=== PATIENT | female | born 1945 | race Caucasian/White ===

== ENCOUNTER 2018-02-14 01:58 | Outpatient (CLI) | payer BC, SELFPAY ==
[2018-02-14 11:52] LABS: CREATININE 0.88 mg/dL (0.55-1.02); Cholesterol 183 mg/dL (50-200); HDL Cholesterol 40 mg/dL (40-60); LDL CHOLESTEROL 114 mg/dL (<100); Triglyceride 189 mg/dL (30-150)
[2018-02-14 12:50] LABS: Hemoglobin A1C 6.2 % (4.5-6.2)
== END 2018-02-14 02:18 ==
PROVIDERS: PCP Family Medicine; Visit Provider Family Medicine
DX: E11.9 Type 2 diabetes mellitus without complications (principal); I10 Essential (primary) hypertension; Z13.220 Encounter for screening for lipoid disorders
CPT/HCPCS: 36415; 80061; 83721; 82565; 83036

== ENCOUNTER 2018-03-18 15:05 | Emergency (ER) | payer BC, MEDICARE, SELFPAY ==
[2018-03-18 15:27] VITALS: BP 167/76; PULSE 80; RESP 18; TEMP 36.4; O2SAT 97
--- NOTE | 2018-03-18 15:36 | DI.RAD_ITS ---
SYMPTOM/DIAGNOSIS: TRAUMA, SWELLING PAIN LEFT ANKLE: There is a comminuted fracture of the distal fibula which is not significantly displaced or angulated. There is a small declivity centrally in the talar dome which could represent an acute or old osteochondral defect. A calcaneal spur is seen. No ankle mortise widening is visible. IMPRESSION: Nondisplaced comminuted fracture of the distal fibula. Question of an old or new osteochondral defect of the talar dome.
--- NOTE | 2018-03-18 16:23 | DI.VRAD_ITS ---
EXAM: XR Left Ankle Complete, 3 or more Views EXAM DATE/TIME: 03/18/2018 3:39 PM CLINICAL HISTORY: 73 years old, female; Pain; Ankle; Left; Patient HX: Slipped on ice; Additional info: L ankle swelling TECHNIQUE: XR Left ankle 3 or more views. COMPARISON: No relevant prior studies available. FINDINGS: Bones/joints: Nondisplaced fracture the distal fibula metaphysis. Minimal degenerative arthrosis of the ankle joint. Findings suspicious for a tiny osteochondral defect within the central aspect of the talus dome. Large superior calcaneal spur. Soft tissues: Swelling of the lateral ankle soft tissues. IMPRESSION: 1. Nondisplaced fracture the distal fibular metaphysis. 2. Findings suspicious for tiny osteochondral defect of the central portion of the talus dome. Dictated and Authenticated by: Vinod Jama MD. Ordering:KELLY Arshad MD
--- NOTE | 2018-03-18 16:35 | W.ED.GENAD ---
Discharge Plan Disposition Patient Disposition: HOME Discharge Details Chief Complaint: Orthopedic Primary Care Provider: Wesly Ren ED Provider: Jeancarlos Chaudhary Home Meds and New Rx's Prescriptions: No Action uktuinbh-uummbbinj-DQ 3.5-10,000-1 mg/mL-unit/mL-% drops,suspension 1 - 2 drp Otic BID PRN Qty: 10 RF: 1 pravastatin 40 mg tablet 40 mg PO HS Qty: 90 RF: 4 trazodone 100 mg tablet 100 mg PO DAILY Qty: 90 RF: 3 triamcinolone acetonide 0.1 % cream 1 applic Topical BID PRN (Reason: ankle rash) Qty: 15 RF: 2 doxycycline hyclate 100 mg capsule 100 mg PO BID Qty: 14 RF: 0 famotidine 20 MG tablet 20 mg PO BID Qty: 60 RF: 11 OneTouch Ultra Test 1 EACH strip 1 strip Miscellaneous BID Qty: 200 RF: 4 aspirin [Canones Aspirin] 81 MG tablet,delayed release (DR/EC) 81 mg PO DAILY Qty: 90 RF: 3 glipizide 5 mg tablet 2.5 - 5 mg PO BID Qty: 135 RF: 4 metformin 500 mg tablet 250 - 500 mg PO BID Qty: 135 RF: 3 ibuprofen 200 MG tablet 400 mg PO DAILY PRN PRNRF: 0 Discharge Data Discharge Date/Time-TO BE ENTERED AT DEPARTURE: 03/18/18 17:15 Medical Decision Making Patient presented the emergency department status post slip and fall on ice and left ankle injury. Patient states lateral ankle pain after fall and difficulty with weightbearing. X-ray imaging was ordered. Patient denied any need of pain medication pending results Review of radiological imaging shows a nondisplaced fracture of the distal fibula and radiologist is seeing findings suggestive of possible talar defect. Patient placed in a walking boot, instructed to be nonweightbearing, and to use a walker. Patient was given a walker due to patient's age and inability to fully utilize crutches and appropriate manner and I feel crutches may increase patient's chance of fall. Patient states that she did not want any medication for pain above [id number] Tylenol or Motrin. Patient placed up on fracture list for orthopedic follow-up and informed to call the office on Tuesday for arrangement of follow-up appointment HPI General Date/Time Provider Initiated Documentation: 03/18/18 15:36. Limitations to Documentation: no limitations. Information obtained by: patient and RN notes reviewed. History of Present Illness 73 year old F presents to the emergency department with the chief complaint of Right ankle injury, described as moderate, with intensity rated at 9. Quality is described as sharp, and is localized to the right and lower extremity. Patient started experiencing this hour(s) (3) and it has been constant. No relieving factors improve symptom(s), Movement worsens symptoms . Patient notes no other symptoms.. Patient did receive the following treatments prior to arrival, none Related Data Home Medications Medication Instructions Recorded Confirmed ibuprofen 400 mg PO DAILY PRN PRN 05/29/13 03/18/18 famotidine 20 mg PO BID #60 tab-cap 06/05/15 03/18/18 blood sugar diagnostic [Onetouch #200 strip 06/15/17 03/18/18 Ultra Test Strips] aspirin [Canones Aspirin] 81 mg PO DAILY #90 tab-cap 06/20/17 03/18/18 glipizide 5 mg tablet 2.5 - 5 mg PO BID #135 tab-cap 12/22/17 03/18/18 metformin 500 mg tablet 250 - 500 mg PO BID #135 tab-cap 12/22/17 03/18/18 doxycycline hyclate 100 mg capsule 100 mg PO BID #14 cap 02/17/18 02/17/18 otzbmjgp-detftogic-ethqwjgjb 3.5 1 - 2 drp OTIC BID PRN #10 ml 02/17/18 03/18/18 mg-10,000 unit/mL-1 % ear drops,susp pravastatin 40 mg tablet 40 mg PO HS #90 tab-cap 02/17/18 03/18/18 trazodone 100 mg tablet 100 mg PO DAILY #90 tab 02/17/18 03/18/18 triamcinolone acetonide 0.1 % 1 applic TOPICAL BID PRN #15 gm 02/17/18 03/18/18 topical cream Previous Rx's Medication Instructions Recorded blood sugar diagnostic [Onetouch #200 strip 06/15/17 Ultra Test Strips] aspirin [Canones Aspirin] 81 mg PO DAILY #90 tab-cap 06/20/17 glipizide 5 mg tablet 2.5 - 5 mg PO BID #135 tab-cap 1018 metformin 500 mg tablet 250 - 500 mg PO BID #135 tab-cap 12/22/17 doxycycline hyclate 100 mg capsule 100 mg PO BID #14 cap 02/17/18 pyrxdxkw-vopfnpnlg-zmdsvxdxq 3.5 1 - 2 drp OTIC BID PRN #10 ml 02/17/18 mg-10,000 unit/mL-1 % ear drops,susp pravastatin 40 mg tablet 40 mg PO HS #90 tab-cap 02/17/18 trazodone 100 mg tablet 100 mg PO DAILY #90 tab 02/17/18 triamcinolone acetonide 0.1 % 1 applic TOPICAL BID PRN #15 gm 02/17/18 topical cream Allergies Allergy/AdvReac Type Severity Reaction Status Date / Time Sulfa (Sulfonamide Allergy Mild swelling Unverified 03/18/18 15:30 Antibiotics) to bottom lip morphine AdvReac Severe GI UPSET Unverified 03/18/18 15:30 tetracycline AdvReac Unknown GI UPSET Unverified 03/18/18 15:30 General Stated Complaint: Orthopedic JESSICA: 4 Review of Systems Cardiovascular Denies syncope Musculoskeletal Reports as per HPI, Denies numbness and Denies tingling Integumentary/Breasts Denies rash, Denies sores and Denies wounds Neurologic Denies syncope, Denies numbness and Denies tingling PFSH Medical History Constipation DM (diabetes mellitus) GERD (gastroesophageal reflux disease) Surgical History Breast, Mastectomy Cholecystectomy (~04/2009) Colonoscopy - MAC (07/14/16) EGD - MAC breast reconstruction Family History Mother No problems noted. Father Diabetes Heart disease Sister No problems noted. Brother Diabetes Essential hypertension Heart disease Hypercholesteremia Skin cancer Maternal Grandfather Heart disease Paternal Grandfather No problems noted. Maternal Grandmother Uterine cancer Paternal Grandmother No problems noted. Daughter Medulloblastoma Hyperlipidemia Maternal Aunt Breast cancer Nephew ALS (amyotrophic lateral sclerosis) Social History current occupational status: retired pets and animals: Yes pets and animals: cat(s) frequency: 1-2 times per week duration: 15-30 minutes/day Smoking/Tobacco Use Status: Never alcohol intake: current alcohol intake frequency: holidays/special occasions only substance use type: does not use rea/religious: [employer] special rea needs: No Exam Const General: cooperative and no acute distress Orientation: alert, awake and oriented x3 HENMT Head: atraumatic Resp Effort & Inspection: normal respiratory effort and able to speak in complete sentences Cardio Rate: regular rate Rhythm: regular rhythm Extrem Right lower extremity: knee Details: normal to inspection; no tenderness, lower leg Details: no tenderness and ankle Details: tenderness Location: of the lateral malleolus, swelling Details: laterally and abnormal ROM Details: pain with active ROM and pain with passive ROM; achilles tendon exam normal Left lower extremity: normal to inspection Course Vital Signs Temperature 36.4 C L 03/18/18 15:27 Pulse 80 03/18/18 15:27 Respiratory Rate 18 03/18/18 15:27 Blood Pressure 167/76 H 03/18/18 15:27 Pulse Oximetry 97 03/18/18 15:27 Temperature 36.4 C L 03/18/18 15:27 Temperature Source Temporal Artery Scan 03/18/18 15:27 Pulse 80 03/18/18 15:27 Respiratory Rate 18 03/18/18 15:27 Respiratory Effort Non-Labored 03/18/18 15:29 Blood Pressure 167/76 H 03/18/18 15:27 Blood Pressure Position Sitting 03/18/18 15:27 Pulse Oximetry 97 03/18/18 15:27 Oxygen Delivery Method Room Air 03/18/18 15:27 Oxygen Flow Rate 0 03/18/18 15:27 Pain Level 9 03/18/18 15:35
--- NOTE | 2018-03-18 16:41 | ED.GENADUL_ITS ---
Discharge Plan Disposition Patient Disposition: HOME Discharge Details Chief Complaint: Orthopedic Primary Care Provider: Wesyl Ren ED Provider: Jeancarlos Chaudhary Home Meds and New Rx's Prescriptions: No Action bxvucrqa-vvlavonse-DV 3.5-10,000-1 mg/mL-unit/mL-% drops,suspension 1 - 2 drp Otic BID PRN Qty: 10 RF: 1 pravastatin 40 mg tablet 40 mg PO HS Qty: 90 RF: 4 trazodone 100 mg tablet 100 mg PO DAILY Qty: 90 RF: 3 triamcinolone acetonide 0.1 % cream 1 applic Topical BID PRN (Reason: ankle rash) Qty: 15 RF: 2 doxycycline hyclate 100 mg capsule 100 mg PO BID Qty: 14 RF: 0 famotidine 20 MG tablet 20 mg PO BID Qty: 60 RF: 11 OneTouch Ultra Test 1 EACH strip 1 strip Miscellaneous BID Qty: 200 RF: 4 aspirin [Blanchard Aspirin] 81 MG tablet,delayed release (DR/EC) 81 mg PO DAILY Qty: 90 RF: 3 glipizide 5 mg tablet 2.5 - 5 mg PO BID Qty: 135 RF: 4 metformin 500 mg tablet 250 - 500 mg PO BID Qty: 135 RF: 3 ibuprofen 200 MG tablet 400 mg PO DAILY PRN PRNRF: 0 Discharge Data Discharge Date/Time-TO BE ENTERED AT DEPARTURE: 03/18/18 17:15 Medical Decision Making Patient presented the emergency department status post slip and fall on ice and left ankle injury. Patient states lateral ankle pain after fall and difficulty with weightbearing. X-ray imaging was ordered. Patient denied any need of pain medication pending results Review of radiological imaging shows a nondisplaced fracture of the distal fibula and radiologist is seeing findings suggestive of possible talar defect. Patient placed in a walking boot, instructed to be nonweightbearing, and to use a walker. Patient was given a walker due to patient's age and inability to fully utilize crutches and appropriate manner and I feel crutches may increase patient's chance of fall. Patient states that she did not want any medication for pain above [id number] Tylenol or Motrin. Patient placed up on fracture list for orthopedic follow-up and informed to call the office on Tuesday for arrangement of follow-up appointment HPI General Date/Time Provider Initiated Documentation: 03/18/18 15:36 . Limitations to Documentation: no limitations . Information obtained by: patient and RN notes reviewed . History of Present Illness 73 year old F presents to the emergency department with the chief complaint of Right ankle injury, described as moderate, with intensity rated at 9. Quality is described as sharp, and is localized to the right and lower extremity. Patient started experiencing this hour(s) (3) and it has been constant. No relieving factors improve symptom(s), Movement worsens symptoms . Patient notes no other symptoms.. Patient did receive the following treatments prior to arrival, none Related Data Home Medications Medication Instructions Recorded Confirmed ibuprofen 400 mg PO DAILY PRN PRN 05/29/13 03/18/18 famotidine 20 mg PO BID #60 tab-cap 06/05/15 03/18/18 blood sugar diagnostic [Onetouch #200 strip 06/15/17 03/18/18 Ultra Test Strips] aspirin [Blanchard Aspirin] 81 mg PO DAILY #90 tab-cap 06/20/17 03/18/18 glipizide 5 mg tablet 2.5 - 5 mg PO BID #135 tab-cap 12/22/17 03/18/18 metformin 500 mg tablet 250 - 500 mg PO BID #135 tab-cap 12/22/17 03/18/18 doxycycline hyclate 100 mg capsule 100 mg PO BID #14 cap 02/17/18 02/17/18 pstulpfo-vfdzqnstn-bzkflbhzh 3.5 1 - 2 drp OTIC BID PRN #10 ml 02/17/18 03/18/18 mg-10,000 unit/mL-1 % ear drops,susp pravastatin 40 mg tablet 40 mg PO HS #90 tab-cap 02/17/18 03/18/18 trazodone 100 mg tablet 100 mg PO DAILY #90 tab 02/17/18 03/18/18 triamcinolone acetonide 0.1 % 1 applic TOPICAL BID PRN #15 gm 02/17/18 03/18/18 topical cream Previous Rx's Medication Instructions Recorded blood sugar diagnostic [Onetouch #200 strip 06/15/17 Ultra Test Strips] aspirin [Blanchard Aspirin] 81 mg PO DAILY #90 tab-cap 06/20/17 glipizide 5 mg tablet 2.5 - 5 mg PO BID #135 tab-cap 1018 metformin 500 mg tablet 250 - 500 mg PO BID #135 tab-cap 12/22/17 doxycycline hyclate 100 mg capsule 100 mg PO BID #14 cap 02/17/18 cltliryj-hpyjrkxcf-acmzgfwug 3.5 1 - 2 drp OTIC BID PRN #10 ml 02/17/18 mg-10,000 unit/mL-1 % ear drops,susp pravastatin 40 mg tablet 40 mg PO HS #90 tab-cap 02/17/18 trazodone 100 mg tablet 100 mg PO DAILY #90 tab 02/17/18 triamcinolone acetonide 0.1 % 1 applic TOPICAL BID PRN #15 gm 02/17/18 topical cream Allergies Allergy/AdvReac Type Severity Reaction Status Date / Time Sulfa (Sulfonamide Allergy Mild swelling Unverified 03/18/18 15:30 Antibiotics) to bottom lip morphine AdvReac Severe GI UPSET Unverified 03/18/18 15:30 tetracycline AdvReac Unknown GI UPSET Unverified 03/18/18 15:30 General Stated Complaint: Orthopedic JESSICA: 4 Review of Systems Cardiovascular Denies syncope Musculoskeletal Reports as per HPI, Denies numbness and Denies tingling Integumentary/Breasts Denies rash, Denies sores and Denies wounds Neurologic Denies syncope, Denies numbness and Denies tingling PFSH Medical History Constipation DM (diabetes mellitus) GERD (gastroesophageal reflux disease) Surgical History Breast, Mastectomy Cholecystectomy (~04/2009) Colonoscopy - MAC (07/14/16) EGD - MAC breast reconstruction Family History Mother No problems noted. Father Diabetes Heart disease Sister No problems noted. Brother Diabetes Essential hypertension Heart disease Hypercholesteremia Skin cancer Maternal Grandfather Heart disease Paternal Grandfather No problems noted. Maternal Grandmother Uterine cancer Paternal Grandmother No problems noted. Daughter Medulloblastoma Hyperlipidemia Maternal Aunt Breast cancer Nephew ALS (amyotrophic lateral sclerosis) Social History current occupational status: retired pets and animals: Yes pets and animals: cat(s) frequency: 1-2 times per week duration: 15-30 minutes/day Smoking/Tobacco Use Status: Never alcohol intake: current alcohol intake frequency: holidays/special occasions only substance use type: does not use era/church: [employer] special rea needs: No Exam Const General: cooperative and no acute distress Orientation: alert, awake and oriented x3 HENMT Head: atraumatic Resp Effort & Inspection: normal respiratory effort and able to speak in complete sentences Cardio Rate: regular rate Rhythm: regular rhythm Extrem Right lower extremity: knee Details: normal to inspection; no tenderness, lower leg Details: no tenderness and ankle Details: tenderness Location: of the lateral malleolus, swelling Details: laterally and abnormal ROM Details: pain with active ROM and pain with passive ROM; achilles tendon exam normal Left lower extremity: normal to inspection Course Vital Signs Temperature 36.4 C L 03/18/18 15:27 Pulse 80 03/18/18 15:27 Respiratory Rate 18 03/18/18 15:27 Blood Pressure 167/76 H 03/18/18 15:27 Pulse Oximetry 97 03/18/18 15:27 Temperature 36.4 C L 03/18/18 15:27 Temperature Source Temporal Artery Scan 03/18/18 15:27 Pulse 80 03/18/18 15:27 Respiratory Rate 18 03/18/18 15:27 Respiratory Effort Non-Labored 03/18/18 15:29 Blood Pressure 167/76 H 03/18/18 15:27 Blood Pressure Position Sitting 03/18/18 15:27 Pulse Oximetry 97 03/18/18 15:27 Oxygen Delivery Method Room Air 03/18/18 15:27 Oxygen Flow Rate 0 03/18/18 15:27 Pain Level 9 03/18/18 15:35
--- NOTE | 2018-03-18 17:27 | PDOC.ERCMPRO ---
- If Service Date Differs Date of service: 03/18/18 Time of Service: 17:27 Care Management Progress Note Patient seen in ED for need of walker. Cindy was at the ED for a fracture to her left fibula. CM provided patient with a FWW from [employer]. All necessary paperwork signed by patient and forwarded to GRAYL.
--- NOTE | 2018-03-18 18:08 | NUR.NOTE ---
sent home with a walker.Nursing Note:
== END 2018-03-18 17:15 | disposition home or self-care (01) ==
PROVIDERS: Emergency Provider Nurse Practitioner Family; PCP Family Medicine
DX: S82.65XA Nondisplaced fracture of lateral malleolus of left fibula, initial encounter for closed fracture (principal); W00.0XXA Fall on same level due to ice and snow, initial encounter; E11.9 Type 2 diabetes mellitus without complications; Z79.84 Long term (current) use of oral hypoglycemic drugs
CPT/HCPCS: 29505; 99284; 73610

== ENCOUNTER 2018-04-26 10:33 | Outpatient (CLI) | payer OTHER, SELFPAY ==
--- NOTE | 2018-04-26 10:31 | DI.RAD_ITS ---
SYMPTOM/DIAGNOSIS: INJURY, PAIN LEFT ANKLE: Comparison is made with 03/18/18. There has been no change in the previously noted distal fibular fracture which shows some interval healing when compared with the previous exam. No new abnormalities are seen.
== END 2018-04-26 10:53 ==
PROVIDERS: PCP Family Medicine; Visit Provider Physician Assistant Surgical
DX: S82.65XD Nondisplaced fracture of lateral malleolus of left fibula, subsequent encounter for closed fracture with routine healing (principal); M25.572 Pain in left ankle and joints of left foot
CPT/HCPCS: 73600

== ENCOUNTER 2018-11-03 00:39 | Outpatient (CLI) | payer OTHER, SELFPAY ==
--- NOTE | 2018-11-03 13:56 | MERGE_ITS ---
*[facility]* *[facility]* [address] [place] [address] Date of study: 11/03/2018 Transthoracic Echocardiography M-mode, complete 2D, complete spectral Doppler, and color Doppler *STUDY CONCLUSIONS* Summary: 1. Left ventricle: The cavity size was normal. Wall thickness was normal. Systolic function was mildly reduced. The estimated ejection fraction was 45-50%. Diffuse hypokinesis. 2. Right ventricle: The cavity size was normal. Systolic function was normal. 3. Mitral valve: There was moderate regurgitation. 4. Inferior vena cava: The vessel was normal in size. The respirophasic diameter changes were in the normal range (greater than or equal to 50%), consistent with normal central venous pressure. *PATIENT PRESENTATION* Height: 167.6cm (66in ) S/D Pressure: 124 / 75 Weight: 88.9kg (195.6lb ) BSA: 2.06m^2 Test start time: 02:00 PM. Test stop time: 02:45 PM. 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 Pertinent images and digital data are archived for permanent storage and are available for subsequent review. Comparison was made to the study of 01/29/2017. Study status: Routine. Transthoracic echocardiography. M-mode, complete 2D, complete spectral Doppler, and color Doppler. A Transthoracic Echocardiogram was performed. Scanning was performed from the parasternal, apical, subcostal, and suprasternal notch acoustic windows. Images were obtained using an [employer] 2000 cardiac ultrasound machine. Image quality was adequate. Study completion: The patient tolerated the procedure well. There were no complications. History: PMH: Non Rheumatic Mitral Regurgitation. *CARDIAC ANATOMY* Left ventricle: The cavity size was normal. Wall thickness was normal. Systolic function was mildly reduced. The estimated ejection fraction was 45-50%. Diffuse hypokinesis. Findings consistent with diastolic dysfunction. There was no evidence of elevated ventricular filling pressure by Doppler parameters. Aortic valve: Trileaflet; normal thickness leaflets. Mobility was not restricted. Doppler: Transvalvular velocity was within the normal range. There was no stenosis. There was no significant regurgitation. VTI ratio of LVOT to aortic valve: 0.78. Valve area (VTI): 2.8cm^2. Indexed valve area (VTI): 1.3cm^2/m^2. Peak velocity ratio of LVOT to aortic valve: 0.75. Valve area (Vmax): 2.7cm^2. Indexed valve area (Vmax): 1.3cm^2/m^2. Mean velocity ratio of LVOT to aortic valve: 0.65. Valve area (Vmean): 2.3cm^2. Indexed valve area (Vmean): 1.1cm^2/m^2. Mean gradient (S): 4.9mm Hg. Peak gradient (S): 8.2mm Hg. Aorta: Aortic root: The aortic root was normal in size. Ascending aorta: The ascending aorta was normal in size. Mitral valve: Structurally normal valve. Mobility was not restricted. Doppler: Transvalvular velocity was within the normal range. There was no evidence for stenosis. There was moderate regurgitation. Valve area by pressure half-time: 3.6cm^2. Indexed valve area by pressure half-time: 1.8cm^2/m^2. Left atrium: The atrium was normal in size. Right ventricle: The cavity size was normal. Systolic function was normal. Pulmonic valve: Poorly visualized. Doppler: Transvalvular velocity was within the normal range. There was no evidence for stenosis. There was no significant regurgitation. Tricuspid valve: Structurally normal valve. Doppler: Transvalvular velocity was within the normal range. There was no evidence for stenosis. There was trivial regurgitation. Pulmonary artery: Poorly visualized. Systolic pressure could not be accurately estimated. Right atrium: The atrium was normal in size. Pericardium: There was no pericardial effusion. Systemic veins: Inferior vena cava: The vessel was normal in size. The respirophasic diameter changes were in the normal range (greater than or equal to 50%), consistent with normal central venous pressure. Measurements Left ventricle Value 02/07/2017 Reference LV ID, ED, PLAX 5.1 cm 4.9 3.5 - 6.0 LV ID, ES, PLAX 3.9 cm 3.4 2.1 - 4.0 LV PW thickness, ED, PLAX 1.0 cm 1.0 LV end-diastolic volume, 95 ml 80 1-p A2C LV ejection fraction, 1-p 49 % 52 A2C LV end-diastolic volume, 102 ml 91 1-p A4C LV ejection fraction, 1-p 49 % 58 A4C LV e', lateral 0.069 m/sec LV E/e', lateral 10 LV e', medial 0.059 m/sec LV E/e', medial 11 LV e', average 0.064 m/sec LV E/e', average 10 Ventricular septum Value 02/07/2017 Reference IVS thickness, ED, PLAX 1.0 cm 1.1 LVOT Value 02/07/2017 Reference LVOT ID, A-P 2.1 cm 2.0 LVOT area 3.6 cm^2 3.1 LVOT peak velocity, S 1.08 m/sec 1.06 LVOT mean velocity, S 0.7 m/sec LVOT VTI, S 24.8 cm 26.3 LVOT peak gradient, S 4.6 mm Hg LVOT mean gradient, S 2.3 mm Hg 3.2 Stroke volume (SV), LVOT 89 ml DP Stroke index (SV/bsa), 43 ml/m^2 LVOT DP Aortic valve Value 02/07/2017 Reference Aortic valve peak 1.4 m/sec 1.6 velocity, S Aortic valve mean 1.1 m/sec 0 velocity, S Aortic valve VTI, S 32.0 cm Aortic mean gradient, S 4.9 mm Hg 5.7 Aortic peak gradient, S 8.2 mm Hg 10.2 VTI ratio, LVOT/AV 0.78 0.69 Aortic valve area, VTI 2.8 cm^2 2.1 Velocity ratio, peak, 0.75 0.66 LVOT/AV Aortic valve area, peak 2.7 cm^2 2 velocity Velocity ratio, mean, 0.65 LVOT/AV Aortic valve area, mean 2.3 cm^2 velocity Aortic valve area/bsa, 1.1 cm^2/m^2 mean velocity Aorta Value 02/07/2017 Reference Aortic root ID, ED 3.0 cm 3.3 Ascending aorta ID, A-P, S 3.4 cm 3.7 Left atrium Value 02/07/2017 Reference LA ID, A-P, ES 3.9 cm LA ID/bsa, A-P 1.9 cm/m^2 <=2.2 LA volume, ES, 2-p 47 ml LA volume/bsa, ES, 2-p 23 ml/m^2 LA/aortic root ratio 1.32 1.16 Mitral valve Value 02/07/2017 Reference Mitral E-wave peak 0.67 m/sec 0.66 velocity Mitral A-wave peak 1.14 m/sec 1.16 velocity Mitral deceleration time 209 ms 284 150 - 230 Mitral pressure half-time 61 ms 82 Mitral E/A ratio, peak 0.59 0.57 Mitral valve area, PHT, DP 3.6 cm^2 2.7 Tricuspid valve Value 02/07/2017 Reference Tricuspid regurg peak 2.6 m/sec 2.7 velocity Tricuspid peak RV-RA 26.9 mm Hg 30 gradient Right atrium Value 02/07/2017 Reference RA area, ES, A4C 15 cm^2 16.5 8.3 - 19.5 Legend: (L) and (H) carolyn values outside specified reference range. I have personally reviewed the images and have reviewed and edited the reported findings. Electronically signed by Dwayne Foreman 11/04/2018 09:38
== END 2018-11-03 00:59 ==
PROVIDERS: PCP Family Medicine; Visit Provider Nurse Practitioner Primary Care
DX: I34.0 Nonrheumatic mitral (valve) insufficiency (principal); I50.1 Left ventricular failure, unspecified
CPT/HCPCS: 93306

== ENCOUNTER 2019-04-14 02:27 | Outpatient (CLI) | payer OTHER, SELFPAY ==
[2019-04-14 11:22] LABS: Hemoglobin A1C 6.7 % (3.8-5.6)
[2019-04-14 11:39] LABS: Anion Gap 8.3 mmol/L (3-11); BUN 13 mg/dL (7-18); CO2 32.7 mmol/L (21.0-32.0); CREATININE 0.98 mg/dL (0.55-1.02); Calcium 8.7 mg/dL (8.5-10.1); Chloride 97 mmol/L (98-107); Estimated GFR 55.48 (mL/min/1.73m2); Glucose 143 mg/dL (74-106); Potassium 3.2 mmol/L (3.5-5.1); Sodium 138 mmol/L (136-145)
== END 2019-04-14 02:47 ==
PROVIDERS: Internal Medicine Cardiovascular Disease; PCP Family Medicine; Visit Provider Family Medicine
DX: I10 Essential (primary) hypertension (principal); R73.9 Hyperglycemia, unspecified; Z79.899 Other long term (current) drug therapy
CPT/HCPCS: 36415; 80048; 83036

== ENCOUNTER 2019-10-16 02:12 | Outpatient (CLI) | payer OTHER, SELFPAY ==
[2019-10-16 09:06] LABS: Hemoglobin A1C 6.3 % (3.8-5.6)
[2019-10-16 10:05] LABS: Calculated LDL 89 mg/dL (<100); Cholesterol 158 mg/dL (<200); HDL Cholesterol 49 mg/dL (40-60); Potassium 3.7 mmol/L (3.5-5.1); Triglyceride 100 mg/dL (<150)
== END 2019-10-16 02:32 ==
PROVIDERS: PCP Family Medicine; Visit Provider Family Medicine
DX: R73.9 Hyperglycemia, unspecified (principal); E78.5 Hyperlipidemia, unspecified; I10 Essential (primary) hypertension
CPT/HCPCS: 36415; 80061; 83036; 84132

== ENCOUNTER 2020-01-08 12:52 | Outpatient (REF) | payer OTHER, SELFPAY | END 2020-01-08 13:12 | LOC: LBN 12:52 | PROVIDERS: PCP Family Medicine; Visit Provider Nurse Practitioner Family | DX: R10.2 Pelvic and perineal pain (principal); R82.998 Other abnormal findings in urine | CPT/HCPCS: 87086 ==

== ENCOUNTER 2020-11-10 02:52 | Outpatient (CLI) | payer OTHER, SELFPAY ==
[2020-11-10 10:47] LABS: Hemoglobin A1C 6.5 % (<5.7)
[2020-11-10 11:27] LABS: Anion Gap 9.3 mmol/L (3-11); BUN 30 mg/dL (7-18); CO2 29.7 mmol/L (21.0-32.0); CREATININE 1.1 mg/dL (0.55-1.02); Calcium 8.6 mg/dL (8.5-10.1); Chloride 104 mmol/L (98-107); Estimated GFR 48.42 (mL/min/1.73m2); Glucose 168 mg/dL (74-106); Magnesium 1.9 mg/dL (1.8-2.4); Potassium 3.2 mmol/L (3.5-5.1); Sodium 143 mmol/L (136-145); Vitamin B12 395 pg/mL (193-986)
== END 2020-11-10 02:53 | disposition home or self-care (01) ==
LOC: LBO 02:53
PROVIDERS: PCP Family Medicine; Visit Provider Family Medicine
DX: D64.9 Anemia, unspecified (principal); E11.9 Type 2 diabetes mellitus without complications; E83.42 Hypomagnesemia; E87.1 Hypo-osmolality and hyponatremia
CPT/HCPCS: 36415; 80048; 82607; 83036; 83735

== ENCOUNTER 2020-11-20 03:36 | Outpatient (CLI) | payer OTHER, SELFPAY ==
[2020-11-20 08:29] LABS: HCT 34.7 % (36.0-46.0); HGB 11.7 g/dL (11.2-15.7); MCHC 33.7 % (32.0-36.0); MCV 85.9 fL (80-95); MPV 9.8 fL (8.0-11.0); Platelet Count 213 10^3/uL (130-400); RBC 4.04 10^6/uL (3.93-5.22); RDW 12.8 % (11.7-14.6); RDW-SD 40.2 fL; WBC 6.15 10^3/uL (4.4-10.8)
== END 2020-11-20 03:37 | disposition home or self-care (01) ==
LOC: LBO 03:36
PROVIDERS: PCP Family Medicine; Visit Provider Family Medicine
DX: I10 Essential (primary) hypertension (principal); R53.83 Other fatigue
CPT/HCPCS: 36415; 85027; 84132

== ENCOUNTER 2020-12-09 02:20 | Outpatient (CLI) | payer OTHER, SELFPAY ==
[2020-12-09 17:34] LABS: Potassium 3.6 mmol/L (3.5-5.1)
== END 2020-12-09 02:21 | disposition home or self-care (01) ==
LOC: LBO 02:20
PROVIDERS: PCP Family Medicine; Visit Provider Family Medicine
DX: I10 Essential (primary) hypertension (principal)
CPT/HCPCS: 36415; 84132

== ENCOUNTER 2021-04-06 17:19 | Emergency (ER) | payer BC, SELFPAY ==
--- NOTE | 2021-04-06 17:15 | DI.CT_ITS ---
Exam(s) CT BRAIN NECK CTA EXAM: CT BRAIN NECK CTA CLINICAL HISTORY: syncope,dizzy, eval for stroke/cerebellum. TECHNIQUE: Imaging Protocol: Axial CT angiography was performed with multi-slice acquisition and mu lti-planar and/or 3D reconstructions. CONTRAST MATERIAL: Intravenous: Omnipaque 350 Contrast volume:85cc COMPARISON: No exams were available for comparison FINDINGS: CTA Neck W: Aortic arch anatomy: The aortic arch anatomy is conventional. Anterior circulation: No significant stenosis at the origin the great vessel off the aortic arch. Both common carotid miguel rosalva ascend with normal luminal diameters. There is no significant atherosclerotic stenosis at the c arotid bifurcation and proximal ICAs and both ICAs are patent in the neck and skull base-carotid kishan ls. Posterior circulation: Both vertebral arteries are patent without significant stenosis at their origins off the subclavian a rteries and both are patent in the foramen transversarium. The left vertebral artery is dominant. T here is no vertebral artery dissection. Both vertebral arteries contribute to the formation of the b asilar artery at the skull base. CTA Brain W: Anterior circulation: Both internal carotid arteries are patent within the cavernous sinuses and supraclinoid aspects. Bot h A1 segments are patent as are the anterior cerebral arteries. No aneurysm at the level of the ante rior communicating artery. Posterior circulation: Basilar artery is patent. Distally superior cerebellar arteries are patent. Posterior cerebral miguel rosalva patent. No significant stenosis. No aneurysm seen at the level of the basilar tip. CT BRAIN: There is no evidence of intracranial hemorrhage, mass effect, or shift of midline structures. There are no extra-axial fluid collections. Ventricles are not enlarged or shifted. There are no ring enh ancing lesions in the brain and no abnormal meningeal enhancement. IMPRESSION: 1. No significant atherosclerotic narrowing of the carotid arteries in the neck. Both vertebral miguel rosalva are also patent 2. No significant stenosis nor aneurysm in the intracranial arteries. 3. No acute intracranial findings. RADIATION DOSE DELIVERED: 2,009.57mGy.cm Total DLP DATA REPOSITORY: All CT scans at this facility are submitted to the National Radiology Data Registry (NRDR) Dose Index Registry (DIR) with the [employer] (ACR). RADIATION OPTIMIZATION: All CT scans at this facility use at least one of these dose optimization te chniques: automated exposure control; mA and/or kV adjustment per patient size (includes targeted exa ms where dose is matched to clinical indication); or iterative reconstruction.
--- NOTE | 2021-04-06 17:15 | RT.EKG_ITS ---
APPROVED REPORT Exam: Resting ECG Reason for Exam: syncope Patient Location: E HR:97 bpm ECG Measurements Heart Rate 97 AXIS MI [id number] P [id number] QRSd 138 QRS -68 QT 477 T 113 QTc 607 Conclusion Physician: sinus w/ rbbb, unchanged from prior ekg
[2021-04-06 17:28] VITALS: BP 133/63; PULSE 67; RESP 17; TEMP 36.6; O2SAT 98
--- NOTE | 2021-04-06 17:28 | W.ED.GENAD ---
Discharge Plan Disposition Patient Disposition: HOME Condition: Good Discharge Details Clinical Impression: Peripheral vertigo, Acute hypokalemia Primary Care Provider: Wesly Ren ED Provider: Newton Tucker Home Meds and New Rx's Prescriptions: New meclizine 25 mg tablet 25 mg PO TID Qty: 20 RF: 0 Continued (DME) blood sugar diagnostic Strip 1 strip Miscellaneous BID Qty: 200 RF: 4 chlorthalidone 25 mg tablet 25 mg PO DAILY Qty: 90 RF: 3 (DME) FreeStyle Hamida 14 Day Henderson Misc See Rx Instructions .ROUTE .MEDSUPPLY Qty: 1 RF: 0 hyoscyamine sulfate 0.125 mg tablet 0.125 mg PO BID-QID PRNRF: 0 mometasone 0.1 % cream 1 applic topical DAILY RF: 0 psyllium husk [Metamucil] 0.4 gram capsule 0.4 g PO DAILY RF: 0 (DME) FreeStyle Hamida 14 Day Sensor Kit See Rx Instructions .ROUTE .MEDSUPPLY Qty: 2 RF: 11 glipizide 5 mg tablet 2.5 - 5 mg PO BID Qty: 135 RF: 4 metformin 500 mg tablet 250 - 500 mg PO BID Qty: 135 RF: 3 trazodone 100 mg tablet 100 mg PO DAILY Qty: 90 RF: 3 triamcinolone acetonide 0.1 % cream 1 applic Topical BID PRN (Reason: ankle rash) Qty: 15 RF: 2 (DME) FreeStyle Precision Vlad Strips Strip See Rx Instructions .ROUTE .MEDSUPPLY Qty: 200 RF: 3 Shingrix (PF) 50 mcg/0.5 mL suspension for reconstitution 0.5 ml IM ONCE Qty: 1 RF: 1 pravastatin 40 mg tablet 40 mg PO HS Qty: 90 RF: 4 famotidine 20 mg tablet 20 mg PO BID PRNQty: 60 RF: 11 (DME) blood-glucose meter [Contour Next Glucose Meter] Kit See Rx Instructions .ROUTE .MEDSUPPLY Qty: 1 RF: 0 (DME) Contour Next Test Strips Strip See Rx Instructions .ROUTE .MEDSUPPLY Qty: 200 RF: 3 (DME) lancets [CareTouch Safety Lancets] 28 gauge misc See Rx Instructions .ROUTE .MEDSUPPLY Qty: 200 RF: 3 potassium chloride 10 mEq tablet extended release 20 meq PO DAILY Qty: 180 RF: 3 escitalopram oxalate 20 mg tablet 20 mg PO DAILY Qty: 90 RF: 3 ibuprofen 200 MG tablet 400 mg PO DAILY PRN PRNRF: 0 Discharge Instructions Instructions: Hypokalemia (ED), Benign Paroxysmal Positional Vertigo (ED) Additional Instructions: At this time your CAT scan is normal, and your labs are reassuring. Your potassium was slightly low but we have replaced this year. I feel that your symptoms are likely secondary to peripheral vertigo mild dehydration. Please drink plenty of fluids and stay well-hydrated. We have sent you a prescription for meclizine. This is been sent to your pharmacy on file. Please take this as directed to help with your dizziness. If you notice any worsening of your symptoms, or any new symptoms such as vomiting, diarrhea, fever, chills, shortness of breath, chest pain, numbness, weakness, or fainting , please return immediately to the emergency department for reevaluation. Please follow up with your primary care provider as soon as possible for reassessment and reevaluation. As always, it was a pleasure participating in your medical care today. Referrals: Wesly Ren MD [Primary Care Provider] - Medical Decision Making 76-year-old female with a past medical history of previous severe swimmer's ear, previous neoplasm of the breast in 1992, diabetes mellitus, who presents today for lightheadedness, nausea, vomiting, and syncope. Earlier today at 3 PM patient states she began to get very lightheaded, she is nauseous and had a few episodes of vomiting. In about an hour or so prior to arrival the patient did have an episode of syncope where she passed out but it does not sound like she hit her head per EMS or family report. Patient does admit to notable dizziness, she states that the room is spinning. She denies any tinnitus. She denies any history of this in the past. She denies any headache. She denies any chest pain or shortness of breath. She denies any hematemesis. Right now she states that she feels uneasy and weak. No other complaints at this time. No other modifying factors. Physical exam demonstrates mild dizziness subjectively with positive right-sided unidirectional fatigable nystagmus. She is slightly unsteady but is able to ambulate without a wide-based gait. Neurologic exam is notably reassuring otherwise. Head impulse test is notably worsening for symptoms to the right, only slightly to the left. Suspect peripheral vertigo. However because of patient's age and risk factors we will get a CT scan of the head, rehydrate give meclizine monitor closely and reassess. Differential is much lower for cerebellar stroke or metabolic abnormality. 7:46 PM Laboratory work-up is returned relatively unremarkable. No significant electrolyte abnormalities, renal function stable. However BUN is high at 24, creatinine 1.2 suggesting mild prerenal dehydration. Potassium low at 3.0, we will replace this with 10 of IV potassium and 40 of oral potassium. Patient is feeling much better. We did get her up, and ambulate her around the room and she states she feels much steadier than she did before. CT scan shows no evidence of acute process or other abnormality. We will get a repeat troponin, but at this time the patient signs and symptoms are notably consistent with peripheral vertigo. We will continue to monitor and expect for discharge if repeat troponin and EKG are stable. 9:34 PM Repeat EKG and delta troponin are both normal. CT scan is negative for acute process. Patient has been rehydrated, and her potassium has been supplemented. She is feeling much better. Repeat exam demonstrates no evidence of ataxia. She is steady. No unsteadiness or neurologic deficit. Symptoms at this time are clinically consistent with peripheral vertigo compounded by dehydration and low potassium. No evidence at this time clinically of concerning neurologic abnormality, cardiac abnormality or other pathology requiring inpatient admission further evaluation. At this time patient is clinically stable for discharge. Discussed red flags which to return. Discussed the case with the patient's . I have extensively reviewed the treatment plan and discharge instructions with the patient. I have addressed all patient concerns at this time. The patient was made aware of what symptoms to monitor for that would warrant a return to the emergency department. Discussed the plan with the patient, they demonstrate verbal understanding and agreement with our assessment and plan at this time. The documentation in this chart was dictated using [employer] dictation software. Please excuse any dictation errors. FINDINGS: ANTERIOR CIRCULATION: Right internal carotid artery: Intracranial segment is patent with no significant stenosis or occlusion. No aneurysm. Right middle cerebral artery: No occlusion or significant stenosis. No aneurysm. Right anterior cerebral artery: No occlusion or significant stenosis. No aneurysm. Left internal carotid artery: Intracranial segment is patent with no significant stenosis. No aneurysm. Left middle cerebral artery: No occlusion or significant stenosis. No aneurysm. Left anterior cerebral artery: No occlusion or significant stenosis. No aneurysm. POSTERIOR CIRCULATION: Right vertebral artery: No occlusion or significant stenosis. No aneurysm. Left vertebral artery: No occlusion or significant stenosis. No aneurysm. Basilar artery: No occlusion or significant stenosis. No aneurysm. Right posterior cerebral artery: No occlusion or significant stenosis. No aneurysm. Left posterior cerebral artery: No occlusion or significant stenosis. No aneurysm. HEAD: Brain: Unremarkable. No acute intracranial hemorrhage. No significant white matter disease. No edema. Cerebral ventricles: Normal. No ventriculomegaly. Bones/joints: Unremarkable. No acute fracture. Paranasal sinuses: Visualized sinuses are normal. No fluid levels. Mastoid air cells: Visualized mastoids are normal. No mastoid effusion. Soft tissues: Unremarkable. IMPRESSION: No large vessel occlusion. Unremarkable CT head. FINDINGS: Right common carotid artery: No stenosis. No dissection or occlusion. Right internal carotid artery: No stenosis of the extracranial segment. No dissection or occlusion. Right external carotid artery: No occlusion or stenosis of the origin Left common carotid artery: No stenosis. No dissection or occlusion. Left internal carotid artery: No stenosis of the extracranial segment. No dissection or occlusion. Left external carotid artery: No occlusion or stenosis of the origin. Right vertebral artery: No stenosis. No dissection or occlusion. Left vertebral artery: No stenosis. No dissection or occlusion. Soft tissues: Normal. No significant soft tissue swelling. Bones/joints: No acute fracture. Moderate-severe multilevel facet arthropathy. Degenerative disc changes are comparatively mild. IMPRESSION: No stenosis or occlusion. HPI General Date/Time Provider Initiated Documentation: 04/06/21 17:31. HPI Narrative: 76-year-old female with a past medical history of previous severe swimmer's ear, previous neoplasm of the breast in 1992, diabetes mellitus, who presents today for lightheadedness, nausea, vomiting, and syncope. Earlier today at 3 PM patient states she began to get very lightheaded, she is nauseous and had a few episodes of vomiting. In about an hour or so prior to arrival the patient did have an episode of syncope where she passed out but it does not sound like she hit her head per EMS or family report. Patient does admit to notable dizziness, she states that the room is spinning. She denies any tinnitus. She denies any history of this in the past. She denies any headache. She denies any chest pain or shortness of breath. She denies any hematemesis. Right now she states that she feels uneasy and weak. No other complaints at this time. No other modifying factors. Related Data Home Medications Medication Instructions Recorded Confirmed ibuprofen 400 mg PO DAILY PRN PRN 05/29/13 04/06/21 famotidine 20 mg tablet 20 mg PO BID PRN #60 tab-cap 01/19/19 04/06/21 blood sugar diagnostic #200 strip 04/18/19 04/06/21 hyoscyamine sulfate 0.125 mg tablet 0.125 mg PO BID-QID PRN 01/08/20 04/06/21 flash glucose scanning reader #1 ea 04/18/20 04/06/21 chlorthalidone 25 mg tablet 25 mg PO DAILY #90 tab 04/24/20 04/06/21 blood sugar diagnostic #200 ea 11/12/20 04/06/21 flash glucose sensor #2 ea 11/12/20 04/06/21 glipizide 5 mg tablet 2.5 - 5 mg PO BID #135 tab-cap 11/12/20 04/06/21 metformin 500 mg tablet 250 - 500 mg PO BID #135 tab-cap 11/12/20 04/06/21 mometasone 0.1 % topical cream 1 applic TOPICAL DAILY 11/12/20 04/06/21 psyllium husk 0.4 gram capsule 0.4 g PO DAILY 11/12/20 04/06/21 trazodone 100 mg tablet 100 mg PO DAILY #90 tab 11/12/20 04/06/21 triamcinolone acetonide 0.1 % 1 applic TOPICAL BID PRN #15 gm 11/12/20 04/06/21 topical cream varicella-zoster glycoE [id number] 0.5 ml IM ONCE #1 ea 11/12/20 04/06/21 adj(PF) 50 mcg/0.5 mL IM susp, kit blood sugar diagnostic #200 ea 12/16/20 04/06/21 blood-glucose meter #1 ea 12/16/20 04/06/21 lancets 28 gauge #200 ea 12/16/20 04/06/21 potassium chloride 10 mEq 20 meq PO DAILY #180 tab 12/30/20 04/06/21 tablet,extended release pravastatin 40 mg tablet 40 mg PO HS #90 tab-cap 02/03/21 04/06/21 escitalopram oxalate 20 mg tablet 20 mg PO DAILY #90 tab 03/17/21 04/06/21 meclizine 25 mg PO TID #20 tab 04/06/21 Previous Rx's Medication Instructions Recorded blood sugar diagnostic #200 strip 04/18/19 flash glucose scanning reader #1 ea 04/18/20 chlorthalidone 25 mg tablet 25 mg PO DAILY #90 tab 04/24/20 blood sugar diagnostic #200 ea 11/12/20 flash glucose sensor #2 ea 11/12/20 glipizide 5 mg tablet 2.5 - 5 mg PO BID #135 tab-cap 11/12/20 metformin 500 mg tablet 250 - 500 mg PO BID #135 tab-cap 11/12/20 trazodone 100 mg tablet 100 mg PO DAILY #90 tab 11/12/20 triamcinolone acetonide 0.1 % 1 applic TOPICAL BID PRN #15 gm 11/12/20 topical cream varicella-zoster glycoE [id number] 0.5 ml IM ONCE #1 ea 11/12/20 adj(PF) 50 mcg/0.5 mL IM susp, kit blood sugar diagnostic #200 ea 12/16/20 blood-glucose meter #1 ea 12/16/20 lancets 28 gauge #200 ea 12/16/20 potassium chloride 10 mEq 20 meq PO DAILY #180 tab 12/30/20 tablet,extended release pravastatin 40 mg tablet 40 mg PO HS #90 tab-cap 02/03/21 escitalopram oxalate 20 mg tablet 20 mg PO DAILY #90 tab 03/17/21 meclizine 25 mg PO TID #20 tab 04/06/21 Allergies Allergy/AdvReac Type Severity Reaction Status Date / Time Sulfa (Sulfonamide Allergy Mild swelling Verified 04/06/21 17:36 Antibiotics) to bottom lip morphine AdvReac Severe GI UPSET Verified 04/06/21 17:36 tetracycline AdvReac Unknown GI UPSET Verified 04/06/21 17:36 lisinopril AdvReac cough Verified 04/06/21 17:36 General JESSICA: 4 Review of Systems All systems reviewed & are unremarkable except as noted in HPI and below PFSH All Active Problems (Updated 04/06/21 @ 19:49 by Newton Tucker DO) Peripheral vertigo (Acute) Acute hypokalemia (Acute) Adjustment disorder with depressed mood (Acute) Restless leg syndrome (Acute) Chronic eczematous otitis externa of both ears (Acute) 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 (Acute) Otitis externa in other diseases classified elsewhere, bilateral (Acute) Acute swimmer's ear of right side (Acute) Ear pain, right (Acute) Shortness of breath (Acute) S/P cardiac cath (Acute) 02/14/19 [facility] [place]-[facility]G-kb Mitral regurgitation (Chronic) Hyperlipidemia (Acute) Systolic dysfunction (Acute) Diaphoresis (Acute) Fracture of distal fibula (Acute) 03/18/18 (L) [facility] 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) Rhytides (Acute 05/31/16) Pancolonic diverticulosis (Acute 07/14/16) Obesity (Acute) Malignant neoplasm of female breast (Acute 02/17/93) S/P BILAT MASTECTOMY [employer] IMPLANTS right mastectomy; 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 Baker- GERD Family History Mother , AGE 72 Depression Father , AGE 87 Diabetes Heart disease Sister Stroke Brother Diabetes Essential hypertension Heart disease s/p CABG Hypercholesteremia Skin cancer COPD (chronic obstructive pulmonary disease) Maternal Grandfather , AGE 64 Heart disease Cancer Paternal Grandfather , age 64 Heart disease Maternal Grandmother , AGE 62 Uterine cancer Paternal Grandmother , CHILDBIRTH at age 19. No problems noted. Daughter Medulloblastoma Hyperlipidemia Maternal Aunt Breast cancer Nephew ALS (amyotrophic lateral sclerosis) Social History Smoking/Tobacco Use Status: Never Second Hand Exposure: No Smoking risk assessment performed?: Yes Alcohol Intake: current Alcohol Intake frequency: holidays/special occasions only Alcohol type: wine Drug use: Never Substance use type: does not use Caregiver/Support person: No Household members: spouse and children Communication Needs: None Do you need help understanding health information?: Rarely Pets and animals: Yes Pets and animals: cat(s) Sexually active: No Do you think of yourself as: straight/heterosexual Current gender identity: female What is your relationship status?: How often do you talk on the phone with friends or family?: twice per week How often do you get together with friends or relatives?: once per week How often do you attend denominational or zoroastrian services?: 1-3 times per year Do you belong to any clubs or organized social groups?: no Panel score (0-1 are the most socially isolated patients): 2 What type of physical activity do you participate in: none Antonia/Hoahaoism: Sabianist Special antonia needs: No Seatbelt use: always Drive intox or ride w/intox mobile lounge driver or operator: No Do you feel safe in your relationship?: Yes Exam Narrative Exam Narrative: 1.Const: Well-nourished, Well-developed, appearing stated age 2.Eyes: PERRL, no conjunctival injection, and symmetrical lids. 3.ENT: Atraumatic external nose and ears. Moist MM. Neck: Symmetric, trachea midline, No thyromegaly. There is no evidence of raccoon eyes, henry sign, CSF rhinorrhea, mastoid tenderness, cranial crepitus, hemotympanum, exophthalmos, or hyphema. 4.CVS: +S1/S2, No murmurs or gallops. Peripheral pulses 2+ and equal in all extremities. Brisk capillary refill in all extremities. 5.RESP: Unlabored respiratory effort. Clear to auscultation bilaterally. No wheezes rales or rhonchi 6.GI: Soft, Nontender/Nondistended, No hepatosplenomegaly. No guarding or rebound. 7.MSK: Normocephalic/Atraumatic, Extremities w/o deformity or ttp No cyanosis or clubbing, Normal movement of all extremities 8.Skin: Warm, Dry. No rashes or lesions. 9.Neuro: wood repatcher II-XII grossly intact. Sensation grossly intact, no focal neurologic deficits. All 6 cardinal planes of vision are fully intact. No evidence of rotatory or vertical nystagmus. The patient demonstrated a normal [id number], good dexterity. There was no evidence of dysdiadochokinesia. Patient was able to ambulate without difficulty. There was no wide-based gait. Romberg testing was normal. [id number]-gw-[id number] testing was normal. Sensation was intact bilaterally as well as muscle strength bilaterally for all extremities. Patient was able to verbalize butter cup with no slurring, or miss pronunciation. Hints exam demonstrates notable worsening of symptoms with head impulse test to the right. Patient does have mild right-sided fatigable unidirectional horizontal nystagmus. Symptoms are slightly worsened with head impulse test to the left though. Patient ambulates with minimal assistance, and shows no wide-based gait. 10.Psych: (AAO) x3. Appropriate mood and affect
[2021-04-06] MEDS: Meclizine 25 MG TAB PO (17:44)
[2021-04-06] MEDS: Normal Saline 500 ML IV (17:44)
[2021-04-06 17:53] LABS: Abs Immature Grans 0.03 10^3/uL (0.0-0.06); Absolute Basophil Count 0.05 10^3/uL (0.0-0.2); Absolute Eosinophil Count 0.04 10^3/uL (0.0-0.7); Absolute Lymphocyte Count 1.11 10^3/uL (1.2-3.4); Absolute Monocyte Count 0.77 10^3/uL (0.1-0.8); Absolute Neutrophil Count 6.96 10^3/uL (1.2-6.7); Basophils % 0.6; Eosinophils % 0.4; HCT 34.9 % (36.0-46.0); HGB 11.9 g/dL (11.2-15.7); Immature Grans % 0.3; Lymphocytes % 12.4; MCH 29.1 pg (27.0-33.0); MCHC 34.1 % (32.0-36.0); MCV 85.3 fL (80-95); MPV 9.6 fL (8.0-11.0); Monocytes % 8.6; Neutrophils % 77.7; Nucleated RBC 0 %; Platelet Count 226 10^3/uL (130-400); RBC 4.09 10^6/uL (3.93-5.22); RDW 12.6 % (11.7-14.6); RDW-SD 38.8 fL; WBC 8.96 10^3/uL (4.4-10.8)
[2021-04-06 18:15] LABS: ALT 23 U/L (14-59); AST 24 U/L (15-37); Albumin 3.8 g/dL (3.4-5.0); Alkaline Phosphatase 71 U/L (46-116); Anion Gap 14.5 mmol/L (3-11); BUN 24 mg/dL (7-18); Bilirubin, Total 0.8 mg/dL (0.2-1.0); CO2 24.5 mmol/L (21.0-32.0); CREATININE 1.2 mg/dL (0.55-1.02); Calcium 8.5 mg/dL (8.5-10.1); Chloride 98 mmol/L (98-107); Estimated GFR 43.68 (mL/min/1.73m2); Glucose 185 mg/dL (74-106); Sodium 137 mmol/L (136-145); TSH (W/Ref FT4) 4.12 uIU/mL (0.36-3.74); Troponin I < 50 ng/L (<or=60)
[2021-04-06 18:34] LABS: FREE T4 1.02 ng/dL (0.76-1.46)
[2021-04-06 18:36] LABS: Bilirubin Negative (Negative); Blood Trace-intact (Negative); Clarity Clear (Clear); Glucose Negative (Negative); Ketones 40 mg/dL (Negative); Leukocyte Esterase Trace (Negative); Nitrite Negative (Negative); Urobilinogen 0.2 EU/dL (Up TO 0.2); pH 7.5 (5-8)
[2021-04-06 18:52] LABS: Bacteria Negative HPF (Negative); C & S Indicated? Yes; Casts 0-2 Fine Granular LPF (Negative); Crystals Negative HPF (Negative); Epithelial Cells Rare HPF (Negative); Mucus Negative (Negative); RBC Negative HPF (0-2); WBC 0-2 HPF (0-5)
[2021-04-06] MEDS: Omnipaque 350 MG/ML 100 ML BTL 85 ML IJ (19:07)
--- NOTE | 2021-04-06 19:36 | DI.VRAD_ITS ---
PROCEDURE INFORMATION: Exam: CT Angiography Head Without And With Contrast, Arteriography Exam date and time: 04/06/2021 5:28 PM Age: 76 years old Clinical indication: Other: Dizzy, syncope, eval for stroke TECHNIQUE: Imaging protocol: Computed tomographic angiography of the head without and with contrast. Exam focused on the arteries. 3D rendering (Not supervised by radiologist): MIP and/or 3D reconstructed images were created by the technologist. Radiation optimization: All CT scans at this facility use at least one of these dose optimization techniques: automated exposure control; mA and/or kV adjustment per patient size (includes targeted exams where dose is matched to clinical indication); or iterative reconstruction. Contrast material: OMNIPAQUE 350; Contrast volume: 85 ml; Contrast route: INTRAVENOUS (IV); COMPARISON: No relevant prior studies available. FINDINGS: ANTERIOR CIRCULATION: Right internal carotid artery: Intracranial segment is patent with no significant stenosis or occlusion. No aneurysm. Right middle cerebral artery: No occlusion or significant stenosis. No aneurysm. Right anterior cerebral artery: No occlusion or significant stenosis. No aneurysm. Left internal carotid artery: Intracranial segment is patent with no significant stenosis. No aneurysm. Left middle cerebral artery: No occlusion or significant stenosis. No aneurysm. Left anterior cerebral artery: No occlusion or significant stenosis. No aneurysm. POSTERIOR CIRCULATION: Right vertebral artery: No occlusion or significant stenosis. No aneurysm. Left vertebral artery: No occlusion or significant stenosis. No aneurysm. Basilar artery: No occlusion or significant stenosis. No aneurysm. Right posterior cerebral artery: No occlusion or significant stenosis. No aneurysm. Left posterior cerebral artery: No occlusion or significant stenosis. No aneurysm. HEAD: Brain: Unremarkable. No acute intracranial hemorrhage. No significant white matter disease. No edema. Cerebral ventricles: Normal. No ventriculomegaly. Bones/joints: Unremarkable. No acute fracture. Paranasal sinuses: Visualized sinuses are normal. No fluid levels. Mastoid air cells: Visualized mastoids are normal. No mastoid effusion. Soft tissues: Unremarkable. IMPRESSION: No large vessel occlusion. Unremarkable CT head. PROCEDURE INFORMATION: Exam: CT Angiography Neck Without And With Contrast Exam date and time: 04/06/2021 5:28 PM Age: 76 years old Clinical indication: Other: Dizzy, syncope, eval for stroke TECHNIQUE: Imaging protocol: Computed tomographic angiography of the neck without and with contrast. 3D rendering (Not supervised by radiologist): MIP and/or 3D reconstructed images were created by the technologist. Radiation optimization: All CT scans at this facility use at least one of these dose optimization techniques: automated exposure control; mA and/or kV adjustment per patient size (includes targeted exams where dose is matched to clinical indication); or iterative reconstruction. Contrast material: OMNIPAQUE 350; Contrast volume: 85 ml; Contrast route: INTRAVENOUS (IV); COMPARISON: No relevant prior studies available. FINDINGS: Right common carotid artery: No stenosis. No dissection or occlusion. Right internal carotid artery: No stenosis of the extracranial segment. No dissection or occlusion. Right external carotid artery: No occlusion or stenosis of the origin. Left common carotid artery: No stenosis. No dissection or occlusion. Left internal carotid artery: No stenosis of the extracranial segment. No dissection or occlusion. Left external carotid artery: No occlusion or stenosis of the origin. Right vertebral artery: No stenosis. No dissection or occlusion. Left vertebral artery: No stenosis. No dissection or occlusion. Soft tissues: Normal. No significant soft tissue swelling. Bones/joints: No acute fracture. Moderate-severe multilevel facet arthropathy. Degenerative disc changes are comparatively mild. IMPRESSION: No stenosis or occlusion. REFERENCES: NASCET CRITERIA. The degree of internal carotid artery stenosis is based on NASCET criteria. Normal is no stenosis. Mild is less than 50% stenosis. Moderate is 50-69% stenosis. Severe is 70% to 99% stenosis. Total occlusion is no detectable patent lumen. Dictated and Authenticated by: Iván Singh MD. Ordering:HONG Glez MD
[2021-04-06] MEDS: POTASSIUM CHLORIDE 10 MEQ/100 ML BAG 100 MEQ IVPB (19:54)
[2021-04-06] MEDS: Potassium Chloride 20 MEQ TABCR 40 MEQ PO (19:55)
--- NOTE | 2021-04-06 20:00 | RT.EKG_ITS ---
APPROVED REPORT Exam: Resting ECG Reason for Exam: dizzy Patient Location: E HR:57 bpm ECG Measurements Heart Rate 57 AXIS LA 233 P 43 QRSd 155 QRS -64 QT 508 T 134 QTc 497 Conclusion Sinus bradycardia...rate< 60 Prolonged LA interval...LA >220, V-rate 50- 90 RBBB and LAFB...QRSd >120mS, axis(-40,240) LVH with secondary repolarization abnormality...multi-LVH criteria, abnrm ST-T Physician: no stemi, unchanged
[2021-04-06 21:20] LABS: Troponin I < 50 ng/L (<or=60)
== END 2021-04-06 22:13 | disposition home or self-care (01) ==
PROVIDERS: Emergency Provider Student in an Organized Health Care Education/Training Program; PCP Family Medicine
DX: H81.391 Other peripheral vertigo, right ear (principal); E87.6 Hypokalemia; R11.2 Nausea with vomiting, unspecified; E86.0 Dehydration; E11.9 Type 2 diabetes mellitus without complications
CPT/HCPCS: 36415; 70496; 70498; 80053; 93005; 96361; 96365; 99285; 81003; 81015; 84439; 84443; 84484; 85025; 87086; 93010; 99284; J3480; J3490

== ENCOUNTER 2021-04-17 04:38 | Outpatient (CLI) | payer BC, SELFPAY ==
[2021-04-17 17:16] LABS: BUN 25 mg/dL (7-18); CREATININE 1.1 mg/dL (0.55-1.02); Estimated GFR 48.29 (mL/min/1.73m2); Potassium 3.1 mmol/L (3.5-5.1)
== END 2021-04-17 04:39 | disposition home or self-care (01) ==
LOC: LBO 04:38
PROVIDERS: PCP Family Medicine; Visit Provider Family Medicine
DX: I10 Essential (primary) hypertension (principal); N28.9 Disorder of kidney and ureter, unspecified
CPT/HCPCS: 36415; 84520; 82565; 84132

== ENCOUNTER 2021-04-21 00:09 | Outpatient (CLI) | payer BC, SELFPAY ==
--- NOTE | 2021-04-21 07:39 | DI.US_ITS ---
APPROVED REPORT EXAM: Comprehensive 2D, Doppler, and color-flow Echocardiogram Patient Location: Out-Patient Combat Systems Officer: Brisa Vogt RDCS (AE) Indications: SOB, Mitral regurgitation Other Information Study Quality: Fair. Technically limited study due to body habitus. Conclusion Normal left ventricular wall thickness and chamber size. Left ventricular systolic function is mildl y reduced, EF 45 to 50%. There is mild global hypokinesis Normal right ventricular size and systolic function Both atria are normal in size Aortic valve is sclerotic and trileaflet without stenosis or regurgitation Mild mitral annular calcification. Moderate mitral regurgitation Normal tricuspid valve with trace regurgitation. Estimated right ventricular systolic pressure is no rmal at 24 mmHg Mildly dilated ascending aorta, 3.56 cm Wall motion Left Ventricle The left ventricle is normal size. Left ventricular systolic function is mildly decreased. There is n ormal left ventricular wall thickness. There is mild global hypokinesis of the left ventricle. There is no ventricular septal defect visualized. LVEF is 45-50%. Right Ventricle The right ventricle is normal size. The right ventricular systolic function is normal. The RVSP is 24 .6mmHg. Atria The left atrium size is normal. The right atrium size is normal. The interatrial septum is intact wit h no evidence for an atrial septal defect. Aortic Valve The Aortic valve is sclerotic. Aortic valve is trileaflet. There is no aortic valvular stenosis. No a ortic regurgitation is present. Mitral Valve Mild mitral annular calcification. No evidence of mitral valve stenosis. Moderate mitral regurgitatio n. Tricuspid Valve The tricuspid valve is normal in structure. There is no tricuspid valve stenosis. Trace tricuspid reg urgitation. Pulmonic Valve Pulmonic valve is not well visualized. There is no pulmonic valvular stenosis. There is no pulmonic v alvular regurgitation. Great Vessels The aortic root is normal in size. The ascending aorta is mildly dilated. IVC is normal in size and c ollapses >50% with inspiration. Pericardium There is no pericardial effusion. 2D Dimensions IVSD d PLAX 1.01 cm F: 0.6-1.0 LV Vol A2C d MOD 90.1 mL LVPW d PLAX 1.00 cm F: 0.6 - 1.0 LV Vol A4C d MOD 124.4 mL LVID d PLAX 5.19 cm F: 3.8 - 5.2 LA vol/ BSA A2C s A-L 25.6 mL/m2 LVDs 3.90 cm F: 2.2 - 3.5 LA vol/ BSA A4C s A-L 17.0 mL/m2 Ao Root d 2.77 cm F: 2.7 - 3.3 LA Vol/ BSA Biplane s A-L 22.6 mL/m2 RA Area A4C 18.89 cm2 LA Area A4C s MOD 12.91 cm2 RA Vol/ BSA A4C s A-L 29.3 mL/m2 LA Area A2C s MOD 17.17 cm2 Ao Asc Diam d 3.56 cm F: 2.3 - 3.1 LV EF A4C MOD 45.4 % LV EF Teichholz 48.1 % LV EF A2C MOD 45.6 % LVEF (Hull's) 44.42 % F: 54 - 74 LV EF Biplane MOD 44.4 % LV Volume 80.97 mL F: 46 - 106 SV 47.35 mL LV Volume Index 42.17 mL/m2 F: 29 - 61 SV Index 24.58 mL/m2 LV Vol Biplane MOD 106.6 mL FS 24.35 % M-Mode TAPSE 2.49 cm (M/F) >1.7 LV Diastology MV E' medial 0.061 (>0.07 m/s) E/A Ratio 0.6 LV E/e MED 12.90 (<14) MV E Vmax 0.78 (0.4-1.3 m/s) MV E' lateral 0.103 (>0.1 m/s) MV A Vmax 1.20 (0.4-1.3 m/s) LV E/e LAT 7.60 (<14) MV E/A Ratio 0.65 MV E/E' medial 12.90 MV E/E' lateral 7.62 Aortic Valve LVOT Area 3.10 cm2 AoV Area Vmax 2.47 cm2 LVOT Vmax 1.00 m/s AoV Area/ BSA (Vmax) 1.28 cm2/m2 LVOT Mean Laz. 0.68 m/s MARIBETH Mean Laz. 2.25 cm2 LVOT Peak Grad 4.0 mmHg MARIBETH Mean Laz. Index 1.17 cm2/m2 LVOT Mean Grad 2.1 mmHg LVOT VTI 0.251 m LVOT Diam s 1.95 cm AoV Vmax 1.26 m/s Velocity Ratio 0.79 AoV Mean Laz. 0.94 m/s AoV Peak Grad 6.3 mmHg LVOT SV 77.87 mL AoV Mean Grad 3.8 mmHg AoV VTI 0.316 m AoV Area VTI 2.46 cm2 AoV Area/ BSA (VTI) 1.28 cm/m2 Mitral Valve MV DT 208 (160-240 msec) MR Vmax 5.33 m/s MV PHT 60 msec MR VTI 2.387 m MV Area PHT 3.64 cm2 MR Peak Grad 113.6 mmHg MV VTI 0.408 m MR Mean Grad 79.4 mmHg MV VTI Annulus 0.411 m MR PISA Radius 0.60 cm MV Area VTI 1.93 (4.0-6.0 cm2) MR EROA 0.15 cm2 MR Aliasing Velocity 0.35 m/s MR PISA 2.26 cm2 Pulmonary Valve PV Vmax 0.80 (0.5-1.5 m/s) RVOT Peak Gr. 0.88 mmHg PV Peak Grad 2.6 mmHg RVOT Mean Gr. 0.45 mmHg PV Mean Grad 1.6 mmHg RVOT VTI 0.127 m PV VTI 0.226 m RVOT Vmax 0.47 m/s Tricuspid Valve TR Peak Grad 21.5 mmHg TR Vmax 2.32 m/s RA Pressure 3.00 mmHg RVSP (TR) 24.6 mmHg
== END 2021-04-21 00:29 ==
PROVIDERS: PCP Family Medicine; Visit Provider Internal Medicine Cardiovascular Disease
DX: I34.0 Nonrheumatic mitral (valve) insufficiency (principal)
CPT/HCPCS: 93306

== ENCOUNTER 2021-05-04 01:50 | Outpatient (CLI) | payer BC, SELFPAY ==
[2021-05-04 16:26] LABS: Potassium 3.5 mmol/L (3.5-5.1)
== END 2021-05-04 01:51 | disposition home or self-care (01) ==
LOC: LBO 01:53
PROVIDERS: PCP Family Medicine; Visit Provider Family Medicine
DX: I10 Essential (primary) hypertension (principal)
CPT/HCPCS: 36415; 84132

== ENCOUNTER 2021-06-12 04:02 | Outpatient (RCR) | payer BC, SELFPAY ==
--- NOTE | 2021-06-12 09:00 | HOLTER_ITS ---
APPROVED REPORT Conclusion This is a 48-hour Holter monitor ordered for syncope Predominant rhythm was sinus. Average heart rate was 66. Minimum was 52, maximum 117 There were very rare isolated atrial and ventricular ectopic beats There was no atrial fibrillation, no high-grade AV block, no pauses greater than 3 seconds Patient symptoms did not correspond to any dysrhythmia
== END 2021-06-18 23:59 | disposition home or self-care (01) ==
LOC: RT 04:02
PROVIDERS: PCP Family Medicine; Visit Provider Family Medicine
DX: R55 Syncope and collapse (principal)
CPT/HCPCS: 93225; 93226

== ENCOUNTER 2021-06-16 03:13 | Outpatient (CLI) | payer BC, SELFPAY ==
[2021-06-16 16:53] LABS: Abs Immature Grans 0.03 10^3/uL (0.0-0.06); Absolute Basophil Count 0.07 10^3/uL (0.0-0.2); Absolute Eosinophil Count 0.12 10^3/uL (0.0-0.7); Absolute Lymphocyte Count 1.92 10^3/uL (1.2-3.4); Absolute Monocyte Count 0.65 10^3/uL (0.1-0.8); Basophils % 1.1; Eosinophils % 1.8; HCT 37.5 % (36.0-46.0); HGB 11.9 g/dL (11.2-15.7); Immature Grans % 0.5; Lymphocytes % 29.6; MCH 28.8 pg (27.0-33.0); MCHC 31.7 % (32.0-36.0); MCV 90.8 fL (80-95); MPV 9.4 fL (8.0-11.0); Nucleated RBC 0 %; Platelet Count 201 10^3/uL (130-400); RBC 4.13 10^6/uL (3.93-5.22); RDW-SD 42.9 fL; WBC 6.49 10^3/uL (4.4-10.8)
[2021-06-16 19:28] LABS: ALT 19 U/L (14-59); AST 17 U/L (15-37); Alkaline Phosphatase 62 U/L (46-116); Anion Gap 5.6 mmol/L (3-11); BUN 22 mg/dL (7-18); Bilirubin, Total 0.9 mg/dL (0.2-1.0); CO2 29.4 mmol/L (21.0-32.0); Calcium 8.5 mg/dL (8.5-10.1); Chloride 107 mmol/L (98-107); Estimated GFR 53.91 (mL/min/1.73m2); Glucose 83 mg/dL (74-106); Potassium 4.1 mmol/L (3.5-5.1); Sodium 142 mmol/L (136-145); TSH (W/Ref FT4) 2.56 uIU/mL (0.36-3.74); Total Protein 6.9 g/dL (6.4-8.2); Vitamin B12 373 pg/mL (193-986)
== END 2021-06-16 03:14 | disposition home or self-care (01) ==
LOC: LBO 03:13
PROVIDERS: PCP Family Medicine; Visit Provider Family Medicine
DX: D64.9 Anemia, unspecified (principal); E03.9 Hypothyroidism, unspecified; R55 Syncope and collapse
CPT/HCPCS: 36415; 80053; 82607; 84443; 85025

== ENCOUNTER 2021-09-17 16:21 | Emergency (ER) | payer BC, SELFPAY ==
[2021-09-17 16:25] VITALS: BP 151/62; PULSE 68; RESP 16; TEMP 36.9; O2SAT 98
--- NOTE | 2021-09-17 16:30 | DI.RAD_ITS ---
Exam(s) XR WRIST LT COMPLETE EXAM: XR WRIST LT COMPLETE CLINICAL HISTORY: distal radius pain after fall. TECHNIQUE: 2D digital imaging was performed. COMPARISON: No exams were available for comparison FINDINGS: 3 views There fractures the distal radius and ulnar styloid. The oblique mildly impacted fracture at the dis gabi radius violates the radiocarpal joint without a prominent step. The ulnar styloid is fractured a t its base and exhibits some displacement. There is no obvious scaphoid fracture. Scapholunate dist ance normal. No radiopaque foreign body. IMPRESSION: DATA REPOSITORY: RADIATION DOSE DELIVERED:
--- NOTE | 2021-09-17 16:36 | W.ED.GENAD ---
Discharge Plan Disposition Patient Disposition: HOME Condition: Improving Discharge Details Clinical Impression: Closed fracture of distal ends of left radius and ulna Primary Care Provider: Wesly Ren ED Provider: Kenan Tripathi Home Meds and New Rx's Prescriptions: Continued (DME) blood sugar diagnostic Strip 1 strip Miscellaneous BID Qty: 200 4RF Rx Instructions: test twice/day potassium chloride 10 mEq capsule, extended release 10 meq PO BID Qty: 90 5RF hyoscyamine sulfate 0.125 mg tablet 0.125 mg PO BID-QID PRN mometasone 0.1 % cream 1 applic topical DAILY psyllium husk [Metamucil] 0.4 gram capsule 0.4 g PO DAILY metformin 500 mg tablet 250 - 500 mg PO BID Qty: 135 3RF trazodone 100 mg tablet 100 mg PO DAILY Qty: 90 3RF triamcinolone acetonide 0.1 % cream 1 applic Topical BID PRN (Reason: ankle rash) Qty: 15 2RF Rx Instructions: Apply to ankle for itchy spot (DME) FreeStyle Precision Vlad Strips Strip See Rx Instructions .ROUTE .MEDSUPPLY Qty: 200 3RF Rx Instructions: test twice/day Shingrix (PF) 50 mcg/0.5 mL suspension for reconstitution 0.5 ml IM ONCE Qty: 1 1RF Rx Instructions: as a single dose pravastatin 40 mg tablet 40 mg PO HS Qty: 90 4RF Rx Instructions: 1 TAB DAILY glipizide 5 mg tablet 2.5 mg PO DAILY Qty: 90 4RF Rx Instructions: dose reduction 07/23/21 escitalopram oxalate 20 mg tablet 20 mg PO DAILY Qty: 90 3RF famotidine 20 mg tablet 20 mg PO BID PRNQty: 60 (DME) blood-glucose meter [Contour Next Glucose Meter] Kit See Rx Instructions .ROUTE .MEDSUPPLY Qty: 1 0RF Rx Instructions: As directed (DME) Contour Next Test Strips Strip See Rx Instructions .ROUTE .MEDSUPPLY Qty: 200 3RF Rx Instructions: test twice/day (DME) lancets [CareTouch Safety Lancets] 28 gauge misc See Rx Instructions .ROUTE .MEDSUPPLY Qty: 200 3RF Rx Instructions: test twice/day ibuprofen 200 MG tablet 400 mg PO DAILY PRN PRN meclizine 25 mg tablet 25 mg PO TID Qty: 20 0RF Discharge Instructions Instructions: Wrist Fracture in Adults (ED) Additional Instructions: Elevate the wrist above the level of the heart to reduce pain and swelling. Please follow-up with Dr. Bennett in orthopedics as discussed with him. The office #[phone]. Return if you develop increasing pain, cold/blue/numbness of the fingertips, or any other acute concerns. May continue Tylenol as needed for pain. May use sling as needed for comfort Medical Decision Making 76-year-old female was working in her garden, slipped and fell backwards on outstretched left hand. She felt immediate pain in that area. Did hit her head on the ground but denies headache or loss of consciousness. He placed ice and presented to the ER. On exam she has pain and tenderness over the left distal radius. Must exclude underlying bony injury and patient referred for x-ray which reveals distal radius fracture with dorsal angulation and ulnar styloid fracture. Case discussed with, and patient seen in consultation by Dr. Bennett. Dr. Bennett performed bedside closed reduction of the patient's displaced fracture. She is stable and improved. HPI General Mode of arrival: ambulatory. Date/Time Provider Initiated Documentation: 09/17/21 16:21. Limitations to Documentation: no limitations. Information obtained by: patient. History of Present Illness 76 year old F presents to the emergency department with the chief complaint of Left wrist pain after fall in the garden, described as moderate, Quality is described as dull and constant, and is localized to the left and upper extremity. Patient reports no radiation. Patient started experiencing this minute(s) and it has been constant. Movement worsens symptoms . Patient notes no other symptoms.. Patient did receive the following treatments prior to arrival, cold therapy Related Data Home Medications Medication Instructions Recorded Confirmed ibuprofen 200 mg tablet 400 mg PO DAILY PRN PRN 05/29/13 09/17/21 famotidine 20 mg tablet 20 mg PO BID PRN #60 tab-caps 01/19/19 09/17/21 blood sugar diagnostic #200 strips 04/18/19 09/17/21 hyoscyamine sulfate 0.125 mg tablet 0.125 mg PO BID-QID PRN 01/08/20 09/17/21 blood sugar diagnostic (OlegStyle #200 ea 11/12/20 09/17/21 Precision Vlad Strips) metformin 500 mg tablet 250 - 500 mg PO BID #135 tab-caps 11/12/20 09/17/21 mometasone 0.1 % topical cream 1 applic topical DAILY 11/12/20 09/17/21 psyllium husk 0.4 gram capsule 0.4 g PO DAILY 11/12/20 09/17/21 (Metamucil) trazodone 100 mg tablet 100 mg PO DAILY #90 tabs 11/12/20 09/17/21 triamcinolone acetonide 0.1 % 1 applic topical BID PRN ankle 11/12/20 09/17/21 topical cream rash #15 grams varicella-zoster glycoE [id number] 0.5 ml IM ONCE #1 ea 11/12/20 09/17/21 adj(PF) 50 mcg/0.5 mL IM susp, kit (Shingrix (PF)) blood sugar diagnostic (Contour #200 ea 12/16/20 09/17/21 Next Test Strips) blood-glucose meter (Contour Next #1 ea 12/16/20 09/17/21 Glucose Meter kit) lancets 28 gauge (CareTouch Safety #200 ea 12/16/20 09/17/21 Lancets) pravastatin 40 mg tablet 40 mg PO HS #90 tab-caps 02/03/21 09/17/21 meclizine 25 mg tablet 25 mg PO TID #20 tabs 04/06/21 09/17/21 potassium chloride 10 mEq 10 meq PO BID #90 caps 05/12/21 09/17/21 capsule,extended release escitalopram oxalate 20 mg tablet 20 mg PO DAILY #90 tabs 07/23/21 09/17/21 glipizide 5 mg tablet 2.5 mg PO DAILY #90 tab-caps 07/23/21 09/17/21 Previous Rx's Medication Instructions Recorded blood sugar diagnostic #200 strips 04/18/19 blood sugar diagnostic (FreeStyle #200 ea 11/12/20 Precision Vlad Strips) metformin 500 mg tablet 250 - 500 mg PO BID #135 tab-caps 11/12/20 trazodone 100 mg tablet 100 mg PO DAILY #90 tabs 11/12/20 triamcinolone acetonide 0.1 % 1 applic topical BID PRN ankle 11/12/20 topical cream rash #15 grams varicella-zoster glycoE [id number] 0.5 ml IM ONCE #1 ea 11/12/20 adj(PF) 50 mcg/0.5 mL IM susp, kit (Shingrix (PF)) blood sugar diagnostic (Contour #200 ea 12/16/20 Next Test Strips) blood-glucose meter (Contour Next #1 ea 12/16/20 Glucose Meter kit) lancets 28 gauge (CareTouch Safety #200 ea 12/16/20 Lancets) pravastatin 40 mg tablet 40 mg PO HS #90 tab-caps 02/03/21 meclizine 25 mg tablet 25 mg PO TID #20 tabs 04/06/21 potassium chloride 10 mEq 10 meq PO BID #90 caps 05/12/21 capsule,extended release escitalopram oxalate 20 mg tablet 20 mg PO DAILY #90 tabs 07/23/21 glipizide 5 mg tablet 2.5 mg PO DAILY #90 tab-caps 07/23/21 Allergies Allergy/AdvReac Type Severity Reaction Status Date / Time Sulfa (Sulfonamide Allergy Mild swelling Verified 09/17/21 16:30 Antibiotics) to bottom lip morphine AdvReac Severe GI UPSET Verified 09/17/21 16:30 tetracycline AdvReac Unknown GI UPSET Verified 09/17/21 16:30 lisinopril AdvReac cough Verified 09/17/21 16:30 General Stated Complaint: Orthopedic JESSICA: 4 Review of Systems Narrative: Denies headache or loss of consciousness. No neck or back pain. No numbness or weakness. 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 (Acute) Otitis externa in other diseases classified elsewhere, bilateral (Acute) Acute swimmer's ear of right side (Acute) Ear pain, right (Acute) Shortness of breath (Acute) S/P cardiac cath (Acute) 02/14/19 [facility] [place]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 Mitral regurgitation (Chronic) Hyperlipidemia (Acute) Systolic dysfunction (Acute) Diaphoresis (Acute) Fracture of distal fibula (Acute) 03/18/18 (L) [facility] 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) Rhytides (Acute 05/31/16) Pancolonic diverticulosis (Acute 07/14/16) Obesity (Acute) Malignant neoplasm of female breast (Acute 02/17/93) S/P BILAT MASTECTOMY AND IMPLANTS right mastectomy; 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 Baker- GERD Family History Mother , AGE 72 Depression Father , AGE 87 Diabetes Heart disease Sister Stroke Brother Diabetes Essential hypertension Heart disease s/p CABG Hypercholesteremia Skin cancer COPD (chronic obstructive pulmonary disease) Maternal Grandfather , AGE 64 Heart disease Cancer Paternal Grandfather , age 64 Heart disease Maternal Grandmother , AGE 62 Uterine cancer Paternal Grandmother , CHILDBIRTH at age 19. No problems noted. 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 who is total care) Details: daughter is diasabled from childhood due to brain cancer, stroke 07/07 Household members: spouse and children Communication Needs: None Do you need help understanding health information?: Rarely Pets and animals: Yes Pets and animals: cat(s) Sexually active: No Do you think of yourself as: straight/heterosexual Current gender identity: female What is your relationship status?: How often do you talk on the phone with friends or family?: twice per week How often do you get together with friends or relatives?: once per week How often do you attend caodaism or shinto services?: 1-3 times per year Do you belong to any clubs or organized social groups?: no Panel score (0-1 are the most socially isolated patients): 2 What type of physical activity do you participate in: none Antonia/Nondenominational: Jainism Special antonia needs: No Seatbelt use: always Drive intox or ride w/intox 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 Pleasant, well groomed, interactive. HEAD: Normocephalic, atraumatic ENT: Mucous membranes moist, oropharynx unremarkable, External ear exam unremarkable EYES: PERRL, EOMI NECK: Full ROM, no JB, no menigismus CHEST/RESP: Nontender, no respiratory distress EXT: Left distal radius swelling and tenderness to palpation. Patient demonstrates normal distal motor and sensory function. 2+ radial pulse bilaterally Neuro: Grossly normal neurologic exam, conversant, interactive. Psych: Speech fluent, thoughts congruent, affect normal Course Vital Signs Vital signs: Vital Signs Temperature 36.9 C 09/17/21 16:25 Pulse 68 09/17/21 16:25 Respiratory Rate 16 09/17/21 16:25 Blood Pressure 151/62 H 09/17/21 16:25 Pulse Oximetry 98 09/17/21 16:25 Temperature 36.9 C 09/17/21 16:25 Temperature Source Temporal Artery Scan 09/17/21 16:25 Pulse 68 09/17/21 16:25 Respiratory Rate 16 09/17/21 16:25 Respiratory Effort 09/17/21 16:25 Blood Pressure 151/62 H 09/17/21 16:25 Blood Pressure Position Sitting 09/17/21 16:25 Pulse Oximetry 98 09/17/21 16:25 Oxygen Delivery Method Room Air 09/17/21 16:25 Oxygen Flow Rate 0 09/17/21 16:25 Pain Level 8 09/17/21 16:32
[2021-09-17] MEDS: Acetaminophen 325 MG TAB 650 MG PO (16:42)
--- NOTE | 2021-09-17 17:15 | DI.RAD_ITS ---
Exam(s) XR WRIST LT LIMITED EXAM: XR WRIST LT LIMITED CLINICAL HISTORY: ap/lat post reduction. TECHNIQUE: 2D digital imaging was performed. COMPARISON: CR,XR XR WRIST LT COMPLETE from 09/17/2021 FINDINGS: Two views These in splint views reveal improved alignment of the ulnar styloid fracture fragment. The oblique fracture line in the distal radius is again noted to violate the radiocarpal joint surface. No obvio us scaphoid fracture. IMPRESSION: DATA REPOSITORY: RADIATION DOSE DELIVERED:
--- NOTE | 2021-09-17 17:23 | DI.VRAD_ITS ---
PROCEDURE INFORMATION: Exam: XR Left Wrist Exam date and time: 09/17/2021 4:49 PM Age: 76 years old Clinical indication: Injury or trauma; Fall; Fracture, traumatic injury; Closed fracture; Wrist; Left TECHNIQUE: Imaging protocol: Radiologic exam of the Left wrist. Views: 3 or more views. COMPARISON: No relevant prior studies available. FINDINGS: Bones/joints: There is a comminuted impacted fracture through the distal radial metaphysis. There is suggestion of extension into the joint space. There is volar apex angulation at the fracture site. There is a distally displaced fracture of the ulnar styloid process. No evidence of joint dislocation. Prominent osteoarthritic degenerative changes are noted with joint space narrowing and subchondral sclerosis. There is also osteophyte formation. Soft tissues: Soft tissue edema is noted at the level of the fracture. IMPRESSION: 1. Volarly angulated impacted fracture of the distal radial metaphysis with fracture line extending to the joint margin. 2. Displaced fracture of the ulnar styloid process. 3. No evidence of joint dislocation 4. Osteoarthritic degenerative changes as described. Dictated and Authenticated by: Gabriela Jasmine MD. Ordering:THEO Grayson MD
--- NOTE | 2021-09-17 17:43 | W.ORTHOCONSU ---
Date of service: 09/17/21 Time of Service: 17:32 History of Present Illness Narrative: Fall gardening today onto left wrist with sudden onset pain and deformity. Denies any significant numbness or tingling. No pre-existing wrist problems. Active with her hands as well as requires use for caring for her disabled daughter. [id number]. Consult Reason Displaced distal radius fracture left Assessment and Plan Assessment and plan (1) Closed fracture of distal ends of left radius and ulna: Status: Acute Assessment and plan: 76-year-old female with displaced left distal radius and ulnar styloid fractures Discussed treatment options including risks and benefits of closed reduction with manipulation and splinting. Patient preference to proceed with hematoma block rather than sedation. Tolerated procedure well without issue. Given usual precautions including the following: Light use of left hand OK for activities of daily living Recommend elevation to minimize swelling and discomfort. Keep splint clean and dry. Encourage daily range of motion to all fingers and thumb to prevent stiffness. Follow-up with Dr. Bennett at [facility] orthopedics in about 10 days. Office will call the patient tomorrow with an appointment. Review of Systems All systems reviewed & are unremarkable except as noted in HPI and below PFSH All Active Problems Closed fracture of distal ends of left radius and ulna (Acute 09/17/21) Low blood sugar (Acute) Headache (Acute) Syncope (Chronic) Diabetes mellitus (Chronic 09/15/12) labs reviewed Hypertension (Chronic) Adjustment disorder with depressed mood (Acute) Restless leg syndrome (Acute) Chronic eczematous otitis externa of both ears (Acute) 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 (Acute) Otitis externa in other diseases classified elsewhere, bilateral (Acute) Acute swimmer's ear of right side (Acute) Ear pain, right (Acute) Shortness of breath (Acute) S/P cardiac cath (Acute) 02/14/19 [facility] [place] Mitral regurgitation (Chronic) Hyperlipidemia (Acute) Systolic dysfunction (Acute) Diaphoresis (Acute) Fracture of distal fibula (Acute) 03/18/18 (L) [facility] 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) Rhytides (Acute 05/31/16) Pancolonic diverticulosis (Acute 07/14/16) Obesity (Acute) Malignant neoplasm of female breast (Acute 02/17/93) S/P BILAT MASTECTOMY AND IMPLANTS right mastectomy; 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 Baker- GERD Family History Mother , AGE 72 Depression Father , AGE 87 Diabetes Heart disease Sister Stroke Brother Diabetes Essential hypertension Heart disease s/p CABG Hypercholesteremia Skin cancer COPD (chronic obstructive pulmonary disease) Maternal Grandfather , AGE 64 Heart disease Cancer Paternal Grandfather , age 64 Heart disease Maternal Grandmother , AGE 62 Uterine cancer Paternal Grandmother , CHILDBIRTH at age 19. No problems noted. 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) Details: daughter is diasabled from childhood due to brain cancer, stroke 07/07 Household members: spouse and children Communication Needs: None Do you need help understanding health information?: Rarely Pets and animals: Yes Pets and animals: cat(s) Sexually active: No Do you think of yourself as: straight/heterosexual Current gender identity: female What is your relationship status?: How often do you talk on the phone with friends or family?: twice per week How often do you get together with friends or relatives?: once per week How often do you attend sabianist or holiness services?: 1-3 times per year Do you belong to any clubs or organized social groups?: no Panel score (0-1 are the most socially isolated patients): 2 What type of physical activity do you participate in: none Antonia/Spiritism: Judaism Special antonia needs: No Seatbelt use: always Drive intox or ride w/intox wheat 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 No distress. Minimal discomfort or pain at rest. Denies paresthesias numbness or tingling about the hand or fingers. Demonstrates active flexion extension EPL and all fingers and thumb. Localized tenderness over the obvious distal radius fracture site with dorsal deformity and step-off. Skin intact. No significant ecchymosis. Compartments soft. No issues about the remaining hand, digits, or elbow. No other traumatic injuries. Results Last Vital Signs Temp 98.4 F 09/17/21 16:25 Pulse 68 09/17/21 16:25 Resp 16 09/17/21 16:25 BP 151/62 H 09/17/21 16:25 Pulse Ox 98 09/17/21 16:25 Imaging Imaging Studies: Left wrist x-rays show dorsally angulated shortened displaced distal radius and ulnar styloid fractures, probably intra-articular Procedures Orthopedic Fracture Reduction DR stallings: Time out performed: Yes Side: left Fracture reduction location: radius and ulna Analgesia: hematoma block Technique: direct manipulation Post-reduction x-rays demonstrate: acceptable reduction Post-reduction neuro exam: intact Post-reduction vascular exam: intact Splint applied: Yes Patient tolerated procedure: well Additional comments: CPT # 14283
--- NOTE | 2021-09-17 17:54 | DI.VRAD_ITS ---
PROCEDURE INFORMATION: Exam: XR Left Wrist Exam date and time: 09/17/2021 5:37 PM Age: 76 years old Clinical indication: Injury or trauma; Fall; Fracture, traumatic injury; Closed fracture; Wrist; Left; Injury details: Ap/lat post reduction TECHNIQUE: Imaging protocol: Radiologic exam of the Left wrist. Views: 1 or 2 views. COMPARISON: CR XR WRIST LT COMPLETE 09/17/2021 4:49 PM FINDINGS: Bones/joints: The patient is status post reduction and casting of the distal radial and ulnar fractures. There is slight interval improvement of fracture alignment, however there is persistent dorsal displacement of the distal metaphysis. No evidence of new fracture. There is improved alignment of the ulnar styloid process fracture. Soft tissues: Casting material partially obscures the adjacent soft tissues. IMPRESSION: Slight improvement in radial fracture alignment and near normal alignment of the ulnar styloid process fracture. No evidence of new injury. Dictated and Authenticated by: Gabriela Jasmine MD. Ordering:THEO Grayson MD
== END 2021-09-17 17:56 | disposition home or self-care (01) ==
PROVIDERS: Emergency Provider Emergency Medicine; PCP Family Medicine
DX: S52.502A Unspecified fracture of the lower end of left radius, initial encounter for closed fracture (principal); S52.612A Displaced fracture of left ulna styloid process, initial encounter for closed fracture; E11.9 Type 2 diabetes mellitus without complications; Z79.84 Long term (current) use of oral hypoglycemic drugs; W01.198A Fall on same level from slipping, tripping and stumbling with subsequent striking against other object, initial encounter; Y92.89 Other specified places as the place of occurrence of the external cause; Y93.H2 Activity, gardening and landscaping
CPT/HCPCS: 99284; 25605; 73100; 73110; J3490

== ENCOUNTER 2021-09-29 15:24 | Outpatient (CLI) | payer MEDICARE, SELFPAY ==
--- NOTE | 2021-09-29 15:12 | DI.RAD_ITS ---
Exam(s) XR WRIST LT LIMITED EXAM: XR WRIST LT LIMITED CLINICAL HISTORY: LEFT WRIST FX F/U. TECHNIQUE: 2D digital imaging was performed of the left wrist. Two images were obtained. PA and la teral views were obtained. COMPARISON: CR,XR XR WRIST LT LIMITED from 09/17/2021 FINDINGS: BONES: There has been no change in alignment of the impacted distal radial fracture or the displaced ulnar styloid process fracture. No bony destructive lesion is seen. JOINTS: The carpal bones are normally aligned. Moderately severe degenerative changes are seen at the 1st CMC joint. SOFT TISSUE: Normal. IMPRESSION: Stable distal radial and ulnar fractures. DATA REPOSITORY: RADIATION DOSE DELIVERED:
== END 2021-09-29 15:25 | disposition home or self-care (01) ==
LOC: DIORS 15:25
PROVIDERS: PCP Family Medicine; Referring Provider Family Medicine; Visit Provider Student in an Organized Health Care Education/Training Program
DX: S52.502A Unspecified fracture of the lower end of left radius, initial encounter for closed fracture (principal); S52.602A Unspecified fracture of lower end of left ulna, initial encounter for closed fracture; X58.XXXA Exposure to other specified factors, initial encounter
CPT/HCPCS: 73100

== ENCOUNTER 2021-10-27 13:59 | Outpatient (CLI) | payer MEDICARE, SELFPAY ==
--- NOTE | 2021-10-27 11:27 | DI.RAD_ITS ---
Exam(s) XR WRIST LT LIMITED EXAM: XR WRIST LT LIMITED INDICATION: L wrist fx. COMPARISON: CR XR WRIST LT LIMITED from 09/29/2021 TECHNIQUE: 2D digital imaging was performed. Two views. FINDINGS: There is a comminuted intra-articular fracture of the distal radius with dorsal angulation. There brunner s been slight interval increase in size sclerosis when compared with the previous exam. Ulnar styloi d fracture is unchanged. DATA REPOSITORY: RADIATION DOSE DELIVERED:
== END 2021-10-27 14:00 | disposition home or self-care (01) ==
LOC: DIORS 14:00
PROVIDERS: PCP Family Medicine; Referring Provider Family Medicine; Visit Provider Physician Assistant
DX: S52.502A Unspecified fracture of the lower end of left radius, initial encounter for closed fracture (principal); S52.602A Unspecified fracture of lower end of left ulna, initial encounter for closed fracture; X58.XXXA Exposure to other specified factors, initial encounter
CPT/HCPCS: 73100

== ENCOUNTER 2021-12-01 11:20 | Outpatient (CLI) | payer MEDICARE, SELFPAY ==
--- NOTE | 2021-12-01 10:15 | DI.RAD_ITS ---
Exam(s) XR WRIST LT LIMITED EXAM: XR WRIST LT LIMITED INDICATION: LEFT RADIUS AND ULNA FX F/U. COMPARISON: CR,XR XR WRIST LT COMPLETE from 09/17/2021 CR XR WRIST LT LIMITED from 10/27/2021 TECHNIQUE: 2D digital imaging was performed. Two views. FINDINGS: There has been no change in the alignment of the distal radial fracture which shows evidence of incre ased healing compared with the prior exam. No change in ulnar styloid fracture. DATA REPOSITORY: RADIATION DOSE DELIVERED:
== END 2021-12-01 11:21 | disposition home or self-care (01) ==
LOC: DIORS 11:21
PROVIDERS: PCP Family Medicine; Referring Provider Family Medicine; Visit Provider Student in an Organized Health Care Education/Training Program
DX: S52.502A Unspecified fracture of the lower end of left radius, initial encounter for closed fracture (principal); S52.602A Unspecified fracture of lower end of left ulna, initial encounter for closed fracture; X58.XXXA Exposure to other specified factors, initial encounter; E11.9 Type 2 diabetes mellitus without complications
CPT/HCPCS: 99213; 73100

== ENCOUNTER → 2022-03-17 01:33 | Outpatient (CLI) | payer MEDICARE, SELFPAY ==
--- NOTE | 2022-03-17 14:45 | DI.MRI_ITS ---
Exam(s) MR BRAIN WO EXAM: MR BRAIN WO CLINICAL HISTORY: headaches since a fall 5 months ago,r51.9 TECHNIQUE: Multiplanar multisequence MRI of the brain was performed. COMPARISON: CT CT HEAD WO from 07/24/2021 FINDINGS: VENTRICLES AND EXTRA AXIAL SPACES: Normal in size and morphology for the patient's age. MIDLINE SHIFT: None. CEREBRAL PARENCHYMA: No focus of restricted diffusion to suggest acute infarct. No space-occupying le mian identified. HEMORRHAGE: None. BRAINSTEM/CEREBELLUM: Normal. CALVARIUM: Normal. VISUALIZED PARANASAL SINUSES/MASTOIDS:Clear. LITTLE TRAVERSE OF QUARLES: Normal flow void. PITUITARY GLAND: Unremarkable. OTHER FINDINGS: None. IMPRESSION: No evidence of intracranial hemorrhage or acute infarct. DATA REPOSITORY:
== END ==
PROVIDERS: PCP Family Medicine; Visit Provider Family Medicine
DX: R51.9 Headache, unspecified (principal); Z91.81 History of falling
CPT/HCPCS: 70551

== ENCOUNTER → 2022-05-04 08:56 | Outpatient (BNVA) | payer MEDICARE, SELFPAY | PROVIDERS: PCP Family Medicine; Referring Provider Family Medicine; Visit Provider Internal Medicine Cardiovascular Disease | DX: I51.9 Heart disease, unspecified (principal); I34.0 Nonrheumatic mitral (valve) insufficiency; I42.8 Other cardiomyopathies; R06.09 Other forms of dyspnea; E11.9 Type 2 diabetes mellitus without complications | CPT/HCPCS: 99213 ==

== ENCOUNTER 2022-06-07 04:06 | Outpatient (CLI) | payer MEDICARE, SELFPAY ==
[2022-06-07 16:29] LABS: ALT 23 U/L (14-59); AST 16 U/L (15-37); Albumin 3.4 g/dL (3.4-5.0); Alkaline Phosphatase 70 U/L (46-116); Anion Gap 8.6 mmol/L (3-11); BUN 15 mg/dL (7-18); Bilirubin, Total 0.4 mg/dL (0.2-1.0); CO2 30.4 mmol/L (21.0-32.0); CREATININE 1.1 mg/dL (0.55-1.02); Calcium 8.8 mg/dL (8.5-10.1); Chloride 104 mmol/L (98-107); Estimated GFR 51.75 (mL/min/1.73m2); Glucose 140 mg/dL (74-106); Potassium 4.2 mmol/L (3.5-5.1); Sodium 143 mmol/L (136-145); Total Protein 6.6 g/dL (6.4-8.2)
== END 2022-06-07 04:07 | disposition home or self-care (01) ==
PROVIDERS: PCP Family Medicine; Visit Provider Family Medicine
DX: R10.9 Unspecified abdominal pain (principal); E11.9 Type 2 diabetes mellitus without complications
CPT/HCPCS: 36415; 80053

== ENCOUNTER 2022-07-07 18:18 | Inpatient (IN) | payer MEDICARE, SELFPAY ==
[2022-07-07] VITALS (52 sets, daily range): BP systolic 142–155; BP diastolic 59–79; PULSE 47–67; RESP 9–21; TEMP 36.4–36.9; O2SAT 90–99
--- NOTE | 2022-07-07 18:15 | DI.RAD_ITS ---
Exam(s) XR PORTABLE CHEST AP EXAM: XR PORTABLE CHEST AP CLINICAL HISTORY: syncope TECHNIQUE: 2D digital imaging was performed. COMPARISON: CR CHEST 2 VIEWS PA,LAT from 07/27/2017 FINDINGS: LUNGS: Clear. No pleural abnormality seen. HEART: Enlarged, unchanged. AORTA: Normal diameter. BONES: Degenerative changes in the spine. Soft tissues: Unremarkable. IMPRESSION: No acute findings. DATA REPOSITORY: RADIATION DOSE DELIVERED:
--- NOTE | 2022-07-07 18:30 | RT.EKG_ITS ---
APPROVED REPORT Exam: Resting ECG Reason for Exam: syncope Patient Location: E HR:58 bpm ECG Measurements Heart Rate 58 AXIS MS 225 P -65 QRSd 131 QRS -63 QT 464 T 24 QTc 457 Conclusion Sinus or ectopic atrial bradycardia...P axis (-45,135), rate< 60 Prolonged MS interval...MS >220, V-rate 50- 90 IVCD, consider RBBB...QRSd>120mS, terminal axis(90,270) LVH with secondary repolarization abnormality...multi-LVH criteria, abnrm ST-T Inferior infarct, old...Q >35mS, II III aVF Anterior infarct, old...Q >40mS, abnormal ST-T, V2-V5 No interumm change vs 04/06/21
[2022-07-07 18:52] LABS: Abs Immature Grans 0.01 10^3/uL (0.0-0.06); Absolute Basophil Count 0.07 10^3/uL (0.0-0.2); Absolute Eosinophil Count 0.13 10^3/uL (0.0-0.7); Absolute Lymphocyte Count 1.74 10^3/uL (1.2-3.4); Absolute Monocyte Count 0.66 10^3/uL (0.1-0.8); Absolute Neutrophil Count 4.32 10^3/uL (1.2-6.7); Eosinophils % 1.9; HCT 32.4 % (36.0-46.0); HGB 11.1 g/dL (11.2-15.7); Immature Grans % 0.1; Lymphocytes % 25.1; MCH 29.5 pg (27.0-33.0); MCHC 34.3 % (32.0-36.0); MCV 86 fL (80-95); MPV 10.2 fL (8.0-11.0); Monocytes % 9.5; Neutrophils % 62.4; Platelet Count 202 10^3/uL (130-400); RBC 3.76 10^6/uL (3.93-5.22); RDW 13.1 % (11.7-14.6); WBC 6.93 10^3/uL (4.4-10.8)
--- NOTE | 2022-07-07 18:53 | ED.GENADUL_ITS ---
Discharge Plan Disposition Patient Disposition: Admit to [facility] Condition: Good Discharge Details Clinical Impression: Syncope Admit Date/Time: 07/07/22 20:08 Admit Provider: Ko Ritter Attending Provider: Ko Ritter Primary Care Provider: Wesly Ren ED Provider: Martha Rodriguez Medical Decision Making Patient was mildly bradycardic in the ED and may need an event monitor placed. Of note, she was incontinent of urine at home and I wonder if this could be a seizure manifestation. This was all discussed with Dr. Ritter, hospitalist, who accepts the patient to his service. Patient was updated on all of her test results as well as the plan for admission. Medical Records Medical records reviewed: Yes I reviewed the patient's medical records. Imaging Data Radiologic Study: Imaging: X-Ray My impression: No acute disease, cardiomegaly. Lab Data Lab results reviewed: Yes I reviewed the patient's lab results. Lab results narrative: Patient is mildly anemic with an H&H of 11 and 32. This is only mildly changed from prior. ECG Data Attestation: I personally reviewed and interpreted this ECG (s) as follows: Interpretation: Sinus bradycardia at 60, first-degree AV block, right bundle branch block, Q waves inferiorly and V5 and V6, LVH unchanged from 04/06/2021 HPI General Date/Time Provider Initiated Documentation: 07/07/22 18:28 . HPI Narrative: This 77-year-old female patient presents with a chief complaint of near syncope and syncope earlier today. Patient tells me that she has fainted multiple times in the past and been admitted for this. She did wear what sounds like a Holter monitor once for short period of time. She has never had an event monitor. She says that anytime it happens she feels like a train is coming at her. Patient states the first time this happened today she was sitting down and it resolved. The second time this happened she was at the stove and she sat down quickly on the ground. Her said she did lose consciousness completely. Patient denies weakness or dizziness. She has no focal neurologic complaints or headache. She has no chest pain or shortness of breath. Of note, the patient was incontinent of urine at home and vomited once. Related Data Home Medications Medication Instructions Recorded Confirmed ibuprofen 200 mg tablet 400 mg PO DAILY PRN PRN 03/11/14 04/19/23 psyllium husk 0.4 gram capsule 0.4 g PO DAILY 11/12/20 07/07/22 (Metamucil) varicella-zoster glycoE vacc-[id number] 0.5 ml IM ONCE #1 ea 11/12/20 05/26/22 adj(PF) 50 mcg/0.5 mL IM susp, kit (Shingrix (PF)) blood-glucose meter (Contour Next #1 ea 12/16/20 05/26/22 Glucose Meter kit) lancets 28 gauge (CareTouch Safety #200 ea 12/16/20 05/26/22 Lancets) famotidine 20 mg tablet 20 mg PO BID PRN stomach upset #60 11/18/21 07/07/22 tab-caps pravastatin 40 mg tablet 40 mg PO HS #90 tab-caps 11/18/21 07/07/22 potassium chloride 10 mEq 10 meq PO BID #180 caps 03/04/22 07/07/22 capsule,extended release blood sugar diagnostic (Contour #100 ea 04/11/22 05/26/22 Next Test Strips) metformin 500 mg tablet 250 - 500 mg PO BID 05/04/22 07/07/22 peppermint oil 90 mg 180 mg PO BID 05/26/22 05/26/22 capsule,delayed,extended release (IBgard) triamcinolone acetonide 0.1 % 1 applic topical DAILY PRN 05/26/22 05/26/22 topical cream calcium carb-ergocalciferol (vit 1 tab PO QDAY 07/07/22 07/07/22 D2) 600 mg calcium-200 unit tablet Previous Rx's Medication Instructions Recorded varicella-zoster glycoE vacc-AS01B 0.5 ml IM ONCE #1 ea 11/12/20 adj(PF) 50 mcg/0.5 mL IM susp, kit (Shingrix (PF)) blood-glucose meter (Contour Next #1 ea 12/16/20 Glucose Meter kit) lancets 28 gauge (CareTouch Safety #200 ea 12/16/20 Lancets) famotidine 20 mg tablet 20 mg PO BID PRN stomach upset #60 11/18/21 tab-caps pravastatin 40 mg tablet 40 mg PO HS #90 tab-caps 11/18/21 potassium chloride 10 mEq 10 meq PO BID #180 caps 03/04/22 capsule,extended release blood sugar diagnostic (Contour #100 ea 04/11/22 Next Test Strips) Allergies Allergy/AdvReac Type Severity Reaction Status Date / Time Sulfa (Sulfonamide Allergy Mild swelling Verified 05/26/22 10:57 Antibiotics) to bottom lip morphine AdvReac Severe GI UPSET Verified 05/26/22 10:57 tetracycline AdvReac Unknown GI UPSET Verified 05/26/22 10:57 lisinopril AdvReac cough Verified 05/26/22 10:57 General Stated Complaint: Dizzy/Sync JESSICA: 3 Review of Systems Constitutional Constitutional: Denies chills, Denies fever(s), Denies headache(s) and Denies weakness Eyes Eyes: Denies diplopia and Reports other (no redness) ENT Ears, Nose, Mouth, and Throat: Denies otalgia, Denies headache(s), Denies nasal congestion, Denies nasal discharge, Denies neck pain and Denies sore throat Cardiovascular Cardiovascular: Denies chest pain, Reports syncope (near syncope and syncope), Denies palpitations and Denies dyspnea Respiratory Respiratory: Denies cough and Denies dyspnea Gastrointestinal Gastrointestinal: Denies abdominal pain, Denies diarrhea, Denies nausea and Denies vomiting Genitourinary Genitourinary: Denies dysuria Musculoskeletal Musculoskeletal: Denies myalgias, Denies muscle weakness, Denies neck pain, Denies numbness and Reports other (edema) Integumentary/Breasts Skin/Breast: Denies change in pigmentation and Denies rash Neurologic Neurologic: Reports syncope (near syncope and syncope), Denies headache(s), Denies numbness and Denies weakness Endocrine Endocrine: Denies palpitations PFSH All Active Problems (Updated 07/07/22 @ 20:54 by Ko Ritter MD) Syncope (Chronic) Nonischemic cardiomyopathy (Chronic) Hyperacusis, bilateral (Acute) Sensorineural hearing loss, bilateral (Acute) Headache (Acute) Nasal congestion (Acute) Depressive disorder (Acute) Diabetes mellitus (Chronic 09/15/12) labs reviewed Gastroesophageal reflux disease (Acute) EGD 2005 normal Hyperlipidemia (Chronic) Irritable colon (Acute) Malignant neoplasm of female breast (Acute 02/17/93) S/P BILAT MASTECTOMY AND IMPLANTS right mastectomy; 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 Obesity (Acute) Pancolonic diverticulosis (Acute 07/14/16) Rhytides (Acute 05/31/16) 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) Fracture of distal fibula (Acute) 03/18/18 (L) [facility] Diaphoresis (Acute) Systolic dysfunction (Acute) Mitral regurgitation (Chronic) S/P cardiac cath (Acute) 02/14/19 [facility] [place] Shortness of breath (Acute) Ear pain, right (Acute) Acute swimmer's ear of right side (Acute) Otitis externa in other diseases classified elsewhere, bilateral (Acute) Superficial mycosis (Acute) Chronic swimmer's ear of both sides (Acute) Chronic eczematous otitis externa of both ears (Acute) Restless leg syndrome (Acute) Adjustment disorder with depressed mood (Acute) Hypertension (Chronic) Syncope (Chronic) Headache (Acute) Low blood sugar (Acute) Closed fracture of distal ends of left radius and ulna (Acute 09/17/21) Ankle weakness (Acute) Medical History Breast cancer Constipation DM (diabetes mellitus) GERD (gastroesophageal reflux disease) Rheumatic fever Surgical History breast reconstruction 03/30 08/28 Breast, Mastectomy right 2009 left Cholecystectomy (~04/2009) Colonoscopy - MAC (07/14/16) 01/26- Venkat Suero-rafal EGD - MAC 06/2015-Dr. Baker- GERD Family History Mother , AGE 72 Depression Father , AGE 87 Diabetes Heart disease Sister Stroke Brother Diabetes Essential hypertension Heart disease s/p CABG Hypercholesteremia Skin cancer COPD (chronic obstructive pulmonary disease) Maternal Grandfather , AGE 64 Heart disease Cancer Paternal Grandfather , age 64 Heart disease Maternal Grandmother , AGE 62 Uterine cancer Paternal Grandmother , CHILDBIRTH at age 19. No problems noted. 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) Details: daughter is diasabled from childhood due to brain cancer, stroke 07/07 Household members: spouse and children Housing: house Communication Needs: None Do you need help understanding health information?: Rarely Pets and animals: Yes Pets and animals: cat(s) Sexually active: No Do you think of yourself as: straight/heterosexual Current gender identity: female What is your relationship status?: How often do you talk on the phone with friends or family?: twice per week How often do you get together with friends or relatives?: once per week How often do you attend pentecostal or mormon services?: decline to answer Do you belong to any clubs or organized social groups?: no Panel score (0-1 are the most socially isolated patients): 2 What type of physical activity do you participate in: none Antonia/Hindu: Gnosticist Special antonia needs: No Seatbelt use: always Drive intox or ride w/intox lift driver: No Do you feel safe at home: Yes Do you feel safe in your relationship?: Yes Exam Const General: no acute distress, well developed, well groomed and not in acute distress Nutritional Appearance: well nourished Orientation: alert and oriented x3 HENMT Head: normocephalic and atraumatic Ears: external ears normal Mouth: oropharynx normal and moist mucous membranes Throat: posterior oropharynx normal Eyes Conjunctivae: conjunctivae normal Neck Neck: full ROM and supple Chest Chest: normal inspection of the chest Resp Effort & Inspection: normal respiratory effort Auscultation: clear to auscultation bilaterally Cardio Rate: regular rate Rhythm: regular rhythm Heart Sounds: no murmurs and no rubs GI Inspection: normal to inspection Palpation: soft, nontender and other (non distended) Auscultation: normal bowel sounds Skin General skin exam: no rashes or lesions noted and other (pink, warm, dry) Neuro General: patient alert, patient awake and patient oriented x3 Cranial Nerves: CN's II-XI intact bilaterally Cognition: normal cognition Speech: speech normal Motor: other (LAINEZ) Sensory Exam: no sensory deficits noted Extrem General: normal to inspection, full ROM and pedal edema present Psych Mental Status: mental status grossly normal Speech and Movement: speech and movement normal Affect: normal affect Course Vital Signs Vital signs: Vital Signs Temperature 36.4 C L 07/07/22 18:20 Pulse 64 07/07/22 18:20 Respiratory Rate 16 07/07/22 18:20 Blood Pressure 142/76 H 07/07/22 18:20 Pulse Oximetry 96 07/07/22 18:20 Temperature 36.4 C L 07/07/22 18:20 Temperature Source Oral 07/07/22 18:20 Pulse 64 07/07/22 18:20 Respiratory Rate 16 07/07/22 18:20 Respiratory Effort Normal 07/07/22 18:28 Blood Pressure 142/76 H 07/07/22 18:20 Blood Pressure Position Supine 07/07/22 18:20 Pulse Oximetry 96 07/07/22 18:20 Oxygen Delivery Method Room Air 07/07/22 18:20 Oxygen Flow Rate 0 07/07/22 18:20 Pain Level 3 07/07/22 18:20
[2022-07-07 19:12] LABS: ALT 20 U/L (14-59); AST 17 U/L (15-37); Albumin 3.3 g/dL (3.4-5.0); Alkaline Phosphatase 67 U/L (46-116); Anion Gap 11.1 mmol/L (3-11); BUN 16 mg/dL (7-18); Bilirubin, Total 0.5 mg/dL (0.2-1.0); CO2 23.9 mmol/L (21.0-32.0); CREATININE 1.1 mg/dL (0.55-1.02); Calcium 8.7 mg/dL (8.5-10.1); Chloride 106 mmol/L (98-107); Estimated GFR 51.75 (mL/min/1.73m2); Glucose 180 mg/dL (74-106); Magnesium 1.8 mg/dL (1.8-2.4); Potassium 3.5 mmol/L (3.5-5.1); Sodium 141 mmol/L (136-145); Total Protein 6.2 g/dL (6.4-8.2); Troponin I < 50 ng/L (<or=60)
--- NOTE | 2022-07-07 20:00 | DI.VRAD_ITS ---
PROCEDURE INFORMATION: Exam: XR Chest Exam date and time: 07/07/2022 7:25 PM Age: 77 years old Clinical indication: Other: Syncope TECHNIQUE: Imaging protocol: Radiologic exam of the chest. Views: 1 view. COMPARISON: CR CHEST 2 VIEWS PA,LAT 07/27/2017 9:50 AM FINDINGS: Mildly limited due to rotation Lungs: Unremarkable. No consolidation. Pleural spaces: Unremarkable. No pleural effusion. No pneumothorax. Heart/Mediastinum: Grossly stable cardiomegaly. Bones/joints: Unremarkable. IMPRESSION: No acute findings. Dictated and Authenticated by: Shant Orosco MD. Ordering:CLOTILDE Thomas MD
--- NOTE | 2022-07-07 20:14 | HPE_ITS ---
Date of service: 07/07/22 Time of Service: 20:14 Assessment and Plan Assessment and plan (1) Syncope: Status: Chronic Assessment and plan: Previous episodes reported. Holter monitor 06/12/21: This is a 48-hour Holter monitor ordered for syncope Predominant rhythm was sinus.? Average heart rate was 66.? Minimum was 52, maximum 117 There were very rare isolated atrial and ventricular ectopic beats There was no atrial fibrillation, no high-grade AV block, no pauses greater than 3 seconds Patient symptoms did not correspond to any dysrhythmia Telemetry. Consider atypical seizures; EEG ordered. Second troponin pending. (2) Nonischemic cardiomyopathy: Status: Chronic (3) Diabetes mellitus: Status: Chronic Assessment and plan: A1c 7.3 on 05/26/22. Carbohydrate diet. Continue home metformin 500mg BID. Monitor. (4) Hyperlipidemia: Status: Chronic Assessment and plan: Cont pravastatin. (5) Mitral regurgitation: Status: Chronic Assessment and plan: No echocardiogram in our records. Previous left heart catheterization at [facility]: normal. Also right heart cath whoed normal filling pressures. Plan with cardiology, Dr Dos Santos, in 2020 was to repeat echocardiogram in 2 years. Echocardiogram ordered. History of Present Illness History of Present Illness Chief Complaint: Syncope Narrative: This is a 77 yo female with a PMH of HTN, mitral regurgitation, DM2, HTN, HLD, obesity, depressive disorder, breast CA s/p mastectomy, GERD, RLS and previous syncopal episodes. She presented to the ED after an episode of near syncope and an episode of syncope on the day of presentation. The first episode occurred while she was sitting; near syncopal. She describes a prodrome of feeling like a cloud coming at her. She second event occurred while she was standing at the stove. She was able to let herself down to the floor. Her witnessed that she lost consciousness. After the second episode she vomited and she was incontinent of urine. She did not experience vertigo, CP/palpitations, VALVERDE prior to the episodes. No prolonged period of drowsiness afterwards. She experienced 3 episodes of syncope last year and she had incontinence of urine with one of those. She has a daughter with a seizure disorder. In the ED: Vital Signs Temperature ?36.4 C L ?07/07/22 18:20 Pulse ?64 ?07/07/22 18:20 Respiratory Rate ?16 ?07/07/22 18:20 Blood Pressure ?142/76 H ?07/07/22 18:20 Pulse Oximetry ?96 ?07/07/22 18:20 EKG showed sinus bradycardia; rate of 58. Prolonged IN interval. LVH. Troponin negative. WBC count normal. Hgb 11.1 (just slightly lower than previous values that were in the upper 11's).Lytes normal. BUN 16. Creatinine 1.1. Glucose 180. LFTs normal. Admit for monitoring and further evaluation. Review of Systems All systems reviewed & are unremarkable except as noted in HPI and below PFSH All Active Problems (Updated 07/07/22 @ 20:54 by Ko Ritter MD) Syncope (Chronic) Nonischemic cardiomyopathy (Chronic) Hyperacusis, bilateral (Acute) Sensorineural hearing loss, bilateral (Acute) Headache (Acute) Nasal congestion (Acute) Depressive disorder (Acute) Diabetes mellitus (Chronic 09/15/12) labs reviewed Gastroesophageal reflux disease (Acute) EGD 2005 normal Hyperlipidemia (Chronic) Irritable colon (Acute) Malignant neoplasm of female breast (Acute 02/17/93) S/P BILAT MASTECTOMY AND IMPLANTS right mastectomy; 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 Obesity (Acute) Pancolonic diverticulosis (Acute 07/14/16) Rhytides (Acute 05/31/16) 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) Fracture of distal fibula (Acute) 03/18/18 (L) [facility] Diaphoresis (Acute) Systolic dysfunction (Acute) Mitral regurgitation (Chronic) S/P cardiac cath (Acute) 02/14/19 [facility] [place] Shortness of breath (Acute) Ear pain, right (Acute) Acute swimmer's ear of right side (Acute) Otitis externa in other diseases classified elsewhere, bilateral (Acute) Superficial mycosis (Acute) Chronic swimmer's ear of both sides (Acute) Chronic eczematous otitis externa of both ears (Acute) Restless leg syndrome (Acute) Adjustment disorder with depressed mood (Acute) Hypertension (Chronic) Syncope (Chronic) Headache (Acute) Low blood sugar (Acute) Closed fracture of distal ends of left radius and ulna (Acute 09/17/21) Ankle weakness (Acute) Medical History Breast cancer Constipation DM (diabetes mellitus) GERD (gastroesophageal reflux disease) Rheumatic fever Surgical History breast reconstruction 03/30 08/28 Breast, Mastectomy right 2009 left Cholecystectomy (~04/2009) Colonoscopy - [facility] (07/14/16) 01/26- Venkat Suero-rafal EGD - MAC 06/2015-Dr. Baker- GERD Family History Mother , AGE 72 Depression Father , AGE 87 Diabetes Heart disease Sister Stroke Brother Diabetes Essential hypertension Heart disease s/p CABG Hypercholesteremia Skin cancer COPD (chronic obstructive pulmonary disease) Maternal Grandfather , AGE 64 Heart disease Cancer Paternal Grandfather , age 64 Heart disease Maternal Grandmother , AGE 62 Uterine cancer Paternal Grandmother , CHILDBIRTH at age 19. No problems noted. 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 her 44 yr old daughter who is total care) Details: daughter is diasabled from childhood due to brain cancer, stroke 07/07 Household members: spouse and children Housing: house Communication Needs: None Do you need help understanding health information?: Rarely Pets and animals: Yes Pets and animals: cat(s) Sexually active: No Do you think of yourself as: straight/heterosexual Current gender identity: female What is your relationship status?: How often do you talk on the phone with friends or family?: twice per week How often do you get together with friends or relatives?: once per week How often do you attend sabianist or zoroastrianism services?: decline to answer Do you belong to any clubs or organized social groups?: no Panel score (0-1 are the most socially isolated patients): 2 What type of physical activity do you participate in: none Antonia/Jewish: Denominational Special antonia needs: No Seatbelt use: always Drive intox or ride w/intox miniature train driver: No Do you feel safe at home: Yes Do you feel safe in your relationship?: Yes Meds Allergies and Home Medications Allergies Allergy/AdvReac Type Severity Reaction Status Date / Time Sulfa (Sulfonamide Allergy Mild swelling Verified 05/26/22 10:57 Antibiotics) to bottom lip morphine AdvReac Severe GI UPSET Verified 05/26/22 10:57 tetracycline AdvReac Unknown GI UPSET Verified 05/26/22 10:57 lisinopril AdvReac cough Verified 05/26/22 10:57 Home Medications Medication Instructions Recorded Confirmed Type ibuprofen 200 mg tablet 400 mg PO DAILY PRN PRN 05/29/13 07/07/22 History psyllium husk 0.4 gram capsule 0.4 g PO DAILY 11/12/20 07/07/22 History (Metamucil) varicella-zoster glycoE [id number] 0.5 ml IM ONCE #1 ea 11/12/20 05/26/22 Rx adj(PF) 50 mcg/0.5 mL IM susp, kit (Shingrix (PF)) blood-glucose meter (Contour Next #1 ea 12/16/20 05/26/22 Rx Glucose Meter kit) lancets 28 gauge (CareTouch Safety #200 ea 12/16/20 05/26/22 Rx Lancets) famotidine 20 mg tablet 20 mg PO BID PRN stomach upset #60 11/18/21 07/07/22 Rx tab-caps pravastatin 40 mg tablet 40 mg PO HS #90 tab-caps 11/18/21 07/07/22 Rx potassium chloride 10 mEq 10 meq PO BID #180 caps 03/04/22 07/07/22 Rx capsule,extended release blood sugar diagnostic (Contour #100 ea 04/11/22 05/26/22 Rx Next Test Strips) metformin 500 mg tablet 250 - 500 mg PO BID 05/04/22 07/07/22 History peppermint oil 90 mg 180 mg PO BID 05/26/22 05/26/22 History capsule,delayed,extended release (IBgard) triamcinolone acetonide 0.1 % 1 applic topical DAILY PRN 05/26/22 05/26/22 History topical cream calcium carb-ergocalciferol (vit 1 tab PO QDAY 07/07/22 07/07/22 History D2) 600 mg calcium-200 unit tablet Exam Const General: no acute distress, well developed and well groomed Nutritional Appearance: well nourished Orientation: alert and oriented x3 [facility] Head: normocephalic and atraumatic Mouth: oropharynx normal and moist mucous membranes Eyes General: appearance normal, both eyes and all related structures Sclera: sclerae normal Neck Neck: full ROM, supple and no JVD Chest Chest: normal inspection of the chest Resp Effort & Inspection: normal respiratory effort Auscultation: clear to auscultation bilaterally Cardio Rate: regular rate Rhythm: regular rhythm Heart Sounds: S1 normal, S2 normal and no murmurs GI Inspection: normal to inspection and non-distended Palpation: soft and nontender Auscultation: normal bowel sounds Skin General skin exam: no rashes or lesions noted Neuro General: patient alert, patient awake, patient oriented x3 and no focal motor deficits Cranial Nerves: facial strength normal Cognition: normal cognition Speech: speech normal Extrem General: normal to inspection, pedal edema present and no calf tenderness Psych Mental Status: mental status grossly normal Speech and Movement: speech and movement normal Affect: normal affect Results Labs 07/07/22 18:47 07/07/22 18:47 Labs: Laboratory Results - last 24 hr 07/07/22 07/07/22 18:47 18:47 WBC 6.93 RBC 3.76 L Hgb 11.1 L Hct 32.4 L MCV 86 MCH 29.5 MCHC 34.3 RDW 13.1 Plt Count 202 MPV 10.2 Immature Gran % 0.1 Neutrophils % 62.4 Lymphocytes % 25.1 Monocytes % 9.5 Eosinophils % 1.9 Basophils % 1.0 Nucleated RBC % 0.0 Absolute Neutrophils 4.32 Absolute Lymphocytes 1.74 Absolute Monocytes 0.66 Absolute Eosinophils 0.13 Absolute Basophils 0.07 Sodium 141 Potassium 3.5 Chloride 106 Carbon Dioxide 23.9 Anion Gap 11.1 H BUN 16 Creatinine 1.1 H Est GFR (CKD-EPI 2020) 51.75 Glucose 180 H Calcium 8.7 Magnesium 1.8 Total Bilirubin 0.5 AST 17 ALT 20 Alkaline Phosphatase 67 Troponin I < 50 Total Protein 6.2 L Albumin 3.3 L Last Vital Signs Temp 36.4 C L 07/07/22 18:20 Pulse 56 L 04/19/23 19:46 Resp 14 07/07/22 19:50 BP 147/70 H 07/07/22 19:46 Pulse Ox 95 07/07/22 19:50 Time Spent Time spent with Patient: 40-54 minutes Time was spent: preparing to see the patient(eg.review tests), obtaining and/or reviewing separately otained hiistory, ordering medications,tests, procedures, referring, communicating with other health director of healthcare systems, indepentently interpreting results and counseling the patient
[2022-07-07 20:27] LABS: Source Nasal/Nares
[2022-07-07 21:12] LABS: COVID-19 PCR Negative (Negative)
[2022-07-07 21:48] LABS: Troponin I < 50 ng/L (<or=60)
[2022-07-07] MEDS: metFORMIN 500 MG TAB PO (22:03)
[2022-07-07] MEDS: Pravastatin 40 MG TAB PO (22:07)
[2022-07-08] VITALS (149 sets, daily range): BP systolic 116–141; BP diastolic 54–66; PULSE 35–94; RESP 8–23; TEMP 36.1–36.8; O2SAT 91–98
--- NOTE | 2022-07-08 | DI.US_ITS ---
APPROVED REPORT EXAM: Comprehensive 2D, Doppler, and color-flow Echocardiogram Patient Location: In-Patient Room/Bed: [id number]: Brisa Vogt RDCS (AE) Indications: Mitral regurgitation, syncope Other Information Study Quality: Fair. Technically limited study due to body habitus, parasternal imaging very limited. . Conclusion Normal left ventricular wall thickness and chamber size. Estimated ejection fraction is 45 to 50%. No segmental wall motion abnormalities are identified Right ventricle is normal in size, grossly normal and systolic function Both atria are normal in size Aortic valve is mildly sclerotic without stenosis or regurgitation Normal mitral valve with mild to moderate regurgitation Normal tricuspid valve with trace regurgitation. Estimated right ventricular systolic pressure is no rmal at 21 mmHg Wall motion Left Ventricle Technically very limited parasternal imaging. Left ventricular systolic function is moderately decre ased. Unable to assess LV wall thickness. There is global hypokinesis of the left ventricle. There is no ventricular septal defect visualized. LVEF is 45-50%. Right Ventricle The right ventricle is normal size. Right ventricular systolic function is grossly normal. Atria The left atrium size is normal. Right atrium is mildly dilated. The interatrial septum is intact with no evidence for an atrial septal defect. Aortic Valve The Aortic valve is mildly sclerotic. There is no aortic valvular stenosis. No aortic regurgitation i s present. Mitral Valve The mitral valve is normal in structure. No evidence of mitral valve stenosis. Mild to moderate jannie l regurgitation. Tricuspid Valve The tricuspid valve is normal in structure. There is no tricuspid valve stenosis. Trace tricuspid reg urgitation. Pulmonic Valve Pulmonic valve is not well visualized. Great Vessels The aortic root is normal in size. Ascending aorta is not well visualized. Aortic arch is normal in c aliber. IVC is normal in size and collapses >50% with inspiration. Pericardium There is no pericardial effusion. 2D Dimensions Ao Root d 2.86 cm F: 2.7 - 3.3 LV Vol A2C d MOD 114.3 mL RA Area A4C 15.63 cm2 LV Vol A4C d MOD 88.9 mL RA Vol/ BSA A4C s A-L 22.5 mL/m2 LA vol/ BSA A2C s A-L 40.1 mL/m2 LVEF (Hull's) 39.31 % F: 54 - 74 LA vol/ BSA A4C s A-L 16.7 mL/m2 LV Volume 77.81 mL F: 46 - 106 LA Vol/ BSA Biplane s A-L 27.1 mL/m2 LV Volume Index 39.29 mL/m2 F: 29 - 61 LA Area A4C s MOD 13.86 cm2 LV Vol Biplane MOD 103.3 mL LA Area A2C s MOD 22.40 cm2 LV EF A4C MOD 45.2 % LV EF A2C MOD 40.9 % LV EF Biplane MOD 39.3 % SV 40.61 mL SV Index 20.57 mL/m2 M-Mode TAPSE 2.51 cm (M/F) >1.7 LV Diastology MV E' medial 0.117 (>0.07 m/s) E/A Ratio 0.5 LV E/e MED 4.35 (<14) MV E Vmax 0.51 (0.4-1.3 m/s) MV E' lateral 0.070 (>0.1 m/s) MV A Vmax 1.05 (0.4-1.3 m/s) LV E/e LAT 7.30 (<14) MV E/A Ratio 0.48 MV E/E' medial 4.38 MV E/E' lateral 7.33 Aortic Valve LVOT Area 2.98 cm2 AoV Area Vmax 2.41 cm2 LVOT Vmax 1.03 m/s AoV Area/ BSA (Vmax) 1.22 cm2/m2 LVOT Mean Laz. 0.68 m/s MARIBETH Mean Laz. 2.16 cm2 LVOT Peak Grad 4.2 mmHg MARIBETH Mean Laz. Index 1.09 cm2/m2 LVOT Mean Grad 2.2 mmHg LVOT VTI 0.224 m LVOT Diam s 1.90 cm AoV Vmax 1.27 m/s Velocity Ratio 0.81 AoV Mean Laz. 0.94 m/s AoV Peak Grad 6.5 mmHg LVOT SV 66.74 mL AoV Mean Grad 3.8 mmHg AoV VTI 0.287 m AoV Area VTI 2.33 cm2 AoV Area/ BSA (VTI) 1.18 cm/m2 Mitral Valve MV DT 261 (160-240 msec) MV PHT 76 msec MV Area PHT 2.91 cm2 MV VTI 0.424 m MV Area VTI 1.57 (4.0-6.0 cm2) Tricuspid Valve TR Peak Grad 18.5 mmHg TR Vmax 2.15 m/s RA Pressure 3.00 mmHg RVSP (TR) 21.5 mmHg
[2022-07-08 06:33] LABS: Anion Gap 8.2 mmol/L (3-11); BUN 12 mg/dL (7-18); CO2 27.8 mmol/L (21.0-32.0); CREATININE 0.9 mg/dL (0.55-1.02); Calcium 8.6 mg/dL (8.5-10.1); Chloride 105 mmol/L (98-107); Estimated GFR 65.84 (mL/min/1.73m2); Glucose 100 mg/dL (74-106); Potassium 3.6 mmol/L (3.5-5.1); Sodium 141 mmol/L (136-145)
[2022-07-08] MEDS: Potassium Chloride 10 MEQ CAPCR PO (08:50)
--- NOTE | 2022-07-08 10:02 | W.PM.PROGNOT ---
Date of Service Date of service: 07/08/22 Time of Service: 10:02 Assessment and Plan Assessment and plan (1) Syncope: Status: Chronic Assessment and plan: Previous episodes reported last year for which no arrhythmias could be documented on Holter. Patient had an episode this morning which patient became very lightheaded heart rate was in the 30s associated with Mobitz type I second-degree AV block. Her baseline ECG demonstrates trifascicular block with first-degree AV block as well as a left anterior fascicular block and right bundle branch block. Professional time spent interviewing and examining patient, discussion of goals of care with hospital team (care management, nursing and consulting professionals) was 50 minutes. (2) Mobitz (type) I (Wenckebach's) atrioventricular block: Status: Acute Assessment and plan: Case was discussed with Dr. Heavenly Polnaco, cow washer she reviewed the patient's rhythm strips and EKG and recommends EP referral. Call placed to [facility] transfer center to request discussion with EP cardiology for transfer. (3) Right bundle branch block: Status: Acute (4) Nonischemic cardiomyopathy: Status: Chronic Assessment and plan: Patient had previous cardiac catheterization in 2019 that showed no hemodynamically significant coronary disease. We will get a follow-up echocardiogram this morning to assess valvular function given her prior history of mitral regurgitation. Troponins were negative for acute ischemic event last night. (5) Diabetes mellitus: Status: Chronic Assessment and plan: A1c 7.3 on 05/26/22. Carbohydrate diet. Home metformin dose has been corrected she takes 250 mg the morning 500 at night. Monitor. (6) Hyperlipidemia: Status: Chronic Assessment and plan: Cont pravastatin. (7) Mitral regurgitation: Status: Chronic Assessment and plan: No echocardiogram in our records. Previous left heart catheterization at [facility]: normal. Also right heart cath whoed normal filling pressures. Plan with cardiology, Dr Dos Santos, in 2020 was to repeat echocardiogram in 2 years. Echocardiogram ordered. Subjective Subjective Interval history since last seen: 77-year-old female with history of type 2 diabetes mellitus, essential hypertension, moderate mitral regurgitation who was admitted last night with recurrent syncope and near syncope. She had previous episodes last year had a work-up that included Holter monitor. Last Holter monitor was performed 06/12/2021. There is a 48-hour Holter monitor that demonstrated predominant sinus rhythm. Average heart rate 66 bpm minimum 52 bpm maximal 117 bpm. That reading had isolated atrial and ventricular ectopic beats but no atrial fibrillation no high-grade AV block no pauses greater than 3 seconds. Patient was asymptomatic during that study. Last Holter monitor was performed 06/12/2021. There is a 48-hour Holter monitor that demonstrated predominant sinus rhythm. Average heart rate 66 bpm minimum 52 bpm maximal 117 bpm. That reading had isolated atrial and ventricular ectopic beats but no atrial fibrillation no high-grade AV block no pauses greater than 3 seconds. Patient was asymptomatic during that study. Please see Dr. Weller's dictated note from 02/13/2019. This morning patient had a near syncopal spell associated with sinus bradycardia with Mobitz type I second-degree AV block heart rate was in the 30s. Exam Narrative Exam Narrative: Rosanne sitting up in bed no acute distress alert and oriented person place time circumstance Neck is supple nontender no JVD normal carotid pulses no bruits Lungs are clear to auscultation Heart is regular no appreciable murmur rub or gallop and no thrill or heave. Abdomen soft nontender nondistended Extremities without edema Objective Last Vital Signs Temp 36.1 C L 07/08/22 07:06 Pulse 58 L 07/08/22 07:01 Resp 14 07/08/22 07:05 BP 116/54 L 07/08/22 07:01 Pulse Ox 96 07/08/22 07:05 Laboratory Results - last 24 hr 07/07/22 07/07/22 07/07/22 18:47 18:47 20:18 WBC 6.93 RBC 3.76 L Hgb 11.1 L Hct 32.4 L MCV 86 MCH 29.5 MCHC 34.3 RDW 13.1 Plt Count 202 MPV 10.2 Immature Gran % 0.1 Neutrophils % 62.4 Lymphocytes % 25.1 Monocytes % 9.5 Eosinophils % 1.9 Basophils % 1.0 Nucleated RBC % 0.0 Absolute Neutrophils 4.32 Absolute Lymphocytes 1.74 Absolute Monocytes 0.66 Absolute Eosinophils 0.13 Absolute Basophils 0.07 Sodium 141 Potassium 3.5 Chloride 106 Carbon Dioxide 23.9 Anion Gap 11.1 H BUN 16 Creatinine 1.1 H Est GFR (CKD-EPI 2020) 51.75 Glucose 180 H Calcium 8.7 Magnesium 1.8 Total Bilirubin 0.5 AST 17 ALT 20 Alkaline Phosphatase 67 Troponin I < 50 Total Protein 6.2 L Albumin 3.3 L COVID-19 Source Nasal/Nares SARS-CoV-2 (PCR) Negative 07/07/22 07/08/22 21:22 05:25 WBC RBC Hgb Hct MCV MCH MCHC RDW Plt Count MPV Immature Gran % Neutrophils % Lymphocytes % Monocytes % Eosinophils % Basophils % Nucleated RBC % Absolute Neutrophils Absolute Lymphocytes Absolute Monocytes Absolute Eosinophils Absolute Basophils Sodium 141 Potassium 3.6 Chloride 105 Carbon Dioxide 27.8 Anion Gap 8.2 BUN 12 Creatinine 0.9 Est GFR (CKD-EPI 2020) 65.84 Glucose 100 Calcium 8.6 Magnesium Total Bilirubin AST ALT Alkaline Phosphatase Troponin I < 50 Total Protein Albumin COVID-19 Source SARS-CoV-2 (PCR) Time Spent with Patient Time Spent with Patient: 35-49 minutes Time was spent: preparing to see the patient(eg.review tests), obtaining and/or reviewing separately otained hiistory, ordering medications,tests, procedures, referring, communicating with other health outdoor emergency care technician (Dr. Polanco and [facility] cardiology), indepentently interpreting results, counseling the patient and care coordination
--- NOTE | 2022-07-08 10:14 | INITIAL_ITS ---
- If Service Date Differs Date of service: 07/08/22 Time of Service: 10:14 Care Management Initial Assess REASON FOR HOSPITALIZATION:: syncope PAST MEDICAL HISTORY/PAST SURGICAL HISTORY:: All Active Problems. Syncope (Chronic). Nonischemic cardiomyopathy (Chronic). Hyperacusis, bilateral (Acute). Sensorineural hearing loss, bilateral (Acute). Headache (Acute). Nasal congestion (Acute). Depressive disorder (Acute). Diabetes mellitus (Chronic 09/15/12). labs reviewed. Gastroesophageal reflux disease (Acute). EGD 2005 normal. Hyperlipidemia (Chronic). Irritable colon (Acute). Malignant neoplasm of female breast (Acute 02/17/93). S/P BILAT MASTECTOMY AND IMPLANTS. 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 Obesity (Acute). Pancolonic diverticulosis (Acute 07/14/16). Rhytides (Acute 05/31/16). 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 Fracture of distal fibula (Acute). 03/18/18 (L) [facility]. Diaphoresis (Acute). Systolic dysfunction (Acute). Mitral regurgitation (Chronic). S/P cardiac cath (Acute). 02/14/19 [facility] [place] [place]. Shortness of breath (Acute). Ear pain, right (Acute). Acute swimmer's ear of right side (Acute). Otitis externa in other diseases classified elsewhere, bilateral (Acute). Superficial mycosis (Acute). Chronic swimmer's ear of both sides (Acute). Chronic eczematous otitis externa of both ears (Acute). Restless leg syndrome (Acute). Adjustment disorder with depressed mood (Acute). Hypertension (Chronic). Syncope (Chronic). Headache (Acute). Low blood sugar (Acute). Closed fracture of distal ends of left radius and ulna (Acute 09/17/21). Ankle weakness (Acute). Medical History. Breast cancer. Constipation. DM (diabetes mellitus). GERD (gastroesophageal reflux disease). Rheumatic fever. Surgical History. breast reconstruction. 03/30. 08/28. Breast, Mastectomy. right. 2008 left. Cholecystectomy (~04/2009). Colonoscopy - [facility] (07/14/16). 01/26- Venkat Gonzalez. EGD - [facility]. 06/2015- Dr. Laurie BARRERA PREVIOUS FUNCTIONAL STATUS/SOCIAL/FAMILY SUPPORTS:: Cindy lives in [place] with her , Sae, and their disabled daughter. She is independent at baseline. CURRENT FUNCTIONAL STATUS:: Cindy was lying in bed when CM met with her. She stated that she is waiting to hear her plan from the MD. Per report, she may transfer to [facility], if accepted. She reported that she is the primary caregiver to her disabled daughter, but her is home with her, who also cares for her. Cidny is independent at baseline. CM will continue to follow. ADVANCE DIRECTIVES:: On file, Mike () listed as agent. Has patient been provided with info about the portal/API?: Yes Did the patient sign up for the portal?: Yes (active) CODE STATUS:: Full Code INSURANCE COVERAGE / FINANCIAL ISSUES:: [place] [employer] CURRENT HOME/COMMUNITY SERVICES/EQUIPMENT:: none. PRIMARY CARE PHYSICIAN:: Wesly Ren POTENTIAL DISCHARGE NEEDS:: Evaluations for further needs, follow up appointments. PATIENT/FAMILY EDUCATION NEEDS:: Review discharge instructions and limitations, discussion of self care needs including ask me three. ANTICIPATED BARRIERS TO DISCHARGE:: None identified. TRANSPORTATION:: Via private vehicle by her . PLAN:: Cindy may transfer to [facility], if accepted. She will transport via EMS, coordinated by RN supervisor hospitality house. She will follow up with her PCP and discharge plan of care. CM will continue to follow.
--- NOTE | 2022-07-08 10:45 | W.CARDCONSUL ---
Date of service: 07/08/22 Time of Service: 10:45 Assessment and Plan Assessment and plan (1) Right bundle branch block: Status: Acute (2) Mobitz (type) I (Wenckebach's) atrioventricular block: Status: Acute (3) Syncope: Status: Chronic (4) Nonischemic cardiomyopathy: Status: Chronic Assessment and plan: Patient's presentation and findings were discussed with Dr. Tony. She clearly has conduction system disease as evidenced by her baseline EKG showing first-degree AV block, left anterior fascicular block and a right bundle branch block. She has had 2-1 AV block as well as what is Mobitz 1 second-degree AV block. She has presented with several episodes of syncope and I think the next step would be to do formal conduction system studies to see if she would benefit from a pacemaker. Dr. Santamaria is going to contact [facility] and see if transfer can be arranged History of Present Illness History of Present Illness Chief Complaint: Syncope Narrative: This is a 77-year-old woman who presented to the hospital because of episodes of near syncope and syncope. She has a history of a nonischemic cardiomyopathy with very mildly reduced left ventricular systolic function, mild mitral regurgitation. She had cardiac catheterization in 2019 which showed minimal nonobstructive coronary disease. She has an abnormal resting electrocardiogram which is chronic showing a left anterior fascicular block, right bundle branch block and first-degree AV block. She had syncope in the spring 2021 which prompted a Holter monitor. This was unrevealing. She presented to the emergency room recently with reports of near syncope and syncope. One occurred while she was sitting. She has been monitored on telemetry and has had documented Mobitz 1 second-degree AV block and also periods of 2-1 AV block which were symptomatic. She takes no AV jeramie blocking drugs or medications that would contribute to bradycardia [facility] All Active Problems (Updated 07/08/22 @ 10:48 by Venkat Nelson MD) Right bundle branch block (Acute) Mobitz (type) I (Wenckebach's) atrioventricular block (Acute) Syncope (Chronic) Nonischemic cardiomyopathy (Chronic) Hyperacusis, bilateral (Acute) Sensorineural hearing loss, bilateral (Acute) Headache (Acute) Nasal congestion (Acute) Depressive disorder (Acute) Diabetes mellitus (Chronic 06/28/13) labs reviewed Gastroesophageal reflux disease (Acute) EGD 2005 normal Hyperlipidemia (Chronic) Irritable colon (Acute) Malignant neoplasm of female breast (Acute 02/17/93) S/P BILAT MASTECTOMY AND IMPLANTS right mastectomy; 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 Obesity (Acute) Pancolonic diverticulosis (Acute 07/14/16) Rhytides (Acute 05/31/16) 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) Fracture of distal fibula (Acute) 03/18/18 (L) [facility] Diaphoresis (Acute) Systolic dysfunction (Acute) Mitral regurgitation (Chronic) S/P cardiac cath (Acute) 02/14/19 [facility] Shortness of breath (Acute) Ear pain, right (Acute) Acute swimmer's ear of right side (Acute) Otitis externa in other diseases classified elsewhere, bilateral (Acute) Superficial mycosis (Acute) Chronic swimmer's ear of both sides (Acute) Chronic eczematous otitis externa of both ears (Acute) Restless leg syndrome (Acute) Adjustment disorder with depressed mood (Acute) Hypertension (Chronic) Syncope (Chronic) Headache (Acute) Low blood sugar (Acute) Closed fracture of distal ends of left radius and ulna (Acute 09/17/21) Ankle weakness (Acute) Medical History Breast cancer Constipation DM (diabetes mellitus) GERD (gastroesophageal reflux disease) Rheumatic fever Surgical History breast reconstruction 03/30 08/28 Breast, Mastectomy right 2009 left Cholecystectomy (~04/2009) Colonoscopy - MAC (07/14/16) 01/26- Venkat Gonzalez EGD - MAC 06/2015-Dr. Baker- GERD Family History Mother , AGE 72 Depression Father , AGE 87 Diabetes Heart disease Sister Stroke Brother Diabetes Essential hypertension Heart disease s/p CABG Hypercholesteremia Skin cancer COPD (chronic obstructive pulmonary disease) Maternal Grandfather , AGE 64 Heart disease Cancer Paternal Grandfather , age 64 Heart disease Maternal Grandmother , AGE 62 Uterine cancer Paternal Grandmother , CHILDBIRTH at age 19. No problems noted. 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 who is total care) Details: daughter is diasabled from childhood due to brain cancer, stroke 07/07 Household members: spouse and children Housing: house Communication Needs: None Do you need help understanding health information?: Rarely Pets and animals: Yes Pets and animals: cat(s) Sexually active: No Do you think of yourself as: straight/heterosexual Current gender identity: female What is your relationship status?: How often do you talk on the phone with friends or family?: twice per week How often do you get together with friends or relatives?: once per week How often do you attend jehovah's witness or restorationism services?: decline to answer Do you belong to any clubs or organized social groups?: no Panel score (0-1 are the most socially isolated patients): 2 What type of physical activity do you participate in: none Antonia/Lutheran: Denominational Special antonia needs: No Seatbelt use: always Drive intox or ride w/intox driver/guide: No Do you feel safe at home: Yes Do you feel safe in your relationship?: Yes Exam Narrative Exam Narrative: The patient was not interviewed or examined Results Last Vital Signs Temp 36.1 C L 07/08/22 07:06 Pulse 58 L 07/08/22 07:01 Resp 14 07/08/22 07:05 BP 116/54 L 07/08/22 07:01 Pulse Ox 96 07/08/22 07:05 Labs 07/07/22 18:47 07/08/22 05:25 Labs: Laboratory Results - last 24 hr 07/07/22 07/07/22 07/07/22 18:47 18:47 20:18 WBC 6.93 RBC 3.76 L Hgb 11.1 L Hct 32.4 L MCV 86 MCH 29.5 MCHC 34.3 RDW 13.1 Plt Count 202 MPV 10.2 Immature Gran % 0.1 Neutrophils % 62.4 Lymphocytes % 25.1 Monocytes % 9.5 Eosinophils % 1.9 Basophils % 1.0 Nucleated RBC % 0.0 Absolute Neutrophils 4.32 Absolute Lymphocytes 1.74 Absolute Monocytes 0.66 Absolute Eosinophils 0.13 Absolute Basophils 0.07 Sodium 141 Potassium 3.5 Chloride 106 Carbon Dioxide 23.9 Anion Gap 11.1 H BUN 16 Creatinine 1.1 H Est GFR (CKD-EPI 2020) 51.75 Glucose 180 H Calcium 8.7 Magnesium 1.8 Total Bilirubin 0.5 AST 17 ALT 20 Alkaline Phosphatase 67 Troponin I < 50 Total Protein 6.2 L Albumin 3.3 L COVID-19 Source Nasal/Nares SARS-CoV-2 (PCR) Negative 07/07/22 07/08/22 21:22 05:25 WBC RBC Hgb Hct MCV MCH MCHC RDW Plt Count MPV Immature Gran % Neutrophils % Lymphocytes % Monocytes % Eosinophils % Basophils % Nucleated RBC % Absolute Neutrophils Absolute Lymphocytes Absolute Monocytes Absolute Eosinophils Absolute Basophils Sodium 141 Potassium 3.6 Chloride 105 Carbon Dioxide 27.8 Anion Gap 8.2 BUN 12 Creatinine 0.9 Est GFR (CKD-EPI 2020) 65.84 Glucose 100 Calcium 8.6 Magnesium Total Bilirubin AST ALT Alkaline Phosphatase Troponin I < 50 Total Protein Albumin COVID-19 Source SARS-CoV-2 (PCR)
[2022-07-08] MEDS: metFORMIN 500 MG TAB 250 MG PO (10:53)
--- NOTE | 2022-07-08 16:45 | CHAPLAIN ---
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 She said she had to stop volunteering when her daughter had a stroke. Cindy and her care for their daughter at home. Cindy said she's waiting to see if she'll be transferred to [facility] for a pacemaker. Although she knows inserting pacemakers happens fairly routinely these days, she said it still seems like a big decision. She said she was experiencing dizziness and fainting spells and then all of a sudden they're talking about a pacemaker. Her 's advice was to follow the advice of medical team.
--- NOTE | 2022-07-08 18:05 | DSE_ITS ---
Date of service: 07/08/22 Time of Service: 18:05 DS: Diagnosis Discharge Diagnosis (1) Syncope: Status: Chronic Asessment and Plan: secondary to Mobitz type I AV block (2) Mobitz (type) I (Wenckebach's) atrioventricular block: Status: Acute (3) Right bundle branch block: Status: Acute (4) Nonischemic cardiomyopathy: Status: Chronic Asessment and Plan: patient was ruled out for ACS w/ serial negative troponin I levels. Patient had prior heart cath [place] [address] Siobhan Weller of [facility] which reportedly did not show any hemodynamically signficant CAD and reportedly showed normal right heart pressures. Discharge Plan Disposition Patient Disposition: Transfer-Acute Inpatient Care Specific Acute In Facility: [facility] Condition: Stable Discharge Details Reason For Visit: Syncope Admit Date/Time: 07/07/22 20:08 Admit Provider: Ko Ritter Attending Provider: Ko Ritter Primary Care Provider: Wesly Ren Hospital Course Hospital Course: 77-year-old female with a past medical history of essential hypertension, mild mitral regurgitation, diabetes mellitus type 2,, hyperlipidemia, depression, breast cancer status postmastectomy, GERD, restless leg syndrome who was worked up for syncopal spells last year with a 48-hour Holter that showed no significant arrhythmias. She presents to the emergency department with 1 syncopal and 1 near syncopal spell that occurred at home. First episode occur red while she was sitting with a near syncopal spell and then passed. She describes a prodrome like a cloud coming at her with dimming of her vision. Second episode occurred while she was standing by the stove she was able to let her self down the floor as she felt it coming on but then her witnessed her lose consciousness. After the second episode she did have an episode of emesis and urine incontinence. Patient denied any antecedent chest pain palpitations headaches or vertigo prior to the episodes. Evaluation emergency room included EKG routine labs and a chest x-ray. Chest x- ray demonstrated cardiomegaly but no pleural effusions or infiltrates. EKG demonstrated sinus rhythm versus ectopic atrial bradycardia with rates of 58 bpm of note the P wave axis was -65 degrees. Patient has a right bundle branch block and a left anterior fascicular block and has voltage criteria for LVH. Nonspecific ST-T wave abnormalities were seen in the inferior leads. Patient was monitored overnight and was noted to have type I second-degree AV block, (Wenckebach block) associated w/ bradycardia in the 30's and w/ symptoms of near syncope. This occurred on the morning of 07/08/22. This led to cardiology consultation w/ Dr. Polanco, who agreed that the patient should be referred to EP for pacemaker. The patient has not been on any AV jeramie blocking drugs to cause her conduction abnormalities. [facility] transfer center was contacted and I discussed the patient's case w/ EP cost accounting clerk, Dr. Meghna Cole, who upon review of the patient's rhythym strips and EKG and discussion of the patient's history and presentation and recurrent syncopal spells associated w/ the 2nd degree AV block, she agreed the patient deserves a pacemaker and agreed to accept the patient for transfer. A bed became available at the end of the day and patient was tranferred to [facility] in hemodynamically stable condition. She did not require external pacer. Home Meds and New Rx's Prescriptions: Continued famotidine 20 mg tablet 20 mg PO BID PRN (Reason: stomach upset) Qty: 60 2RF pravastatin 40 mg tablet 40 mg PO HS Qty: 90 4RF Rx Instructions: 1 TAB DAILY psyllium husk [Metamucil] 0.4 gram capsule 0.4 g PO DAILY Shingrix (PF) 50 mcg/0.5 mL suspension for reconstitution 0.5 ml IM ONCE Qty: 1 1RF Rx Instructions: as a single dose metformin 500 mg tablet 250 - 500 mg PO BID Patient Comments: 05/04/22 states she takes 250 mg AM and 500 mg PM RH triamcinolone acetonide 0.1 % cream 1 applic topical DAILY PRN IBgard 90 mg capsule,delayed,extend.release 180 mg PO BID (DME) blood-glucose meter [Contour Next Glucose Meter] Kit See Rx Instructions .ROUTE .MEDSUPPLY Qty: 1 0RF Rx Instructions: As directed (DME) lancets [CareTouch Safety Lancets] 28 gauge misc See Rx Instructions .ROUTE .MEDSUPPLY Qty: 200 3RF Rx Instructions: test twice/day potassium chloride 10 mEq capsule, extended release 10 meq PO BID Qty: 180 3RF (DME) Contour Next Test Strips Strip See Rx Instructions .ROUTE .MEDSUPPLY Qty: 100 3RF Rx Instructions: test once/day ibuprofen 200 MG tablet 400 mg PO DAILY PRN PRN calcium carbonate-vitamin D2 600 mg calcium- 200 unit Tablet 1 tab PO QDAY Discharge Instructions Activity:: bedrest Equipment/Supplies:: No Equipment Needed Diet:: NPO Discharge Orders Discharge Orders: Discharge Order (Routine); Ordered 07/08/22 Ordered By: Venkat Nelson DS: Summary Time Spent with Patient providing and/or coordinating discharge services: Greater than 30 minutes Status at Discharge Functional status at discharge: independent ambulation Overall status at discharge: patient is not back to baseline Mental Status: mental status grossly normal Speech and Movement: speech and movement normal Mood: congruent mood Affect: normal affect Exam Narrative Exam Narrative: Rosanne sitting up in bed no acute distress alert and oriented person place time circumstance Neck is supple nontender no JVD normal carotid pulses no bruits Lungs are clear to auscultation Heart is regular no appreciable murmur rub or gallop and no thrill or heave. Abdomen soft nontender nondistended Extremities without edema Psych Mental Status: mental status grossly normal Speech and Movement: speech and movement normal Mood: congruent mood Affect: normal affect DS: Data Vitals/I&O Vitals and I&O: Vital Signs Temperature 36.8 C 07/08/22 13:15 Temperature Source Temporal Artery Scan 07/08/22 13:15 Pulse 58 L 07/08/22 16:08 Pulse Rhythm Regular 07/08/22 16:13 Pulse 64 07/08/22 17:00 Respiratory Rate 19 07/08/22 17:00 Respiratory Effort Normal 07/08/22 16:13 Respiratory Depth Normal 07/08/22 16:13 Respiratory Pattern Normal 07/08/22 16:13 Blood Pressure 137/66 07/08/22 16:08 Blood Pressure Mean 83 07/08/22 16:08 Blood Pressure Position Sitting 07/07/22 21:33 Pulse Oximetry 96 07/08/22 17:00 Oxygen Delivery Method Room Air 07/08/22 13:15 Oxygen Flow Rate 0 07/08/22 13:15 Pain Level 0 07/08/22 13:15 Intake & Output 07/07/22 07/08/22 07/08/22 23:59 11:59 23:59 Output Total 200 / 200 850 / 1250 400 / 1250 Balance -200 / -200 -850 / -1250 -400 / -1250 Weight 86.7 kg 86.3 kg Output: Urine 200 / 200 850 / 1250 400 / 1250 Other: Urine Color Yellow Yellow Yellow Urine Appearance Clear Clear Clear Urine Odor Normal Voiding Methods Bedside Commode Bedside Commode Bedside Commode Data Completed and Pending Completed studies during hospitalization [Text1]: Echocardiogram: Conclusion Normal left ventricular wall thickness and chamber size.? Estimated ejection fraction is 45 to 50%.? No segmental wall motion abnormalities are identified Right ventricle is normal in size, grossly normal and systolic function Both atria are normal in size Aortic valve is mildly sclerotic without stenosis or regurgitation Normal mitral valve with mild to moderate regurgitation Normal tricuspid valve with trace regurgitation.? Estimated right ventricular systolic pressure is normal at 21 mmHg Multiple EKG's Labs on day of discharge: Labs from last 24 hours 07/08/22 07/07/22 07/07/22 05:25 21:22 20:18 WBC RBC Hgb Hct MCV MCH MCHC RDW Plt Count MPV Immature Gran % Neutrophils % Lymphocytes % Monocytes % Eosinophils % Basophils % Nucleated RBC % Absolute Neutrophils Absolute Lymphocytes Absolute Monocytes Absolute Eosinophils Absolute Basophils Sodium 141 Potassium 3.6 Chloride 105 Carbon Dioxide 27.8 Anion Gap 8.2 BUN 12 Creatinine 0.9 Est GFR (CKD-EPI 2020) 65.84 Glucose 100 Calcium 8.6 Magnesium Total Bilirubin AST ALT Alkaline Phosphatase Troponin I < 50 Total Protein Albumin COVID-19 Source Nasal/Nares SARS-CoV-2 (PCR) Negative 07/07/22 07/07/22 18:47 18:47 WBC 6.93 RBC 3.76 L Hgb 11.1 L Hct 32.4 L MCV 86 MCH 29.5 MCHC 34.3 RDW 13.1 Plt Count 202 MPV 10.2 Immature Gran % 0.1 Neutrophils % 62.4 Lymphocytes % 25.1 Monocytes % 9.5 Eosinophils % 1.9 Basophils % 1.0 Nucleated RBC % 0.0 Absolute Neutrophils 4.32 Absolute Lymphocytes 1.74 Absolute Monocytes 0.66 Absolute Eosinophils 0.13 Absolute Basophils 0.07 Sodium 141 Potassium 3.5 Chloride 106 Carbon Dioxide 23.9 Anion Gap 11.1 H BUN 16 Creatinine 1.1 H Est GFR (CKD-EPI 2020) 51.75 Glucose 180 H Calcium 8.7 Magnesium 1.8 Total Bilirubin 0.5 AST 17 ALT 20 Alkaline Phosphatase 67 Troponin I < 50 Total Protein 6.2 L Albumin 3.3 L COVID-19 Source SARS-CoV-2 (PCR) PFSH All Active Problems Right bundle branch block (Acute) Mobitz (type) I (Wenckebach's) atrioventricular block (Acute) Syncope (Chronic) Nonischemic cardiomyopathy (Chronic) Hyperacusis, bilateral (Acute) Sensorineural hearing loss, bilateral (Acute) Headache (Acute) Nasal congestion (Acute) Depressive disorder (Acute) Diabetes mellitus (Chronic 09/15/12) labs reviewed Gastroesophageal reflux disease (Acute) EGD 2005 normal Hyperlipidemia (Chronic) Irritable colon (Acute) Malignant neoplasm of female breast (Acute 02/17/93) S/P BILAT MASTECTOMY AND IMPLANTS right mastectomy; 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 Obesity (Acute) Pancolonic diverticulosis (Acute 07/14/16) Rhytides (Acute 05/31/16) 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) Fracture of distal fibula (Acute) 03/18/18 (L) [facility] Diaphoresis (Acute) Systolic dysfunction (Acute) Mitral regurgitation (Chronic) S/P cardiac cath (Acute) 02/14/19 [facility] Shortness of breath (Acute) Ear pain, right (Acute) Acute swimmer's ear of right side (Acute) Otitis externa in other diseases classified elsewhere, bilateral (Acute) Superficial mycosis (Acute) Chronic swimmer's ear of both sides (Acute) Chronic eczematous otitis externa of both ears (Acute) Restless leg syndrome (Acute) Adjustment disorder with depressed mood (Acute) Hypertension (Chronic) Syncope (Chronic) Headache (Acute) Low blood sugar (Acute) Closed fracture of distal ends of left radius and ulna (Acute 09/17/21) Ankle weakness (Acute) Medical History Breast cancer Constipation DM (diabetes mellitus) GERD (gastroesophageal reflux disease) Rheumatic fever Surgical History breast reconstruction 03/30 08/28 Breast, Mastectomy right 2009 left Cholecystectomy (~04/2009) Colonoscopy - MAC (07/14/16) 01/26- Venkat Gonzalez EGD - MAC 06/2015-Dr. Baker- [facility] Family History Mother , AGE 72 Depression Father , AGE 87 Diabetes Heart disease Sister Stroke Brother Diabetes Essential hypertension Heart disease s/p CABG Hypercholesteremia Skin cancer COPD (chronic obstructive pulmonary disease) Maternal Grandfather , AGE 64 Heart disease Cancer Paternal Grandfather , age 64 Heart disease Maternal Grandmother , AGE 62 Uterine cancer Paternal Grandmother , CHILDBIRTH at age 19. No problems noted. 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) Details: daughter is diasabled from childhood due to brain cancer, stroke 07/07 Household members: spouse and children Housing: house Communication Needs: None Do you need help understanding health information?: Rarely Pets and animals: Yes Pets and animals: cat(s) Sexually active: No Do you think of yourself as: straight/heterosexual Current gender identity: female What is your relationship status?: How often do you talk on the phone with friends or family?: twice per week How often do you get together with friends or relatives?: once per week How often do you attend restorationism or sabianist services?: decline to answer Do you belong to any clubs or organized social groups?: no Panel score (0-1 are the most socially isolated patients): 2 What type of physical activity do you participate in: none Antonia/Jew: Alevism Special antonia needs: No Seatbelt use: always Drive intox or ride w/intox automation driver: No Do you feel safe at home: Yes Do you feel safe in your relationship?: Yes Time Spent with Patient Time Spent with Patient: <45 minutes Time was spent: preparing to see the patient(eg.review tests), referring, communicating with other health director of managed care (calls to [facility] and discussion w/ Dr. Cole, completion of dc summary), indepentently interpreting results, counseling the patient and care coordination
[2022-07-08] MEDS: Normal Saline Flush 10 ML SYR (20:43)
== END 2022-07-08 21:05 | disposition short-term general hospital (02) | DRG 310 ==
LOC: ER 20:28 → ICU 07-08 09:43
PROVIDERS: Admitting Provider Family Medicine; Emergency Provider Emergency Medicine; PCP Family Medicine; Visit Provider Family Medicine
DX: I44.1 Atrioventricular block, second degree (principal); R55 Syncope and collapse; I42.8 Other cardiomyopathies; I45.2 Bifascicular block; R00.1 Bradycardia, unspecified; H90.3 Sensorineural hearing loss, bilateral; F32.A Depression, unspecified; E11.9 Type 2 diabetes mellitus without complications; K21.9 Gastro-esophageal reflux disease without esophagitis; E78.5 Hyperlipidemia, unspecified; E66.9 Obesity, unspecified; Z68.30 Body mass index [BMI] 30.0-30.9, adult; K57.30 Diverticulosis of large intestine without perforation or abscess without bleeding; I34.0 Nonrheumatic mitral (valve) insufficiency; G25.81 Restless legs syndrome; K59.00 Constipation, unspecified; Z85.3 Personal history of malignant neoplasm of breast; I10 Essential (primary) hypertension; Z79.84 Long term (current) use of oral hypoglycemic drugs
CPT/HCPCS: 36415; 80048; 80053; 87635; 93005; 93306; 99223; 99285; 71045; 83735; 84484; 85025; 93010; 99222; 99233; 99239

== ENCOUNTER → 2022-07-08 10:08 | Outpatient (BNVA) | payer MEDICARE, SELFPAY | PROVIDERS: PCP Family Medicine; Referring Provider Family Medicine; Visit Provider Internal Medicine Cardiovascular Disease ==

== ENCOUNTER 2022-12-23 21:23 | Outpatient (REF) | payer MEDICARE, SELFPAY ==
[2022-12-23 22:12] LABS: COMMENT (LAB VIEW ONLY) 177.16 mg/dL; Microalb ug/mg Crea 14.6 ug/mg Cr
== END 2022-12-23 21:24 | disposition home or self-care (01) ==
LOC: LBN 21:23
PROVIDERS: PCP Family Medicine; Visit Provider Family Medicine
DX: E11.9 Type 2 diabetes mellitus without complications (principal)
CPT/HCPCS: 82043; 82570

== ENCOUNTER 2023-02-24 04:36 | Outpatient (CLI) | payer MEDICARE, SELFPAY ==
--- OUTSIDE RECORDS SUMMARY | 2023-02-24 04:37 | XMS_ITS | Continuity of Care Document ---
Author Name Unknown Organization [facility] Ambulatory Clinics Address [address] [place] [address] Care Team Providers Care Medical Certification Specialist Name Role Phone Mikal LAZCANO, Wesly Primary Care Physician Taty vailable Encounter [facility] NBR [id number] Date(s): 01/03/22 - 01/03/22 [facility] Ambulatory Clinics [address] [place], [place] [address] Encounter Diagnosis Cellulitis of face(Discharge Diagnosis) - 01/03/22 Discharge Disposition: Home or Self Care Attending Physician: Brenda Rodriguez APRN Allergies, Adverse Reactions, Alerts Substance Reaction Severity Status sulfa drugs Moderate Active tetracyclines Mild Active Functional Status 01/03/22 Other exposure to Infectious Disease Non e Medications !-Keflex 500 mg oral capsule 500 mg = 1 cap, Oral, every 8 hr, X 7 days, # 21 cap, 0 Refill(s), 01/10/22 11:56:00 EDT, Pharmacy:[id number] Start Date: 01/03/22 Stop Date: 01/10/22 Status: Ordered escitalopram 20 mg oral tablet 20 mg = 1 tab, Oral, Daily, # 30 tab, 0 Refill(s) Start Date: 01/03/22 Status: Ordered famotidine 20 mg oral tablet 0 Refill(s) Start Date: 01/03/22 Status: Ordered metFORMIN 500 mg oral tablet 0 Refill(s) Start Date: 01/03/22 Status: Ordered potassium chloride 10 mEq oral capsule, extended release 0 Refill(s) Start Date: 01/03/22 Status: Ordered pravastatin 40 mg oral tablet 0 Refill(s) Start Date: 01/03/22 Status: Ordered traZODone 100 mg oral tablet 0 Refill(s) Start Date: 01/03/22 Status: Ordered triamcinolone 0.1% topical cream 0 Refill(s) Start Date: 01/03/22 Status: Ordered Vital Signs Most recent to oldest [Reference Range]: 1 Temperature Tympanic [36.6-37.9 Deg C] 3 6.4 Deg C *LOW* (01/03/22 11:13 AM) Peripheral Pulse Rate [60-100 bpm] 77 bp m (01/03/22 11:13 AM) Blood Pressure [90-140/60-90 mmHg] 137/6 4mmHg (01/03/22 11:13 AM) Weight 85 kg (01/03/22:13 AM) Weight Measured (lbs) 187.393 lb (01/03/22 11:13 AM) Height 170 cm (01/03/22:13 AM) Height/Length Measured (inches) 66.93 in ch (01/03/22 11:13 AM) BSA Measured 2 m2 (01/03/22:13 AM) Body Mass Index 29.41 kg/m2 (01/03/22 11:13 AM) Social History Social History Type Response Tobacco Never tobacco user T obacco Use:. Sex Hospital Discharge Instructions Patient Education 01/03/2022 10:59:12 Cellulitis, Adult Cellulitis, Adult Cellulitis is a skin infection. The infected area is usually warm, red, swollen, and tender. This condition occurs most often in the arms and lower legs. The infection can travel to the muscles, blood, and underlying tissue and become serious. It is very important to get treated for this condition. What are the causes? Cellulitis is caused by bacteria. The bacteria enter through a break in the skin, such as a cut, burn, insect bite, open sore, or crack. What increases the risk? This condition is more likely to occur in people who: ??? Have a weak body defense system (immune system). ??? Have open wounds on the skin, such as cuts, brooks, bites, and scrapes. Bacteria can enter the body through these open wounds. ??? Are older than 60 years of age. ??? Have diabetes. ??? Have a type of long-lasting (chronic) liver disease (cirrhosis) or kidney disease. ??? Are obese. ??? Have a skin condition such as: ??? Itchy rash (eczema). ??? Slow movement of blood in the veins (venous stasis). ??? Fluid buildup below the skin (edema). ??? Have had radiation therapy. ??? Use IV drugs. What are the signs or symptoms? Symptoms of this condition include: ??? Redness, streaking, or spotting on the skin. ??? Swollen area of the skin. ??? Tenderness or pain when an area of the skin is touched. ??? Warm skin. ??? A fever. ??? Chills. ??? Blisters. How is this diagnosed? This condition is diagnosed based on a medical history and physical exam. You may also have tests, including: ??? Blood tests. ??? Imaging tests. How is this treated? Treatment for this condition may include: ??? Medicines, such as antibiotic medicines or medicines to treat allergies (antihistamines). ??? Supportive care, such as rest and application of cold or warm cloths (compresses) to the skin. ??? Hospital care, if the condition is severe. The infection usually starts to get better within 1???2 days of treatment. Follow these instructions at home: Medicines ??? Take eukk-qoi-qoijfjw and prescription medicines only as told by your health care provider. ??? If you were prescribed an antibiotic medicine, take it as told by your health care provider. Donot stop taking the antibiotic even if you start to feel better. General instructions ??? Drink enough fluid to keep your urine pale yellow. ??? Do not touch or rub the infected area. ??? Raise (elevate) the infected area above the level of your heart while you are sitting or lying down. ??? Apply warm or cold compresses to the affected area as told by your health care provider. ??? Keep all follow-up visits as told by your health care provider. This is important. These visitslet your health care provider make sure a more serious infection is not developing. Contact a health care provider if: ??? You have a fever. ??? Your symptoms do not begin to improve within 1???2 days of starting treatment. ??? Your bone or joint underneath the infected area becomes painful after the skin has healed. ??? Your infection returns in the same area or another area. ??? You notice a swollen bump in the infected area. ??? You develop new symptoms. ??? You have a general ill feeling (malaise) with muscle aches and pains. Get help right away if: ??? Your symptoms get worse. ??? You feel very sleepy. ??? You develop vomiting or diarrhea that persists. ??? You notice red streaks coming from the infected area. ??? Your red area gets larger or turns dark in color. These symptoms may represent a serious problem that is an emergency. Do not wait to see if the symptoms will go away. Get medical help right away. Call your local emergency services (911 in the [place] Do not drive yourself to the hospital. Summary ??? Cellulitis is a skin infection. This condition occurs most often in the arms and lower legs. ??? Treatment for this condition may include medicines, such as antibiotic medicines or antihistamines. ??? Take cbjt-ebt-nsqgpsz and prescription medicines only as told by your health care provider. If you were prescribed an antibiotic medicine, do not stop taking the antibiotic even if you start to feel better. ??? Contact a health care provider if your symptoms do not begin to improve within 1???2 days of starting treatment or your symptoms get worse. ??? Keep all follow-up visits as told by your health care provider. This is important. These visitslet your health care provider make sure that a more serious infection is not developing. This information is not intended to replace advice given to you by your health care provider. Make sure you discuss any questions you have with your health care provider. Document Revised: 03/17/2020 Document Reviewed: 07/27/2018 [employer] Patient Education ?? 2021 [employer] 01/03/2022 10:59:03 Cellulitis, Adult Cellulitis, Adult Cellulitis is a skin infection. The infected area is usually warm, red, swollen, and tender. This condition occurs most often in the arms and lower legs. The infection can travel to the muscles, blood, and underlying tissue and become serious. It is very important to get treated for this condition. What are the causes? Cellulitis is caused by bacteria. The bacteria enter through a break in the skin, such as a cut, burn, insect bite, open sore, or crack. What increases the risk? This condition is more likely to occur in people who: ??? Have a weak body defense system (immune system). ??? Have open wounds on the skin, such as cuts, brooks, bites, and scrapes. Bacteria can enter the body through these open wounds. ??? Are older than 60 years of age. ??? Have diabetes. ??? Have a type of long-lasting (chronic) liver disease (cirrhosis) or kidney disease. ??? Are obese. ??? Have a skin condition such as: ??? Itchy rash (eczema). ??? Slow movement of blood in the veins (venous stasis). ??? Fluid buildup below the skin (edema). ??? Have had radiation therapy. ??? Use IV drugs. What are the signs or symptoms? Symptoms of this condition include: ??? Redness, streaking, or spotting on the skin. ??? Swollen area of the skin. ??? Tenderness or pain when an area of the skin is touched. ??? Warm skin. ??? A fever. ??? Chills. ??? Blisters. How is this diagnosed? This condition is diagnosed based on a medical history and physical exam. You may also have tests, including: ??? Blood tests. ??? Imaging tests. How is this treated? Treatment for this condition may include: ??? Medicines, such as antibiotic medicines or medicines to treat allergies (antihistamines). ??? Supportive care, such as rest and application of cold or warm cloths (compresses) to the skin. ??? Hospital care, if the condition is severe. The infection usually starts to get better within 1???2 days of treatment. Follow these instructions at home: Medicines ??? Take dajl-fwr-lmjvrzq and prescription medicines only as told by your health care provider. ??? If you were prescribed an antibiotic medicine, take it as told by your health care provider. Donot stop taking the antibiotic even if you start to feel better. General instructions ??? Drink enough fluid to keep your urine pale yellow. ??? Do not touch or rub the infected area. ??? Raise (elevate) the infected area above the level of your heart while you are sitting or lying down. ??? Apply warm or cold compresses to the affected area as told by your health care provider. ??? Keep all follow-up visits as told by your health care provider. This is important. These visitslet your health care provider make sure a more serious infection is not developing. Contact a health care provider if: ??? You have a fever. ??? Your symptoms do not begin to improve within 1???2 days of starting treatment. ??? Your bone or joint underneath the infected area becomes painful after the skin has healed. ??? Your infection returns in the same area or another area. ??? You notice a swollen bump in the infected area. ??? You develop new symptoms. ??? You have a general ill feeling (malaise) with muscle aches and pains. Get help right away if: ??? Your symptoms get worse. ??? You feel very sleepy. ??? You develop vomiting or diarrhea that persists. ??? You notice red streaks coming from the infected area. ??? Your red area gets larger or turns dark in color. These symptoms may represent a serious problem that is an emergency. Do not wait to see if the symptoms will go away. Get medical help right away. Call your local emergency services (911 in the [place] Do not drive yourself to the hospital. Summary ??? Cellulitis is a skin infection. This condition occurs most often in the arms and lower legs. ??? Treatment for this condition may include medicines, such as antibiotic medicines or antihistamines. ??? Take pozo-vvr-dzhxmad and prescription medicines only as told by your health care provider. If you were prescribed an antibiotic medicine, do not stop taking the antibiotic even if you start to feel better. ??? Contact a health care provider if your symptoms do not begin to improve within 1???2 days of starting treatment or your symptoms get worse. ??? Keep all follow-up visits as told by your health care provider. This is important. These visitslet your health care provider make sure that a more serious infection is not developing. This information is not intended to replace advice given to you by your health care provider. Make sure you discuss any questions you have with your health care provider. Document Revised: 03/17/2020 Document Reviewed: 07/27/2018 [employer] Patient Education ?? 2021 [employer] Patient Care team information Personnel Name: Wesly Ren MD
--- OUTSIDE RECORDS SUMMARY | 2023-02-24 04:38 | XMS_ITS | Continuity of Care Document ---
Author Name Unknown Organization [facility] Ambulatory Clinics Address [address] [place] [address] Care Team Providers Care Gravel Weigher Name Role Phone CHRIS REN MD Primary Care Physician Encounter [facility] NBR [id number] Date(s): 09/30/22 - 09/30/22 [facility] Ambulatory Clinics [address], [place] [address] Encounter Diagnosis GERD - Gastro-esophageal reflux disease(Discharge Diagnosis) - 09/30/22 IBS - Irritable bowel syndrome(Discharge Diagnosis) - 09/30/22 Discharge Disposition: Home or Self Care Attending Physician: Jessi Gutierrez APRN Allergies, Adverse Reactions, Alerts Substance Reaction Severity Status morphine nausea Moderate Active sulfa drugs Lip swelling Moderate Active tetracyclines Stomach ache Mild Active Functional Status 09/30/22 Other exposure to Infectious Disease Non e Medications Cymbalta 30 mg oral delayed release capsule 30 mg = 1 cap, Oral, Daily, do not crush or chew, # 30 cap, 3 Refill(s), Pharmacy: [id number], 167.64, cm, 07/19/22 10:45:00 EDT, Height/Length Dosing, 83.46, kg, 07/19/22 10:45:00 EDT, Weight Dosing Start Date: 08/04/22 Stop Date: 12/02/22 Status: Ordered metFORMIN 500 mg oral tablet 1.5 tabs, Oral, Daily, 0 Refill(s) Start Date: 01/03/22 Status: Ordered omeprazole 20 mg oral delayed release capsule 20 mg = 1 cap, Oral, BID, # 60 cap, 3 Refill(s), Pharmacy: [id number], 167.64, cm, 07/19/22 10:45:00 EDT, Height/Length Dosing, 83.46, kg, 07/19/22 10:45:00 EDT, Weight Dosing Start Date: 09/02/22 Stop Date: 12/31/22 Status: Ordered potassium chloride 10 mEq oral capsule, extended release 0 Refill(s) Start Date: 01/03/22 Status: Ordered pravastatin 40 mg oral tablet 0 Refill(s) Start Date: 01/03/22 Status: Ordered triamcinolone 0.1% topical cream 0 Refill(s) Start Date: 01/03/22 Status: Ordered Problem List Condition Confirmation Course Effective Dates Status H ealth Status Informant Abdominal pain Confirmed Active Bilateral cataracts Confirmed Active Breast cancer Confirmed Active Capsulitis 1 Confirmed Active Pacemaker Confirmed Active Cardiomyopathy, non-ischemic Confirmed Active Depressive disorder Confirmed Active Diverticulosis of colon without diverticulitis Confirmed Active DM - Diabetes mellitus Confirmed Active Dysphagia Confirmed Active GERD - Gastro-esophageal reflux disease Confirmed Active Hiatal hernia Confirmed Active Hyperlipidemia Confirmed Active IBS - Irritable bowel syndrome Confirmed Active Wenckebach second degree AV block Confirmed Active Obesity Confirmed Active Rhytides Confirmed Active Rhytidosis facialis Confirmed Active RBBB Confirmed Active Schatzki ring Confirmed Active 1shoulder Procedures Procedure Date Related Diagnosis Body Site Status Esophagogastroduodenoscopy Biopsy 1 07/21/22 Completed Cardiac pacemaker procedure 2 07/08/22 Completed Colonoscopy 3 07/13/16 Completed Breast reconstruction 4 C ompleted Cardiac catheterization 5 Completed Cholecystectomy 6 Complet ed Colonoscopy 7 Completed EGD - Esophagogastroduodenoscopy 8 Completed Mastectomy of left breast 9 Completed Mastectomy of right breast 10 Com[facility] +08[facility]2009 5no stents placed 01/2019 [id number] 109/1996 Vital Signs Most recent to oldest [Reference Range]: 1 Temperature Temporal Artery [36-38 Deg C ] 35.8 Deg C *LOW* (09/30/22 2:33 PM) Apical Heart Rate [60-100 bpm] 85 bpm (09/30/22 2:33 PM) Blood Pressure [90-140/60-90 mmHg] 125/9 6mmHg (09/30/22 2:33 PM) Weight 82.6 kg (09/30/22 2:33 PM) Weight Measured (lbs) 182.102 lb (09/30/22 2:33 PM) [place] Body Weight Calculated 59.3 kg (09/30/22 2:33 PM) Height 167.64 cm (09/30/22 2:33 PM) Height/Length Measured (inches) 66 inch (09/30/22 2:33 PM) BSA Measured 1.96 m2 (09/30/22 2:33 PM) Body Mass Index 29.39 kg/m2 (09/30/22 2:33 PM) Social History Social History Type Response Tobacco Never tobacco user T obacco Use:. Sex Physician Outpatient Note * Jessi Gutierrez APRN W: PERFORM Event Display: Office Clinic Note Physician Authored Date: [id number] TALIA JONES I :1945 Age:77 years Sex:Female Visit Date:09/30/2022 Primary Care Physician: CHRIS REN MD Chief Complaint follow up IBS, abdominal pain and GERD History of Present Illness Patient is a 77-year-old female??here today at the request of Dr. Ren for irritable bowel syndrome.?? She is an established patient here today for follow- up of??GERD, hiatal hernia and irritablebowel syndrome. ??She has had??irritable bowel syndrome for many years.?? The last??couple years she has been using??IBDguard and Metamucil??and working well until??a couple months ago when she had increasing abdominal pain??and would go??in small amounts, [place] form 1??basically every day or every other day.? There are occasions she has??episodes of diarrhea??when she is able to go??goes maybe 6 or 7 times?? a day.?Increase Metamucil to help develop more side effects and more bloating. ??Did not have any change in bowel habits. ??She was having frequent bowel movements with MiraLAX. ??She has not tried senna. ??She continues to use IBDGuard.? Patient continues to complain of dyspepsia.?? She states??in regards to her abdominal pain and bloating??that has resolved. ??Her bowels are better.?? Feels better overall.?? Denies any dysphagia or,globus sensation and pyrosis.?? She wonders if she should take omeprazole 20 mg twice daily insteadof once daily.?? Cymbalta has provided relief. ?? Denies melena, hematochezia,??changes in weight or appetite.? Stools are [place] form??4. ??She feels much better with the use of IBD guard daily, probiotic and Metamucil.? She brings a copy of her last colonoscopy that was done in [address] Nicolas at [facility] which was normal. She also brings a copy of her endoscopy done in [address] Contreras that was also normal. ?? EGD done 07/21/2022 showed a 2 cm hiatal hernia??and a Schatzki ring that was dilated to 20 mm without disruption noted. ??No celiac disease or H. pylori infection.?? Mild reactive gastropathy and focal active inflammation noted??within the stomach. ??Eosinophil esophagitis and Rachel's esophagus??we re ruled out. ?? Does admit to being under a lot of stress. ?? Denies any family history of gastrointestinal cancers. Review of Systems Pertinent positives and negatives are discussed in HPI. Physical Exam Vitals & Measurements T:??35.8?C ??(Temporal Artery)?? HR:??85??(Apical)?? BP:??125/96?? SpO2:??96%?? HT:??167.64??cm?? WT:??82.6??kg?? BMI:??29.39?? BSA:??1.96?? General: Well-nourished well-developed??female??in no acute distress. HEENT: Head is normocephalic, trachea midline, and no cervical lymphadenopathy. Respiratory: Respirations are even and unlabored. ??Lungs are clear to auscultation. Cardiovascular: Regular rate and rhythm with S1 and S2. Abdomen: Positive bowel sounds x4 quadrants, no masses, no guarding, no tenderness. ??No hepatosplenomegaly. ??Abdomen is soft. Skin: Warm, dry, and pink. Neurological: Alert and oriented x3, speech is clear and gait is steady. Psychological: Pleasant, calm and cooperative. Assessment/Plan 1.??GERD - Gastro-esophageal reflux disease??K21.9 Symptoms improved but still present. ??Increase omeprazole to 20 mg twice daily??30 minutes before breakfast and supper.?? We discussed follow-up and patient prefers to follow-up on an as-needed basis.?? She will call in 6 to 8 weeks if her symptoms worsen or persist.?? She is advised to be called anytime she has any problems or concerns 2.??IBS - Irritable bowel syndrome??K58.9 With Cymbalta 30 mg daily. ??Plans are to continue the same. ??As above??will call as needed.?? Duefor next colonoscopy 2024. Orders: omeprazole 20 mg oral delayed release capsule, 20 mg = 1 cap, Oral, BID, # 60 cap, 3 Refill(s), Pharmacy: [id number], 167.64, cm, 07/19/22 10:45:00 EDT, Height/Length Dosing, 83.46, kg, 07/19/22 10:45:00 EDT, Weight Dosing Voice recognition software utilized which may result in minor thermal cutter hand error. Problem List/Past Medical History Ongoing Abdominal pain Bilateral cataracts Breast cancer Capsulitis Cardiomyopathy, non-ischemic Depressive disorder Diverticulosis of colon without diverticulitis DM - Diabetes mellitus Dysphagia GERD - Gastro-esophageal reflux disease Hiatal hernia Hyperlipidemia IBS - Irritable bowel syndrome Obesity Pacemaker RBBB Rhytides Rhytidosis facialis Schatzki ring Wenckebach second degree AV block Historical No qualifying data Procedure/Surgical History ???Esophagogastroduodenoscopy Biopsy (07/21/2022)???Cardiac pacemaker procedure (07/09/2022)???Colonoscopy (07/14/2016)???Breast reconstruction???Cardiac catheterization???Cholecystectomy???Colonoscopy???EGD - Esophagogastroduodenoscopy???Mastectomy of left breast???Mastectomy of right breast Medications Cymbalta 30 mg oral delayed release capsule, 30 mg= 1 cap, Oral, Daily, 3 refills metFORMIN 500 mg oral tablet, 1.5 tabs, Oral, Daily omeprazole 20 mg oral delayed release capsule, 20 mg= 1 cap, Oral, BID, 3 refills potassium chloride 10 mEq oral capsule, extended release pravastatin 40 mg oral tablet triamcinolone 0.1% topical cream Allergies morphine??(nausea) sulfa drugs??(Lip swelling) tetracyclines??(Stomach ache) Social History Alcohol Current, 1-2 times per month Electronic Cigarette/Vaping Electronic Cigarette Use: Never. Substance Use Never Tobacco Never tobacco user Tobacco Use:. Family History Diabetes mellitus: Father. Heart disease: Father and Grandfather (M). Liver disease: Mother. Uterine cancer: Grandmother (M). Family Member(s): ?? FATHER, at age: Unknown. Cause of : Family Member(s): ?? MOTHER, at age: Unknown. Cause of : Family Member(s): ?? GPARENT, at age: Unknown. Cause of : Family Member(s): ?? GPARENT, at age: Unknown. Cause of : Family Member(s): ?? GPARENT, at age: Unknown. Cause of : Electronically Signed on 09/30/22 02:59 PM Jessi Gutierrez APRN Patient Care team information Care Team Personnel Name: CHRIS REN MD Position: No Access Member Role: Primary Care Physician Address: Address: [address] [place] [phone] [facility] Care Team Related Persons Name: VIRAJ JONES Address: Home [address] [place] [phone] [facility]
--- OUTSIDE RECORDS SUMMARY | 2023-02-24 04:38 | XMS_ITS | Continuity of Care Document ---
Author Name Unknown Organization [facility] Ambulatory Clinics Address [address] [place] [address] Care Team Providers Care Associate Professor Of Criminal Justice Name Role Phone SARI LAZCANO, CHRIS Primary Care Physician Encounter [facility] NBR [id number] Date(s): 06/18/22 - 06/18/22 [facility] Ambulatory Clinics [address], [place] [address] Encounter Diagnosis IBS - Irritable bowel syndrome(Discharge Diagnosis) - 06/18/22 GERD - Gastro-esophageal reflux disease(Discharge Diagnosis) - 06/18/22 Dysphagia(Discharge Diagnosis) - 06/18/22 Discharge Disposition: Home or Self Care Attending Physician: Jessi Gutierrez APRN Allergies, Adverse Reactions, Alerts Substance Reaction Severity Status morphine nausea Moderate Active sulfa drugs Moderate Active tetracyclines Mild Active Functional Status 06/18/22 Other exposure to Infectious Disease Non e Medications escitalopram 20 mg oral tablet 20 mg = 1 tab, Oral, Daily, # 30 tab, 0 Refill(s) Start Date: 01/03/22 Status: Ordered famotidine 20 mg oral tablet 20 mg = 1 tab, Oral, PRN as needed, 0 Refill(s) Start Date: 01/03/22 Status: Ordered metFORMIN 500 mg oral tablet 1.5 tabs, Oral, Daily, 0 Refill(s) Start Date: 01/03/22 Status: Ordered omeprazole 40 mg oral delayed release capsule 40 mg = 1 cap, Oral, Daily, 30 minutes before breakfast, # 30 cap, 3 Refill(s), Pharmacy: [id number] Start Date: 06/18/22 Stop Date: 10/16/22 Status: Ordered potassium chloride 10 mEq oral [...] Effective Dates Status H ealth Status Informant Allergic rhinitis Confirmed Active Bilateral cataracts Confirmed Active Breast cancer Confirmed Active Capsulitis 1 Confirmed Active Depressive disorder Confirmed Active Diverticulosis of colon without diverticulitis Confirmed Active DM - Diabetes mellitus Confirmed Active Dysphagia Confirmed Active GERD - Gastro-esophageal reflux disease Confirmed Active Hyperlipidemia Confirmed Active IBS - Irritable bowel syndrome Confirmed Active Obesity Confirmed Active Rhytides Confirmed Active Rhytidosis facialis Confirmed Active 1shoulder Procedures Procedure Date Related Diagnosis Body Site Status Colonoscopy 1 07/13/16 Completed Breast reconstruction 2 C ompleted Cardiac catheterization 3 Completed Cholecystectomy 4 Complet ed Colonoscopy 5 Completed EGD - Esophagogastroduodenoscopy 6 Completed Mastectomy of left breast 7 Completed Mastectomy of right breast [address]Dr[address] Andreina +08/2009 3no stents placed 01/2019 [id number] Vital Signs Most recent to oldest [Reference Range]: 1 Temperature Temporal Artery [36-38 Deg C ] 36.8 Deg C (06/18/22 9:49 AM) Peripheral Pulse Rate [60-100 bpm] 74 bp m (06/18/22 9:49 AM) Blood Pressure [90-140/60-90 mmHg] 122/7 8mmHg (06/18/22 9:49 AM) Weight 86.7 kg (06/18/22 9:49 AM) Weight Measured (lbs) 191.141 lb (06/18/22 9:49 AM) [place] Body Weight Calculated 59.3 kg (06/18/22 9:49 AM) Height 167.64 cm (06/18/22 9:49 AM) Height/Length Measured (inches) 66 inch (06/18/22 9:49 AM) BSA Measured 2.01 m2 (06/18/22 9:49 AM) Body Mass Index 30.85 kg/m2 (06/18/22 9:49 AM) Social History Social History Type Response Tobacco Never tobacco user T obacco Use:. Sex Physician Outpatient Note * Jessi Gutierrez, BLADE GRADER OPERATOR: PERFORM Event Display: Office Clinic Note Physician Authored Date: [id number] TALIA JONES Paul :1945 Age:77 years Sex:Female Visit Date:06/18/2022 Primary Care Physician: CHRIS GUO MD Chief Complaint follow up IBS-C History of Present Illness Patient is a 77-year-old female??here today at the request of Dr. Hilario for irritable bowel syndrome.?? She is an established patient.?She was last seen on 02/07/2020. ??She has had??irritable bowel syndrome for many years.?? The last??couple years she has been using??IBgard and Metamucil??andworking well until??a couple months ago when she had increasing abdominal pain??and would go??in small amounts, [place] form 1??basically every day or every other day.? There are occasions she has??episodes of diarrhea??when she is able to go??goes maybe 6 or 7 times for 1 day and then??have??[place] form 1 stools again.?? Recently she has been having??nausea and she is having pyrosis and dyspepsia. ??She is taking Pepcid 20 mg??as needed without relief. ??She is not taking this on a daily basis though she reports pyrosis almost on a daily basis. ??She has had this for over 5 years.?? Recently she is??had dysphagia??for solids. ??Denies any with liquids.?? Denies any melena or hematochezia. ??Her weight and appetite are stable. ?? She brings a copy of her last colonoscopy that was done in [address] Nicolas at [facility] which was normal. She also brings a copy of her endoscopy done in [address] Contreras that was also normal. ?? She has not been using any laxatives at this time. ?? Denies any family history of gastrointestinal cancers. Review of Systems General: Denies malaise or fatigue. HEENT: Denies globus sensation.?? Complains of dysphagia??solids without food bolus impactions. Respiratory: Denies shortness of breath, cough, or wheeze. Cardiovascular: Denies chest pain, palpitations, lightheadedness, dizziness, syncope or peripheral edema. ?? Abdomen:??Complains of abdominal cramping,??constipation??with infrequent diarrhea,??pyrosis and dyspepsia.?? Complains of bloating.?? Has nausea. ??Denies vomiting. ??Denies any melena or hematochezia.?? Denies any issues with weight loss??or changes in appetite. Skin: Denies rashes or lesions. Neurological: Denies any problems with gait or balance. Physical Exam Vitals & Measurements T:??36.8?C ??(Temporal Artery)?? HR:??74??(Peripheral)?? BP:??122/78?? SpO2:??94%?? HT:??167.64??cm?? WT:??86.7??kg?? BMI:??30.85?? BSA:??2.01?? General: Well-nourished well-developed??female??in no acute distress. HEENT: Head is normocephalic, trachea midline, and no cervical lymphadenopathy. Respiratory: Respirations are even and unlabored. ??Lungs are clear to auscultation. Cardiovascular: Regular rate and rhythm with S1 and S2.?A??I-II/ systolic ejection murmur best heard at the right second costal space is appreciated. Abdomen: Positive bowel sounds x4 quadrants, no masses, no guarding, no tenderness. ??No hepatosplenomegaly. ??Abdomen is soft. Skin: Warm, dry, and pink. Neurological: Alert and oriented x3, speech is clear and gait is steady. Psychological: Pleasant, calm and cooperative. Assessment/Plan 1.??IBS - Irritable bowel syndrome??K58.9 Recommend patient use MiraLAX 17 grams in 8 ounces of fluid on a daily basis. ??Continue high-fiberdiet. ??She can continue to use IBD??guard??and Metamucil??as well.?? Once patient's??bowels are ivan regular basis will consider colonoscopy. 2.??GERD - Gastro-esophageal reflux disease??K21.9 Start omeprazole 40 mg 30 minutes before evening meal. ??Discussed reflux triggering foods and beverages to avoid, to avoid eating 3 hours before bedtime and to eat small frequent meals. 3.??Dysphagia??R13.10 EGD as she has had??dysphagia of solids. ??Assess for mucosal injury, inflammation, stricture,??Schatzki ring, eosinophil esophagitis,??and Rachel's esophagus.?? Assess for H. pylori infection.?? I will see patient 2 weeks following EGD to discuss findings and make further recommendations.?Willneed to get clearance from Dr. Polanco at [facility]??she sees her for cardiology prior to scheduling. Orders: omeprazole 40 mg oral delayed release capsule, 40 mg = 1 cap, Oral, Daily, 30 minutes before breakfast, # 30 cap, 3 Refill(s), Pharmacy: [id number] Voice recognition software utilized which may result in minor vehicle return associate error. Problem List/Past Medical History Ongoing Allergic rhinitis Bilateral cataracts Breast cancer Capsulitis Depressive disorder Diverticulosis of colon without diverticulitis DM - Diabetes mellitus Dysphagia GERD - Gastro-esophageal reflux disease Hyperlipidemia IBS - Irritable bowel syndrome Obesity Rhytides Rhytidosis facialis Historical No qualifying data Procedure/Surgical History ???Colonoscopy (07/14/2016)???Breast reconstruction???Cardiac catheterization???Cholecystectomy???Colonoscopy???EGD - Esophagogastroduodenoscopy???Mastectomy of left breast???Mastectomy of right breast Medications escitalopram 20 mg oral tablet, 20 mg= 1 tab, Oral, Daily famotidine 20 mg oral tablet, 20 mg= 1 tab, Oral, PRN metFORMIN 500 mg oral tablet, 1.5 tabs, Oral, Daily omeprazole 40 mg oral delayed release capsule, 40 mg= 1 cap, Oral, Daily, 3 refills potassium chloride 10 mEq oral capsule, extended release pravastatin 40 mg oral tablet traZODone 100 mg oral tablet triamcinolone 0.1% topical cream Allergies morphine??(nausea) sulfa drugs tetracyclines Social History Alcohol Current, 1-2 times per [...] Unknown. Cause of : Electronically Signed on 06/18/22 10:42 AM Jessi Gutierrez APRN Patient Care team information Care Team Personnel Name: CHRIS GUO MD Position: No Access Member Role: Primary Care Physician Address: Address: [address] [place] [phone] [facility] Care Team Related Persons Name: VIRAJ JONES Address: Home [address] [place] [phone] [facility]
--- OUTSIDE RECORDS SUMMARY | 2023-02-24 04:38 | XMS_ITS | Continuity of Care Document ---
Author Name Unknown Organization [facility] Ambulatory Clinics Address [address] [place] [address] Care Team Providers Care Coat Repair Inspector Name Role Phone SARI LAZCANO, CHRIS Primary Care Physician Encounter [facility] NBR [id number] Date(s): 08/04/22 - 08/04/22 [facility] Ambulatory Clinics [address] [place], [place] [address] Encounter Diagnosis GERD - Gastro-esophageal reflux disease(Discharge Diagnosis) - 08/04/22 IBS - Irritable bowel syndrome(Discharge Diagnosis) - 08/04/22 Hiatal hernia(Discharge Diagnosis) - 08/04/22 Schatzki ring(Discharge Diagnosis) - 08/04/22 Discharge Disposition: Home or Self Care Attending Physician: Jessi Gutierrez APRN Allergies, Adverse Reactions, Alerts Substance Reaction Severity Status morphine nausea Moderate Active sulfa drugs Lip swelling Moderate Active tetracyclines Stomach ache Mild Active Assessment and Plan Future Appointments Functional Status 08/04/22 Other exposure to Infectious Disease Non e Medications Cymbalta 30 mg oral delayed release capsule 30 mg = 1 cap, Oral, Daily, do not crush or chew, # 30 cap, 3 Refill(s), Pharmacy: [facility][id number], 167.64, cm, 07/19/22 10:45:00 EDT, Height/Length Dosing, 83.46, kg, 07/19/22 10:45:00 EDT, Weight Dosing Start Date: 08/04/22 Stop Date: 12/02/22 Status: Ordered metFORMIN 500 mg oral tablet 1.5 tabs, Oral, Daily, 0 Refill(s) Start Date: 01/03/22 Status: Ordered omeprazole 40 mg oral delayed release capsule 40 mg = 1 cap, Oral, Daily, 30 minutes before breakfast, # 30 cap, 3 Refill(s), Pharmacy: [id number] Start Date: 06/18/22 Stop Date: 10/16/22 Status: Ordered potassium chloride 10 mEq oral capsule, extended release 0 Refill(s) Start Date: 01/03/22 Status: Ordered pravastatin 40 mg oral tablet 0 Refill(s) Start Date: 01/03/22 Status: Ordered triamcinolone 0.1% topical cream 0 Refill(s) Start Date: 01/03/22 Status: Ordered Problem List Condition Confirmation Course Effective Dates Status H ealth Status Informant Bilateral cataracts Confirmed Active Breast cancer Confirmed Active Capsulitis 1 Confirmed Active Cardiomyopathy, non-ischemic Confirmed Active Depressive [...] 10 Completed 1auto-populated from documented surgical case [id number] 3Dr. Andreina +08/2009 5no stents placed 01/2019 09163 109/1996 Vital Signs Most recent to oldest [Reference Range]: 1 Temperature Temporal Artery [36-38 Deg C ] 36.7 Deg C (08/04/22 1:29 PM) Apical Heart Rate [60-100 bpm] 93 bpm (08/04/22 1:29 PM) Blood Pressure [90-140/60-90 mmHg] 114/7 0mmHg (08/04/22 1:29 PM) Weight 84 kg (08/04/22 1:29 PM) Weight Measured (lbs) 185.188 lb (08/04/22 1:29 PM) [place] Body Weight Calculated 59.3 kg (08/04/22 1:29 PM) Height 167.64 cm (08/04/22 1:29 PM) Height/Length Measured (inches) 66 inch (08/04/22 1:29 PM) BSA Measured 1.98 m2 (08/04/22 1:29 PM) Body Mass Index 29.89 kg/m2 (08/04/22 1:29 PM) Social History Social History Type Response Tobacco Never tobacco user T obacco Use:. Sex Physician Outpatient Note * Jessi Gutierrez APRN W: PERFORM Event Display: Office Clinic Note Physician Authored Date: [id number] TALIA JONES Paul :1945 Age:77 years Sex:Female Visit Date:08/04/2022 Primary Care Physician: CHRIS GUO MD Chief Complaint follow up EGD History of Present Illness Patient is a 77-year-old female??here today at the request of Dr. Hilario for irritable bowel syndrome.?? She is an established patient here today for follow- up of??EGD.?She has had??irritable bowel syndrome for many years.?? The last??couple years she has been using??IBDguard and Metamucil??andworking well until??a couple months ago when she had increasing abdominal pain??and would go??in small amounts, [employer] form 1??basically every day or every other day.? There are occasions she has??episodes of diarrhea??when she is able to go??goes maybe 6 or 7 times?? a day.?Increase Metamucil to help develop more side effects and more bloating. ??Did not have any change in bowel habits. ??She was having frequent bowel movements with MiraLAX. ??She has not tried senna. ??She continues touse IBDGuard.? She states??dysphagia has resolved however has??pain??with swallowing and complains of globus sensation after eating. ??She switched taking omeprazole to 40 mg 30 minutes before evening meal however feels that worsened her symptoms. ??Denies pyrosis or dyspepsia. ??Denies any nausea or vomiting.? Denies melena, hematochezia,??changes in weight or appetite.? She brings a copy of her last colonoscopy that was done in [address] Nicolas at [facility] which was normal. She also brings a [...] in HPI. Physical Exam Vitals & Measurements T:??36.7?C ??(Temporal Artery)?? HR:??93??(Apical)?? BP:??114/70?? SpO2:??97%?? HT:??167.64??cm?? WT:??84??kg?? BMI:??29.89?? BSA:??1.98?? General: Well-nourished well-developed??female??in no acute distress. HEENT: [...] cooperative. Assessment/Plan 1.??GERD - Gastro-esophageal reflux disease??K21.9 Discussed findings EGD showing a 2 cm hiatal hernia??and Schatzki ring that was dilated to 20 mm without disruption noted.?? There was mild reactive gastropathy and focal active inflammation seen. ??No celiac disease or H. pylori infection. ??No eosinophil esophagitis or Rachel's esophagus.?? Having more symptoms with omeprazole in the evening. ??Advised to switch back to??30 mg before??breakfast. ??See patient back in 4 weeks to reassess. 2.??IBS - Irritable bowel syndrome??K58.9 Patient continues to struggle with irritable bowel syndrome??with pain and??irregular bowels. ??Recommend trial of Cymbalta 30 mg daily. ??She is agreeable to this.?? Discussed using senna??once daily.?? MiraLAX has caused her to have diarrhea and Metamucil causes increased bloating.?? We discussedlow FODMAP diet which she has tried without relief.?? Will see patient back in 4 weeks to reassess.?? She is aware it may take this time to see relief from the medication. ??She is advised to call ifshe develops any depression or suicidal thoughts. 3.??Hiatal hernia??K44.9 As above. 4.??Schatzki ring??K22.2 As above. ??Dysphagia has resolved however continues with globus sensation. ??Change??timing of omeprazole as discussed above. Orders: Cymbalta 30 mg oral delayed release capsule, 30 mg = 1 cap, Oral, Daily, do not crush or chew, # 30cap, 3 Refill(s), Pharmacy: [id number], 167.64, cm, 07/19/22 10:45:00 EDT, Height/Length Dosing, 83.46, kg, 07/19/22 10:45:00 EDT, Weight Dosing Follow-up Appointment Request LT_SD, *Est. 09/01/22 +/- 4 days, Future Order, follow up GERD, dysphagia, and IBS, In Approximately, [facility] Gastroenterology Voice recognition software utilized which may result in minor quality control scientist error. Problem List/Past Medical History Ongoing Bilateral cataracts Breast cancer Capsulitis Cardiomyopathy, non-ischemic Depressive disorder Diverticulosis of colon without diverticulitis DM - Diabetes mellitus Dysphagia GERD - Gastro-esophageal reflux disease Hiatal hernia Hyperlipidemia IBS - Irritable bowel syndrome Obesity RBBB Rhytides Rhytidosis facialis Schatzki ring [place] [...] Unknown. Cause of : Electronically Signed on 08/04/22 02:27 PM Jessi Gutierrez APRN Patient Care team information Care Team Personnel Name: CHRIS GUO MD Position: No Access Member Role: Primary Care Physician Address: Address: [address] [place] [id number] [facility] Care Team Related Persons Name: VIRAJ JONES Address: Home [address] [place], [place] [phone] [facility]
--- OUTSIDE RECORDS SUMMARY | 2023-02-24 04:38 | XMS_ITS | Continuity of Care Document ---
Author Name Unknown Organization [facility] Address [address] [place] [address] Care Team Providers Care Geothermal Operations Engineer Name Role Phone SARI LAZCANO, CHRIS Primary Care Physician Encounter [facility] NBR [id number] Date(s): 09/02/22 - 09/02/22 [facility] [address] [place] [address], [place] [address] Encounter Diagnosis Abdominal pain(Discharge Diagnosis) - 09/02/22 IBS - Irritable bowel syndrome(Discharge Diagnosis) - 09/02/22 GERD - Gastro-esophageal reflux disease(Discharge Diagnosis) - 09/02/22 Hiatal hernia(Discharge Diagnosis) - 09/02/22 Schatzki ring(Discharge Diagnosis) - 09/02/22 Irritable bowel syndrome without diarrhea(Final) - Gastro-esophageal reflux disease without esophagitis(Final) - Diaphragmatic hernia without obstruction or gangrene(Final) - Esophageal obstruction(Final) - Discharge Disposition: Home or Self Care Attending Physician: Jessi Gutierrez APRN Allergies, Adverse Reactions, Alerts Substance Reaction Severity Status morphine nausea Moderate Active sulfa drugs Lip swelling Moderate Active tetracyclines Stomach ache Mild Active Assessment and Plan Future Appointments Functional Status 09/02/22 Other exposure to Infectious Disease Non e Medications Cymbalta 30 mg oral delayed release capsule 30 mg = 1 cap, Oral, Daily, do not crush or chew, # 30 cap, 3 Refill(s), Pharmacy: [id number], 167.64, cm, 07/19/22 10:45:00 EDT, Height/Length Dosing, 83.46, kg, 07/19/22 10:45:00 EDT, Weight Dosing Start Date: 08/04/22 Stop Date: 12/02/22 Status: Ordered metFORMIN 500 mg oral tablet 1.5 tabs, Oral, Daily, 0 Refill(s) Start Date: 01/03/22 Status: Ordered omeprazole 20 mg oral delayed release capsule 20 mg = 1 cap, Oral, Daily, # 30 cap, 3 Refill(s), Pharmacy: [id number], 167.64, cm, 07/19/2309:45:00 EDT, Height/Length Dosing, 83.46, kg, 07/19/22 10:45:00 [...] 10 Completed 1auto-populated from documented surgical case [facility] 3Dr. Andreina +08/2009 5no stents placed 01/2019 [id number] 109/1996 Vital Signs Most recent to oldest [Reference Range]: 1 Temperature Temporal Artery [36-38 Deg C ] 35.9 Deg C *LOW* (09/02/22 1:28 PM) Apical Heart Rate [60-100 bpm] 81 bpm (09/02/22 1:28 PM) Blood Pressure [90-140/60-90 mmHg] 119/8 0mmHg (09/02/22 1:28 PM) Weight 83.1 kg (09/02/22 1:28 PM) Weight Measured (lbs) 183.204 lb (09/02/22 1:28 PM) Tracy Body Weight Calculated 59.3 kg (09/02/22 1:28 PM) Height 167.64 cm (09/02/22 1:28 PM) Height/Length Measured (inches) 66 inch (09/02/22 1:28 PM) BSA Measured 1.97 m2 (09/02/22 1:28 PM) Body Mass Index 29.57 kg/m2 (09/02/22 1:28 PM) Social History Social History Type Response Tobacco Never tobacco user T obacco Use:. Sex Physician Outpatient Note * Jessi Gutierrez APRN W: PERFORM Event Display: Office Clinic Note Physician Authored Date: [id number] TALIA JONES I :1945 Age:77 years Sex:Female Visit Date:09/02/2022 Primary Care Physician: CHRIS REN MD Chief Complaint follow up GERD, hiatal hernia, IBS History of Present Illness Patient is a [...] increasing abdominal pain??and would go??in small amounts, [place] form 1??basically every day or every other day.? There are occasions she has??episodes of diarrhea??when she is able to go??goes maybe 6 or 7 times?? a day.?Increase Metamucil to help develop more side effects and more bloating. ??Did not have any change in bowel habits. ??She was having frequent bowel movements with MiraLAX. ??She has not tried senna. ??She continues to use IBDGuard.? She states??dysphagia has resolved however has??pain??with swallowing and complains of globus sensation after eating. ??She switched taking omeprazole to 40 mg 30 minutes before evening meal however feels that worsened her symptoms. ??Denies pyrosis or dyspepsia. ??Denies any nausea or vomiting.? Denies melena, hematochezia,??changes in weight or appetite.? At last visit??patient is advised to continue omeprazole 40 mg 30 minutes before breakfast and start Cymbalta 30 mg daily. She was to continue??Senna once daily.?? She states earlier this week she stopped taking omeprazole and feels??better. ??She continues to complain of??sternal burning and burning. ??She has dyspnea with exertion.?? Has a globus sensation first in the morning that clears with coughing.?? She occasionally has right upper quadrant pain??but better than before. ??She states shehas 1-4 bowel movements daily that are [place] form 4.?? She feels much better with the use of IBD guard daily, probiotic and Metamucil.?? She try Cymbalta for a week??and then had 3 days that she cannot sleep. ?? She brings a copy of her last colonoscopy that was done in [address] Nicolas at [facility] which was normal. She also [...] in HPI. Physical Exam Vitals & Measurements T:??35.9?C ??(Temporal Artery)?? HR:??81??(Apical)?? BP:??119/80?? SpO2:??97%?? HT:??167.64??cm?? WT:??83.1??kg?? BMI:??29.57?? BSA:??1.97?? General: Well-nourished well-developed??female??in no acute distress. HEENT: [...] steady. Psychological: Pleasant, calm and cooperative. Assessment/Plan 1.??Abdominal pain??R10.9 Right upper quadrant pain has improved.?? Denies any other discomfort. ??Will continue to monitor. 2.??IBS - Irritable bowel syndrome??K58.9 Doing well with IBgard, probiotics and Metamucil daily. ??Cymbalta can cause insomnia.?? Plans are to continue the same. ??She is not yet due for colonoscopy for colon cancer screening.?? She is due in 2 years in 2024. 3.??GERD - Gastro-esophageal reflux disease??K21.9 Continues with??dyspepsia.?? Please start omeprazole 20 mg 20 minutes before breakfast. ??Reviewed reflux triggering foods and beverages to avoid,??avoid eating 3 hours before bedtime and eat small frequent meals.?? See patient back in 4 weeks to reassess. 4.??Hiatal hernia??K44.9 As above. 5.??Schatzki ring??K22.2 Denies any dysphagia at this time. ??Does have??globus sensation worse in the morning that clears with coughing. ??Offered ENT referral, she states she seen them in the past.?? She declines at this time. Orders: omeprazole 20 mg oral delayed release capsule, 20 mg = 1 cap, Oral, Daily, # 30 cap, 3 Refill(s), Pharmacy: [id number], 167.64, cm, 07/19/22 10:45:00 EDT, Height/Length Dosing, 83.46, kg, 07/19/22 10:45:00 EDT, Weight Dosing Follow-up Appointment Request [email or web address], *Est. 09/30/22 +/- 4 days, Future Order, f/u GERD, IBS, In Approximately, [facility] G[facility]enterology Voice recognition software utilized which may result in minor administrative clerk error. Problem List/Past Medical History Ongoing Abdominal [...] release capsule, 20 mg= 1 cap, Oral, Daily, 3 refills [...] Unknown. Cause of : Electronically Signed on 09/02/22 01:56 PM Jessi Gutierrez APRN Patient Care team information Care Team Personnel Name: CHRIS REN MD Position: No Access Member Role: Primary Care Physician Address: Address: [address] [place] [phone] [facility] Care Team Related Persons Name: VIRAJ JONES Address: Home [address] [place] [phone] [facility]
--- OUTSIDE RECORDS SUMMARY | 2023-02-24 04:38 | XMS_ITS | Continuity of Care Document ---
Author Name Unknown Organization [facility] Address [address] [place] [id number] Care Team Providers Care Journal Clerk Name Role Phone SARI LAZCANO, CHRIS Primary Care Physician [phone] Encounter [facility] NBR [id number] Date(s): 07/21/22 - 07/21/[address] [id number] Encounter Diagnosis Dysphagia(Discharge Diagnosis) - 07/21/22 GERD - Gastro-esophageal reflux disease(Discharge Diagnosis) - 07/21/22 Discharge Disposition: Home f/u External Provider Attending Physician: Renny Caro MD Admitting Physician: Renny Caro MD Allergies, Adverse Reactions, Alerts Substance Reaction Severity Status morphine nausea Moderate Active sulfa drugs Lip swelling Moderate Active tetracyclines Stomach ache Mild Active Assessment and Plan Future Appointments Functional Status 07/21/22 ADLs Independent Recent Travel History No recent travel Other exposure to Infectious Disease Non e 07/19/22 Living Situation Home independently Medications metFORMIN 500 mg oral tablet 1.5 tabs, Oral, Daily, 0 Refill(s) Start Date: 01/03/22 Status: Ordered omeprazole 40 mg oral delayed release capsule 40 mg = 1 cap, Oral, Daily, 30 minutes before breakfast, # 30 cap, 3 Refill(s), Pharmacy: [id number] Start Date: 06/18/22 Stop Date: 10/16/22 [...] Rhytidosis facialis Confirmed Active RBBB Confirmed Active 1shoulder Procedures Procedure Date Related [...] 10 Completed [facility] +08[facility]2009 5no stents placed 01/2019 57808 109/1995 Results Laboratory List Name Date Glucose POCT 07/21/22 Most recent to oldest [Reference Range]: 1 Glucose POC 157 *NA* (07/21/22 8:34 AM) Vital Signs Most recent to oldest [Reference Range]: 1 2 3 Temperature Temporal Artery [36-38 Deg C] 36 Deg C (07/21/22 10:30 AM) 36.6 Deg C (07/21/22 8:25 AM) Heart Rate Monitored [60-100 bpm] 68 bpm (07/21/22 10:50 AM) 67 bpm (07/21/22 10:47 AM) 68 bpm (07/21/22 10:42 AM) Respiratory Rate [12-24 br/min] 15 br/min (07/21/22 10:50 AM) 16 br/min (07/21/22 10:47 AM) 16 br/min (07/21/22 10:42 AM) Blood Pressure [90-140/60-90 mmHg] 129/65mmHg (07/21/22 10:50 AM) 127/66mmHg (07/21/22 10:47 AM) 120/63mmHg (07/21/22 10:39 AM) Blood Pressure Location Left arm (07/21/22 10:30 AM) Weight 83.460 kg (07/19/22 10:30 AM) Weight Dosing 83.460 kg (07/19/22 10:30 AM) Height 167.640 cm (07/19/22 10:30 AM) Height/Length Dosing 167.640 cm (07/19/22 10:30 AM) Social History Social History Type Response Tobacco Never tobacco user T obacco Use:. Sex Hospital Discharge Instructions Patient Education 07/21/2022 09:30:00 Gastroesophageal Reflux Disease, Adult Gastroesophageal Reflux Disease, Adult Gastroesophageal reflux (DELL) happens when acid from the stomach flows up into the tube that connects the mouth and the stomach (esophagus). Normally, food travels down the esophagus and stays in thestomach to be digested. However, when a person has DELL, food and stomach acid sometimes move back up into the esophagus. If this becomes a more serious problem, the person may be diagnosed with a disease called gastroesophageal reflux disease (GERD). GERD occurs when the reflux: ??? Happens often. ??? Causes frequent or severe symptoms. ??? Causes problems such as damage to the esophagus. When stomach acid comes in contact with the esophagus, the acid may cause inflammation in the esophagus. Over time, GERD may create small holes (ulcers) in the lining of the esophagus. What are the causes? This condition is caused by a problem with the muscle between the esophagus and the stomach (lower esophageal sphincter, or LES). Normally, the LES muscle closes after food passes through the esophagus to the stomach. When the LES is weakened or abnormal, it does not close properly, and that allowsfood and stomach acid to go back up into the esophagus. The LES can be weakened by certain dietary substances, medicines, and medical conditions, including: ??? Tobacco use. ??? . ??? Having a hiatal hernia. ??? Alcohol use. ??? Certain foods and beverages, such as coffee, chocolate, onions, and peppermint. What increases the risk? You are more likely to develop this condition if you: ??? Have an increased body weight. ??? Have a connective tissue disorder. ??? Take NSAIDs, such as ibuprofen. What are the signs or symptoms? Symptoms of this condition include: ??? Heartburn. ??? Difficult or painful swallowing and the feeling of having a lump in the throat. ??? A bitter taste in the mouth. ??? Bad breath and having a large amount of saliva. ??? Having an upset or bloated stomach and belching. ??? Chest pain. Different conditions can cause chest pain. Make sure you see your health care provider if you experience chest pain. ??? Shortness of breath or wheezing. ??? Ongoing (chronic) cough or a nighttime cough. ??? Wearing away of tooth enamel. ??? Weight loss. How is this diagnosed? This condition may be diagnosed based on a medical history and a physical exam. To determine if youhave mild or severe GERD, your health care provider may also monitor how you respond to treatment. You may also have tests, including: ??? A test to examine your stomach and esophagus with a small camera (endoscopy). ??? A test that measures the acidity level in your esophagus. ??? A test that measures how much pressure is on your esophagus. ??? A barium swallow or modified barium swallow test to show the shape, size, and functioning of your esophagus. How is this treated? Treatment for this condition may vary depending on how severe your symptoms are. Your health care provider may recommend: ??? Changes to your diet. ??? Medicine. ??? Surgery. The goal of treatment is to help relieve your symptoms and to prevent complications. Follow these instructions at home: Eating and drinking ??? Follow a diet as recommended by your health care provider. This may involve avoiding foods and drinks such as: ??? Coffee and tea, with or without caffeine. ??? Drinks that contain alcohol. ??? Energy drinks and sports drinks. ??? Carbonated drinks or sodas. ??? Chocolate and cocoa. ??? Peppermint and mint flavorings. ??? Garlic and onions. ??? Horseradish. ??? Spicy and acidic foods, including peppers, chili powder, to powder, vinegar, hot sauces, andbarbecue sauce. ??? Eupora fruit juices and citrus fruits, such as oranges, ana, and limes. ??? Tomato-based foods, such as red sauce, chili, salsa, and pizza with red sauce. ??? Fried and fatty foods, such as donuts, chilean fries, potato chips, and high- fat dressings. ??? High-fat meats, such as hot dogs and fatty cuts of red and white meats, such as rib eye steak, sausage, ham, and carranza. ??? High-fat dairy items, such as whole milk, butter, and cream cheese. ??? Eat small, frequent meals instead of large meals. ??? Avoid drinking large amounts of liquid with your meals. ??? Avoid eating meals during the 2???3 hours before bedtime. ??? Avoid lying down right after you eat. ??? Do not exercise right after you eat. Lifestyle ??? Do not use any products that contain nicotine or tobacco. These products include cigarettes, chewing tobacco, and vaping devices, such as e-cigarettes. If you need help quitting, ask your health care provider. ??? Try to reduce your stress by using methods such as yoga or meditation. If you need help reducing stress, ask your health care provider. ??? If you are overweight, reduce your weight to an amount that is healthy for you. Ask your healthcare provider for guidance about a safe weight loss goal. General instructions ??? Pay attention to any changes in your symptoms. ??? Take mftb-vjn-hwztcik and prescription medicines only as told by your health care provider. Do not take aspirin, ibuprofen, or other NSAIDs unless your health care provider told you to take thesemedicines. ??? Wear loose-fitting clothing. Do not wear anything tight around your waist that causes pressure on your abdomen. ??? Raise (elevate) the head of your bed about 6 inches (15 cm). You can use a wedge to do this. ??? Avoid bending over if this makes your symptoms worse. ??? Keep all follow-up visits. This is important. Contact a health care provider if: ??? You have: ??? New symptoms. ??? Unexplained weight loss. ??? Difficulty swallowing or it hurts to swallow. ??? Wheezing or a persistent cough. ??? A hoarse voice. ??? Your symptoms do not improve with treatment. Get help right away if: ??? You have sudden pain in your arms, neck, jaw, teeth, or back. ??? You suddenly feel sweaty, dizzy, or light-headed. ??? You have chest pain or shortness of breath. ??? You vomit and the vomit is green, yellow, or black, or it looks like blood or coffee grounds. ??? You faint. ??? You have stool that is red, bloody, or black. ??? You cannot swallow, drink, or eat. These symptoms may represent a serious problem that is an emergency. Do not wait to see if the symptoms will go away. Get medical help right away. Call your local emergency services (911 in the [place] Do not drive yourself to the hospital. Summary ??? Gastroesophageal reflux happens when acid from the stomach flows up into the esophagus. GERD paul disease in which the reflux happens often, causes frequent or severe symptoms, or causes problemssuch as damage to the esophagus. ??? Treatment for this condition may vary depending on how severe your symptoms are. Your health care provider may recommend diet and lifestyle changes, medicine, or surgery. ??? Contact a health care provider if you have new or worsening symptoms. ??? Take nmdg-vwh-dhhesyo and prescription medicines only as told by your health care provider. Do not take aspirin, ibuprofen, or other NSAIDs unless your health care provider told you to do so. ??? Keep all follow-up visits as told by your health care provider. This is important. This information is not intended to replace advice given to you by your health care provider. Make sure you discuss any questions you have with your health care provider. Document Revised: 09/15/2020 Document Reviewed: 09/15/2020 [employer] Patient Education ?? 2021 [employer]. 07/21/2022 09:29:58 Hiatal Hernia Hiatal Hernia A hiatal hernia occurs when part of the stomach slides above the muscle that separates the abdomen from the chest (diaphragm). A person can be born with a hiatal hernia (congenital), or it may develop over time. In almost all cases of hiatal hernia, only the top part of the stomach pushes through the diaphragm. Many people have a hiatal hernia with no symptoms. The larger the hernia, the more likely it is that you will have symptoms. In some cases, a hiatal hernia allows stomach acid to flow back into the tube that carries food from your mouth to your stomach (esophagus). This may cause heartburn symptoms. Severe heartburn symptoms may mean that you have developed a condition called gastroesophageal reflux disease (GERD). What are the causes? This condition is caused by a weakness in the opening (hiatus) where the esophagus passes through the diaphragm to attach to the upper part of the stomach. A person may be born with a weakness in thehiatus, or a weakness can develop over time. What increases the risk? This condition is more likely to develop in: ??? Older people. Age is a major risk factor for a hiatal hernia, especially if you are over the age of 50. ??? women. ??? People who are overweight. ??? People who have frequent constipation. What are the signs or symptoms? Symptoms of this condition usually develop in the form of GERD symptoms. Symptoms include: ??? Heartburn. ??? Belching. ??? Indigestion. ??? Trouble swallowing. ??? Coughing or wheezing. ??? Sore throat. ??? Hoarseness. ??? Chest pain. ??? Nausea and vomiting. How is this diagnosed? This condition may be diagnosed during testing for GERD. Tests that may be done include: ??? X-rays of your stomach or chest. ??? An upper gastrointestinal (GI) series. This is an X-ray exam of your GI tract that is taken after you swallow a chalky liquid that shows up clearly on the X-ray. ??? Endoscopy. This is a procedure to look into your stomach using a thin, flexible tube that has atiny camera and light on the end of it. How is this treated? This condition may be treated by: ??? Dietary and lifestyle changes to help reduce GERD symptoms. ??? Medicines. These may include: ??? Iazt-tyx-reltsnq antacids. ??? Medicines that make your stomach empty more quickly. ??? Medicines that block the production of stomach acid (H2 blockers). ??? Stronger medicines to reduce stomach acid (proton pump inhibitors). ??? Surgery to repair the hernia, if other treatments are not helping. If you have no symptoms, you may not need treatment. Follow these instructions at home: Lifestyle and activity ??? Do not use any products that contain nicotine or tobacco, such as cigarettes and e-cigarettes. If you need help quitting, ask your health care provider. ??? Try to achieve and maintain a healthy body weight. ??? Avoid putting pressure on your abdomen. Anything that puts pressure on your abdomen increases the amount of acid that may be pushed up into your esophagus. ??? Avoid bending over, especially after eating. ??? Raise the head of your bed by putting blocks under the legs. This keeps your head and esophagushigher than your stomach. ??? Do not wear tight clothing around your chest or stomach. ??? Try not to strain when having a bowel movement, when urinating, or when lifting heavy objects. Eating and drinking ??? Avoid foods that can worsen GERD symptoms. These may include: ??? Fatty foods, like fried foods. ??? Eupora fruits, like oranges or lemon. ??? Other foods and drinks that contain acid, like orange juice or tomatoes. ??? Spicy food. ??? Chocolate. ??? Eat frequent small meals instead of three large meals a day. This helps prevent your stomach from getting too full. ??? Eat slowly. ??? Do not lie down right after eating. ??? Do not eat 1???2 hours before bed. ??? Do not drink beverages with caffeine. These include cola, coffee, cocoa, and tea. ??? Do not drink alcohol. General instructions ??? Take knja-jdh-arbpinw and prescription medicines only as told by your health care provider. ??? Keep all follow-up visits as told by your health care provider. This is important. Contact a health care provider if: ??? Your symptoms are not controlled with medicines or lifestyle changes. ??? You are having trouble swallowing. ??? You have coughing or wheezing that will not go away. Get help right away if: ??? Your pain is getting worse. ??? Your pain spreads to your arms, neck, jaw, teeth, or back. ??? You have shortness of breath. ??? You sweat for no reason. ??? You feel sick to your stomach (nauseous) or you vomit. ??? You vomit blood. ??? You have bright red blood in your stools. ??? You have black, tarry stools. Summary ??? A hiatal hernia occurs when part of the stomach slides above the muscle that separates the abdomen from the chest (diaphragm). ??? A person may be born with a weakness in the hiatus, or a weakness can develop over time. ??? Symptoms of hiatal hernia may include heartburn, trouble swallowing, or sore throat. ??? Management of hiatal hernia includes eating frequent small meals instead of three large meals aday. ??? Get help right away if you vomit blood, have bright red blood in your stools, or have black, tarry stools. This information is not intended to replace advice given to you by your health care provider. Make sure you discuss any questions you have with your health care provider. Document Revised: 02/05/2021 Document Reviewed: 02/05/2021 [employer] Patient Education ?? 2021 [employer] Discharge instructions * Radha Hurst: PERFORM Event Display: Discharge Instructions Authored Date: [id number] TALIA JONES I :1945 Age:77 years Sex:Female Visit Date:07/21/2022 Primary Care Physician: SARI LAZCANO, [facility] Discharge Instructions We would like to thank you for allowing us to assist you with your healthcare needs. The following includes patient education materials and information regarding your injury/illness. Your Next Steps Discharge Orders Discharge Patient Instructions, You may experience some gas cramps and abdominal bloating Discharge Patient Instructions, Cramping and abdominal bloating should subside in 1 hour or so Discharge Patient Instructions, Passing gas rectally and belching is normal Discharge Patient Instructions, A light first meal may feel better in your stomach Discharge Patient Instructions, You may resume your normal activity in 24 hours Discharge Patient Instructions, It is important that a responsible adult drive you home today Discharge Patient Instructions, Do not sign any contracts, make any major decisions, or drive or operate machinery for 24 hours Discharge Patient Instructions, You should not be responsible for the care of others Discharge Patient Instructions, Avoid alcohol, tranquilizers, sleeping pills, or cold medicines for24 hours Discharge Patient Instructions, Call or come to emergency department if having unusual pain or severe abdominal pain Discharge Patient Instructions, Call or come to emergency department if vomiting blood or having black bowel movements, rectal bleeding or passing blood clots Discharge Patient Instructions, Call or come to emergency department for dizziness Discharge Patient Instructions, Call or come to emergency department chest pain, or shortness of breath Discharge Patient Instructions, Call or come to emergency department for fever greater than 100 ??F Discharge Patient Instructions, Call with any additional questions or concerns Scheduled Future Appointments Tuesday. 2022 1:30 PM EDT ?? With: Jessi Gutierrez APRN Where: [facility] Gastroenterology Status: Confirmed Medications What How Much When Instructions Next Dose Unchanged metFORMIN (metFORMIN 500 mg oral tablet) 1.5 tabs Oral (given by mouth) Every day Unchanged omeprazole (omeprazole 40 mg oral delayed release capsule) 1 Capsules Oral (given by mouth) Every day Duration: 30 Days 30 minutes before breakfast ?? Unchanged potassium chloride (potassium chloride 10 mEq oral capsule, extended release) Unchanged pravastatin (pravastatin 40 mg oral tablet) Unchanged triamcinolone topical (triamcinolone 0.1% topical cream) Your Summary Your Care Team Admitting Physician - Renny Caro MD Attending Physician - Renny Caro MD Primary Care Physician - CHRIS UGO MD Your Diagnosis Dysphagia GERD - Gastro-esophageal reflux disease Problems Ongoing - Any problem that you are currently receiving treatment for. Allergic rhinitis Bilateral cataracts Breast cancer Capsulitis Cardiomyopathy, non-ischemic Depressive disorder Diverticulosis of colon without diverticulitis DM - Diabetes mellitus Dysphagia GERD - Gastro-esophageal reflux disease Hyperlipidemia IBS - Irritable bowel syndrome Obesity RBBB Rhytides Rhytidosis facialis Wenckebach second degree AV block Procedures Performed ???Esophagogastroduodenoscopy Biopsy (07/21/2022)???Cardiac pacemaker procedure (07/09/2022) Tests Performed/Pending Glucose POCT Discharge Vitals Temperature??(Temporal Artery) 96.8 ??F (36 ??C) Heart Rate??(Monitored) 67 Respiratory Rate?? 16 Blood Pressure?? 127/66?? Allergies morphine??(nausea) sulfa drugs??(Lip swelling) tetracyclines??(Stomach ache) Education Materials Gastroesophageal Reflux Disease, Adult Gastroesophageal reflux (DELL) happens when acid from the stomach flows up into the tube that connects the mouth and the stomach (esophagus). Normally, food travels down the esophagus and stays in thestomach to be digested. However, when a person has DELL, food and stomach acid sometimes move back up into the esophagus. If this becomes a more serious problem, the person may be diagnosed with a disease called gastroesophageal reflux disease (GERD). GERD occurs when the reflux: ? Happens often. ? Causes frequent or severe symptoms. ? Causes problems such as damage to the esophagus. When stomach acid comes in contact with the esophagus, the acid may cause inflammation in the esophagus. Over time, GERD may create small holes (ulcers) in the lining of the esophagus. What are the causes? This condition is caused by a problem with the muscle between the esophagus and the stomach (lower esophageal sphincter, or LES). Normally, the LES muscle closes after food passes through the esophagus to the stomach. When the LES is weakened or abnormal, it does not close properly, and that allowsfood and stomach acid to go back up into the esophagus. The LES can be weakened by certain dietary substances, medicines, and medical conditions, including: ? Tobacco use. ? . ? Having a hiatal hernia. ? Alcohol use. ? Certain foods and beverages, such as coffee, chocolate, onions, and peppermint. What increases the risk? You are more likely to develop this condition if you: ? Have an increased body weight. ? Have a connective tissue disorder. ? Take NSAIDs, such as ibuprofen. What are the signs or symptoms? Symptoms of this condition include: ? Heartburn. ? Difficult or painful swallowing and the feeling of having a lump in the throat. ? A bitter taste in the mouth. ? Bad breath and having a large amount of saliva. ? Having an upset or bloated stomach and belching. ? Chest pain. Different conditions can cause chest pain. Make sure you see your health care provider if you experience chest pain. ? Shortness of breath or wheezing. ? Ongoing (chronic) cough or a nighttime cough. ? Wearing away of tooth enamel. ? Weight loss. How is this diagnosed? This condition may be diagnosed based on a medical history and a physical exam. To determine if youhave mild or severe GERD, your health care provider may also monitor how you respond to treatment. You may also have tests, including: ? A test to examine your stomach and esophagus with a small camera (endoscopy). ? A test that measures the acidity level in your esophagus. ? A test that measures how much pressure is on your esophagus. ? A barium swallow or modified barium swallow test to show the shape, size, and functioning of your esophagus. How is this treated? Treatment for this condition may vary depending on how severe your symptoms are. Your health care provider may recommend: ? Changes to your diet. ? Medicine. ? Surgery. The goal of treatment is to help relieve your symptoms and to prevent complications. Follow these instructions at home: Eating and drinking ? Follow a diet as recommended by your health care provider. This may involve avoiding foods and drinks such as: ? Coffee and tea, with or without caffeine. ? Drinks that contain alcohol. ? Energy drinks and sports drinks. ? Carbonated drinks or sodas. ? Chocolate and cocoa. ? Peppermint and mint flavorings. ? Garlic and onions. ? Horseradish. ? Spicy and acidic foods, including peppers, chili powder, to powder, vinegar, hot sauces, and barbecue sauce. ? Eupora fruit juices and citrus fruits, such as oranges, ana, and limes. ? Tomato-based foods, such as red sauce, chili, salsa, and pizza with red sauce. ? Fried and fatty foods, such as donuts, chilean fries, potato chips, and high-fat dressings. ? High-fat meats, such as hot dogs and fatty cuts of red and white meats, such as rib eye steak, sausage, ham, and carranza. ? High-fat dairy items, such as whole milk, butter, and cream cheese. ? Eat small, frequent meals instead of large meals. ? Avoid drinking large amounts of liquid with your meals. ? Avoid eating meals during the 2???3 hours before bedtime. ? Avoid lying down right after you eat. ? Do not exercise right after you eat. Lifestyle ? Do not use any products that contain nicotine or tobacco. These products include cigarettes, chewing tobacco, and vaping devices, such as e-cigarettes. If you need help quitting, ask your health careprovider. ? Try to reduce your stress by using methods such as yoga or meditation. If you need help reducing stress, ask your health care provider. ? If you are overweight, reduce your weight to an amount that is healthy for you. Ask your health care provider for guidance about a safe weight loss goal. General instructions ? Pay attention to any changes in your symptoms. ? Take wdcr-izm-ncbenjr and prescription medicines only as told by your health care provider. Do not take aspirin, ibuprofen, or other NSAIDs unless your health care provider told you to take these medicines. ? Wear loose-fitting clothing. Do not wear anything tight around your waist that causes pressure on your abdomen. ? Raise (elevate) the head of your bed about 6 inches (15 cm). You can use a wedge to do this. ? Avoid bending over if this makes your symptoms worse. ? Keep all follow-up visits. This is important. Contact a health care provider if: ? You have: ? New symptoms. ? Unexplained weight loss. ? Difficulty swallowing or it hurts to swallow. ? Wheezing or a persistent cough. ? A hoarse voice. ? Your symptoms do not improve with treatment. Get help right away if: ? You have sudden pain in your arms, neck, jaw, teeth, or back. ? You suddenly feel sweaty, dizzy, or light-headed. ? You have chest pain or shortness of breath. ? You vomit and the vomit is green, yellow, or black, or it looks like blood or coffee grounds. ? You faint. ? You have stool that is red, bloody, or black. ? You cannot swallow, drink, or eat. These symptoms may represent a serious problem that is an emergency. Do not wait to see if the symptoms will go away. Get medical help right away. Call your local emergency services (911 in the [place] Do not drive yourself to the hospital. Summary ? Gastroesophageal reflux happens when acid from the stomach flows up into the esophagus. GERD is a disease in which the reflux happens often, causes frequent or severe symptoms, or causes problems such as damage to the esophagus. ? Treatment for this condition may vary depending on how severe your symptoms are. Your health care provider may recommend diet and lifestyle changes, medicine, or surgery. ? Contact a health care provider if you have new or worsening symptoms. ? Take qjpt-uha-ccncwef and prescription medicines only as told by your health care provider. Do not take aspirin, ibuprofen, or other NSAIDs unless your health care provider told you to do so. ? Keep all follow-up visits as told by your health care provider. This is important. This information is not intended to replace advice given to you by your health care provider. Make sure you discuss any questions you have with your health care provider. Document Revised: 09/15/2020 Document Reviewed: 09/15/2020 [employer] Patient Education ?? 2021 [employer] Hiatal Hernia A hiatal hernia occurs when part of the stomach slides above the muscle that separates the abdomen from the chest (diaphragm). A person can be born with a hiatal hernia (congenital), or it may develop over time. In almost all cases of hiatal hernia, only the top part of the stomach pushes through the diaphragm. Many people have a hiatal hernia with no symptoms. The larger the hernia, the more likely it is that you will have symptoms. In some cases, a hiatal hernia allows stomach acid to flow back into the tube that carries food from your mouth to your stomach (esophagus). This may cause heartburn symptoms. Severe heartburn symptoms may mean that you have developed a condition called gastroesophageal reflux disease (GERD). What are the causes? This condition is caused by a weakness in the opening (hiatus) where the esophagus passes through the diaphragm to attach to the upper part of the stomach. A person may be born with a weakness in thehiatus, or a weakness can develop over time. What increases the risk? This condition is more likely to develop in: ? Older people. Age is a major risk factor for a hiatal hernia, especially if you are over the age of50. ? women. ? People who are overweight. ? People who have frequent constipation. What are the signs or symptoms? Symptoms of this condition usually develop in the form of GERD symptoms. Symptoms include: ? Heartburn. ? Belching. ? Indigestion. ? Trouble swallowing. ? Coughing or wheezing. ? Sore throat. ? Hoarseness. ? Chest pain. ? Nausea and vomiting. How is this diagnosed? This condition may be diagnosed during testing for GERD. Tests that may be done include: ? X-rays of your stomach or chest. ? An upper gastrointestinal (GI) series. This is an X-ray exam of your GI tract that is taken after you swallow a chalky liquid that shows up clearly on the X-ray. ? Endoscopy. This is a procedure to look into your stomach using a thin, flexible tube that has a tiny camera and light on the end of it. How is this treated? This condition may be treated by: ? Dietary and lifestyle changes to help reduce GERD symptoms. ? Medicines. These may include: ? Zefk-ldm-xkkigks antacids. ? Medicines that make your stomach empty more quickly. ? Medicines that block the production of stomach acid (H2 blockers). ? Stronger medicines to reduce stomach acid (proton pump inhibitors). ? Surgery to repair the hernia, if other treatments are not helping. If you have no symptoms, you may not need treatment. Follow these instructions at home: Lifestyle and activity ? Do not use any products that contain nicotine or tobacco, such as cigarettes and e-cigarettes. If you need help quitting, ask your health care provider. ? Try to achieve and maintain a healthy body weight. ? Avoid putting pressure on your abdomen. Anything that puts pressure on your abdomen increases the amount of acid that may be pushed up into your esophagus. ? Avoid bending over, especially after eating. ? Raise the head of your bed by putting blocks under the legs. This keeps your head and esophagus higher than your stomach. ? Do not wear tight clothing around your chest or stomach. ? Try not to strain when having a bowel movement, when urinating, or when lifting heavy objects. Eating and drinking ? Avoid foods that can worsen GERD symptoms. These may include: ? Fatty foods, like fried foods. ? [place] fruits, like oranges or lemon. ? Other foods and drinks that contain acid, like orange juice or tomatoes. ? Spicy food. ? Chocolate. ? Eat frequent small meals instead of three large meals a day. This helps prevent your stomach from getting too full. ? Eat slowly. ? Do not lie down right after eating. ? Do not eat 1???2 hours before bed. ? Do not drink beverages with caffeine. These include cola, coffee, cocoa, and tea. ? Do not drink alcohol. General instructions ? Take nast-pcn-wyygiqh and prescription medicines only as told by your health care provider. ? Keep all follow-up visits as told by your health care provider. This is important. Contact a health care provider if: ? Your symptoms are not controlled with medicines or lifestyle changes. ? You are having trouble swallowing. ? You have coughing or wheezing that will not go away. Get help right away if: ? Your pain is getting worse. ? Your pain spreads to your arms, neck, jaw, teeth, or back. ? You have shortness of breath. ? You sweat for no reason. ? You feel sick to your stomach (nauseous) or you vomit. ? You vomit blood. ? You have bright red blood in your stools. ? You have black, tarry stools. Summary ? A hiatal hernia occurs when part of the stomach slides above the muscle that separates the abdomen from the chest (diaphragm). ? A person may be born with a weakness in the hiatus, or a weakness can develop over time. ? Symptoms of hiatal hernia may include heartburn, trouble swallowing, or sore throat. ? Management of hiatal hernia includes eating frequent small meals instead of three large meals a day. ? Get help right away if you vomit blood, have bright red blood in your stools, or have black, tarry stools. This information is not intended to replace advice given to you by your health care provider. Make sure you discuss any questions you have with your health care provider. Document Revised: 02/05/2021 Document Reviewed: 02/05/2021 [employer] Patient Education ?? 2021 [employer] Patient Name:TALIA JONES I I have received this information and my questions have been answered. Patient/Record Changer Assembler Name: Patient/Record Changer Assembler Signature: Relationship to Patient: Witness Name/Signature: Date: Electronically Signed on: 07/21/2022 10:49 EDTSigned by:POPEYE History and physical note * Renny Caro MD: PERFORM Event Display: History and Physical Authored Date: [id number] TALIA JONES I :1945 Age:77 years Sex:Female Visit Date:07/21/2022 Primary Care Physician: CHRIS GUO MD Chief Complaint EGD History of Present Illness 77-year-old??female??with longstanding GERD,??complains of 6 months of epigastric pain and difficulty swallowing solids.?? Mild improvement on PPI. Physical Exam Vitals & Measurements T:??36.6?C ??(Temporal Artery)?? HR:??78??(Monitored)?? RR:??18?? BP:??142/71?? SpO2:??98%?? [id number]:??Room air?? Well-developed well-nourished white female no acute distress Lungs: Clear auscultation bilaterally Heart: Regular rhythm S1-S2 Abdomen: Soft nontender Assessment/Plan 1.??Dysphagia??R13.10 EGD with possible dilation today. 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, First Dose: 07/21/22 7:55:00 EDT, Routine Sodium Chloride 0.9% 1,000 mL, Total Volume (mL): 1,000, 1,000 mL, Soln-IV, IV, 50 mL/hr, Start Date: 07/21/22 7:55:00 EDT, 83.46 kg, Populate Charting Weight From Order, 1.97, m2 Blood Glucose Monitoring POC RE, 07/21/22 7:55:00 EDT, Stop date 07/21/22 7:55:00 EDT NPO, 07/21/22 7:55:00 EDT, Constant Indicator Obtain consent, 07/21/22 7:55:00 EDT, Constant Order Peripheral IV Insertion, 07/21/22 7:55:00 EDT Saline Lock Convert From IV, 07/21/22 7:55:00 EDT, Stop date 07/21/22 7:55:00 EDT Vital Signs, 07/21/22 7:55:00 EDT, Stop date 07/21/22 7:55:00 EDT, Routine Problem List/Past Medical History Ongoing Allergic rhinitis Bilateral cataracts Breast cancer Capsulitis Cardiomyopathy, non-ischemic Depressive disorder Diverticulosis of colon without diverticulitis DM - Diabetes mellitus Dysphagia GERD - Gastro-esophageal reflux disease Hyperlipidemia IBS - Irritable bowel syndrome Obesity RBBB Rhytides Rhytidosis facialis Wenckebach second degree AV block Historical No qualifying data Procedure/Surgical History ???Cardiac pacemaker procedure (07/09/2022)???Colonoscopy (07/14/2016)???Breast reconstruction???Cardiac catheterization???Cholecystectomy???Colonoscopy???EGD - Esophagogastroduodenoscopy???Mastectomy of left breast???Mastectomy of right breast Medications Inpatient Normal Saline Flush, 10 mL, IV Flush, As Directed, PRN Sodium Chloride 0.9% 1,000 mL, 1000 mL, IV Home metFORMIN 500 mg oral tablet, 1.5 tabs, [...] GPARENT, at age: Unknown. Cause of : Lab Results Test Name Test Result Date/Time Glucose POC 157 07/21/2022 08:34 EDT Electronically Signed on 07/21/22 09:28 AM Renny Caro MD Patient Care team information Care Team Personnel Name: CHRIS GUO MD Position: No Access Member Role: Primary Care Physician Address: Address: [address] [place] [id number] [facility] Care Team Related Persons Name: VIRAJ JONES Address: Home [address] [place] [phone] [facility]
[2023-02-24 15:24] LABS: Abs Immature Grans 0.02 10^3/uL (0.0-0.06); Absolute Basophil Count 0.06 10^3/uL (0.0-0.2); Absolute Eosinophil Count 0.07 10^3/uL (0.0-0.7); Absolute Lymphocyte Count 1.91 10^3/uL (1.2-3.4); Absolute Monocyte Count 0.69 10^3/uL (0.1-0.8); Absolute Neutrophil Count 4.58 10^3/uL (1.2-6.7); Basophils % 0.8; HCT 38.2 % (36.0-46.0); HGB 12.5 g/dL (11.2-15.7); Immature Grans % 0.3; Lymphocytes % 26.1; MCH 28.6 pg (27.0-33.0); MCHC 32.7 % (32.0-36.0); MCV 87 fL (80-95); MPV 9.7 fL (8.0-11.0); Monocytes % 9.4; Neutrophils % 62.4; Platelet Count 252 10^3/uL (130-400); RBC 4.37 10^6/uL (3.93-5.22); RDW 13.3 % (11.7-14.6); RDW-SD 42.8 fL; WBC 7.33 10^3/uL (4.4-10.8)
[2023-02-24 16:40] LABS: ALT 24 U/L (14-59); AST 22 U/L (15-37); Albumin 3.8 g/dL (3.4-5.0); Alkaline Phosphatase 73 U/L (46-116); Anion Gap 8.6 mmol/L (3-11); BUN 15 mg/dL (7-18); CO2 29.4 mmol/L (21.0-32.0); CREATININE 1.1 mg/dL (0.55-1.02); Calcium 9.2 mg/dL (8.5-10.1); Chloride 103 mmol/L (98-107); Estimated GFR 51.43 (mL/min/1.73m2); Glucose 157 mg/dL (74-106); Potassium 3.7 mmol/L (3.5-5.1); Sodium 141 mmol/L (136-145); Total Protein 7.2 g/dL (6.4-8.2)
== END 2023-02-24 04:37 | disposition home or self-care (01) ==
LOC: LBO 04:36
PROVIDERS: PCP Family Medicine; Visit Provider Family Medicine
DX: D64.9 Anemia, unspecified (principal); R10.9 Unspecified abdominal pain
CPT/HCPCS: 36415; 80053; 85025

== ENCOUNTER → 2023-04-06 01:38 | Outpatient (CLI) | payer MEDICARE, SELFPAY ==
--- NOTE | 2023-04-06 08:00 | DI.US_ITS ---
APPROVED REPORT EXAM: Comprehensive 2D, Doppler, and color-flow Echocardiogram Patient Location: Out-Patient Marketing Assistant Retail Division: José Gannon RDCS (AE) Indications: cardiomyopathy, systolic dysfunction, mitral regurgitation Other Information Technically limited study due to body habitus, breast implants.. Conclusion Technically difficult study 1. LA/LV mildly dilated,RA/RV noprmal sizes. 2. Moderate global LV hypokinesis, EF 40-45%. Normal RV function.Device lead in right heart. 3. Anatomically normal valves.Mild MR,trace TR. 4. No intracardiac shunt 5. No pericardial effusion. Wall motion Left Ventricle The left ventricle is grossly normal size. Technically limited parasternal imaging due to body habitu s and breast implants. Left ventricular systolic function is moderately decreased. The left ventricle wall thickness is grossly normal size. There is no ventricular septal defect visualized. LVEF is 36% . Right Ventricle The right ventricle is normal size. Right ventricular systolic function is grossly normal. Atria The left atrium size is normal. The right atrium size is normal. The interatrial septum is intact wit h no evidence for an atrial septal defect. Aortic Valve The aortic valve is normal in structure. Aortic valve is trileaflet. There is no aortic valvular sten osis. No aortic regurgitation is present. Mitral Valve The mitral valve is normal in structure. No evidence of mitral valve stenosis. Mild to moderate jannie l regurgitation. Tricuspid Valve The tricuspid valve is normal in structure. There is no tricuspid valve stenosis. Trace tricuspid reg urgitation. Unable to assess PA pressure. Pulmonic Valve The pulmonary valve is normal in structure. There is no pulmonic valvular stenosis. There is no pulmo lita valvular regurgitation. Great Vessels The aortic root appears normal in size. The ascending aorta is normal in size. Aortic arch is normal in caliber. IVC is normal in size and collapses >50% with inspiration. Pericardium There is no pericardial effusion. 2D Dimensions Ao Asc Diam d 3.54 cm F: 2.3 - 3.1 M-Mode TAPSE 1.94 cm (M/F) >1.7 Auto EF LV EDV A4C 175.0 mL LV EDV A2C 90.4 mL LV EDV BP 125.9 mL LV ESV A4C 116.3 mL LV ESV A2C 56.3 mL LV ESV BP 80.9 mL LVEF(%) A4C 33.6 % LVEF(%) A2C 37.7 % LVEF(%) BP 35.7 % LV SV A4C 58.7 ml LV SV A2C 34.1 ml LV SV BP 44.9 ml LV CO A4C 4.0 L/min LV CO A2C 2.1 L/min LV CO BP 3.1 L/min HR A4C 68.18 BPM HR A2C 62.83 BPM LV EDV Index (BP) LA Volume LA Length A4C 3.9 cm LA Length A2C 5.4 cm LA Area A4C s 8.97 cm2 LA Area A2C s 11.19 cm2 LA Vol A4C A-L 17.38 mL LA Vol A2C A-L 19.72 mL LA Vol Biplane A-L 21.7 mL LA Vol/BSA A4C A-L LA Vol/BSA A2C A-L LA Vol/BSA BP A-L 11.5 mL/m2 LA Vol A4C MOD 17.4 mL LA Vol A2C MOD 19.0 mL LA Vol BP MOD 21.0 mL RA Volume RA Area A4C 8.5 cm2 RA ESV A4C (A-L) 15.9mL RA Vol/BSA A4C A-L RA Length A4C 3.8 cm RA ESV A4C (MOD) 15.7mL LV Diastology MV E' medial 0.037 (>0.07 m/s) MV E Vmax 0.71 (0.4-1.3 m/s) MV E/E' MED 19.04 (<14) MV A Vmax 1.25 (0.4-1.3 m/s) MV E' lateral 0.055 (>0.1 m/s) E/A Ratio 0.6 MV E/E' LAT 12.78 (<14) MV E' Average 0.046 m/s MV E/E'(average) 15.29 Aortic Valve AoV Vmax 1.18 m/s LVOT Vmax 0.84 m/s AoV Peak Grad 5.6 mmHg LVOT Peak Grad 2.8 mmHg AoV VTI 0.270 m LVOT VTI 0.183 m AoV Mean Laz. 0.84 m/s LVOT Mean Grad 1.5 mmHg AoV Mean Grad 3.3 mmHg Velocity Ratio 0.71 Mitral Valve MV DT 216 (160-240 msec) Pulmonary Valve PV Vmax 0.62 (0.5-1.5 m/s) RVOT Vmax 0.45 m/s PV Peak Grad 1.6 mmHg RVOT Peak Gr. 0.8 mmHg PV Mean Laz 0.52 m/s RVOT VTI 0.111 m PV Mean Grad 1.1 mmHg RVOT Mean Gr. 0.3 mmHg
== END ==
PROVIDERS: PCP Family Medicine; Visit Provider Internal Medicine Cardiovascular Disease
DX: I34.0 Nonrheumatic mitral (valve) insufficiency (principal); I42.8 Other cardiomyopathies; I51.9 Heart disease, unspecified
CPT/HCPCS: 93306

== ENCOUNTER → 2023-04-12 03:04 | Outpatient (CLI) | payer MEDICARE, SELFPAY ==
--- NOTE | 2023-04-12 14:25 | DI.RAD_ITS ---
Exam(s) XR CHEST 2V PA LATERAL EXAM: XR CHEST 2V PA LATERAL CLINICAL HISTORY: generalized pruritis,pruritic condition,L29.9 TECHNIQUE: 2D digital imaging was performed. COMPARISON: CR,XR XR PORTABLE CHEST AP from 07/07/2022 FINDINGS: HEART: Mildly enlargedz pacemaker Aorta: Not dilated. PULMONARY VASCULATURE: Normal. LUNGS: Clear. PLEURAL SPACE: No pleural effusion or pneumothorax. BONE:Unremarkable for age. Soft tissues: Breast implants. IMPRESSION: No acute abnormality. DATA REPOSITORY: RADIATION DOSE DELIVERED:
== END ==
PROVIDERS: PCP Family Medicine; Visit Provider Family Medicine
DX: L29.9 Pruritus, unspecified (principal)
CPT/HCPCS: 71046

== ENCOUNTER 2023-04-13 02:55 | Outpatient (CLI) | payer MEDICARE, SELFPAY ==
[2023-04-13 14:13] LABS: TSH (W/Ref FT4) 2.79 uIU/mL (0.36-3.74)
== END 2023-04-13 02:56 | disposition home or self-care (01) ==
PROVIDERS: PCP Family Medicine; Visit Provider Family Medicine
DX: E03.9 Hypothyroidism, unspecified (principal)
CPT/HCPCS: 36415; 84443

== ENCOUNTER 2023-05-03 08:04 | Outpatient (CLI) | payer MEDICARE, SELFPAY ==
--- NOTE | 2023-05-03 08:00 | RT.EKG_ITS ---
APPROVED REPORT Exam: Resting ECG Reason for Exam: [facility] Patient Location: O HR:67 bpm ECG Measurements Heart Rate 67 AXIS WV 221 P 4 QRSd 164 QRS -67 QT 466 T 58 QTc 492 Conclusion Sinus rhythm...normal P axis, V-rate 50- 99 Prolonged WV interval...WV >220, V-rate 50- 90 IVCD, consider atypical RBBB...QRSd>120mS, terminal axis(90,270)
== END 2023-05-03 08:05 | disposition home or self-care (01) ==
LOC: DI.CARD 08:05
PROVIDERS: PCP Family Medicine; Visit Provider Internal Medicine Cardiovascular Disease
DX: I42.8 Other cardiomyopathies (principal); Z95.0 Presence of cardiac pacemaker
CPT/HCPCS: 93010

== ENCOUNTER → 2023-05-03 08:47 | Outpatient (BNVA) | payer MEDICARE, SELFPAY | PROVIDERS: PCP Family Medicine; Visit Provider Internal Medicine Cardiovascular Disease | DX: I10 Essential (primary) hypertension (principal); I42.8 Other cardiomyopathies; I34.0 Nonrheumatic mitral (valve) insufficiency; Z95.0 Presence of cardiac pacemaker | CPT/HCPCS: 93005; 99213 ==

== ENCOUNTER → 2023-07-14 01:32 | Outpatient (CLI) | payer MEDICARE, SELFPAY ==
--- NOTE | 2023-07-14 08:15 | DI.RAD_ITS ---
Exam(s) XR THORACIC SPINE COMPLETE EXAM: XR THORACIC SPINE COMPLETE CLINICAL HISTORY: back pain M54.6 PAIN THORACIC SPINE. TECHNIQUE: 2D digital imaging was performed. Three views. COMPARISON: No exams were available for comparison FINDINGS: BONES: There is no fracture or destructive lesion. No compression fractures. Endplate osteophytes g reater eccentric toward the right in the lower thoracic region. ALIGNMENT: Within normal limits. DISKS: Interverebral disc spaces are maintained. SOFT TISSUE: Visualized lungs are clear. Pacemaker noted. Right upper quadrant surgical clips. IMPRESSION: Degenerative changes, greater in the lower thoracic spine. DATA REPOSITORY: RADIATION DOSE DELIVERED:
== END ==
PROVIDERS: PCP Family Medicine; Visit Provider Family Medicine
DX: M51.34 Other intervertebral disc degeneration, thoracic region (principal)
CPT/HCPCS: 72072

== ENCOUNTER 2023-07-27 05:31 | Outpatient (CLI) | payer MEDICARE, SELFPAY ==
[2023-07-27 14:05] LABS: Iron 63 ug/dL (50-170)
[2023-07-27 14:32] LABS: Vitamin B12 585 pg/mL (193-986)
== END 2023-07-27 05:32 | disposition home or self-care (01) ==
LOC: LBO 05:32
PROVIDERS: PCP Family Medicine; Visit Provider Family Medicine
DX: D64.9 Anemia, unspecified (principal)
CPT/HCPCS: 36415; 82607; 83540

== ENCOUNTER 2023-10-05 07:50 | Outpatient (CLI) | payer MEDICARE, SELFPAY ==
--- NOTE | 2023-10-05 07:45 | RT.EKG_ITS ---
APPROVED REPORT Exam: Resting ECG Reason for Exam: RBBB Patient Location: O HR:69 bpm ECG Measurements Heart Rate 69 AXIS TN 245 P -10 QRSd 120 QRS -65 QT 431 T 97 QTc 462 Conclusion Sinus rhythm...normal P axis, V-rate 50- 99 Prolonged TN interval...TN >220, V-rate 50- 90 Probable left atrial enlargement...P >50mS, <-0.10mV V1 RBBB...QRSd>120mS, terminal axis(90,270) LAFB Baseline wander in lead(s) V1,V5
== END 2023-10-05 07:51 | disposition home or self-care (01) ==
LOC: DI.CARD 07:51
PROVIDERS: PCP Family Medicine; Visit Provider Physician Assistant
DX: I45.10 Unspecified right bundle-branch block (principal); Z95.0 Presence of cardiac pacemaker; R55 Syncope and collapse
CPT/HCPCS: 93010

== ENCOUNTER → 2023-10-05 13:52 | Outpatient (BNVA) | payer MEDICARE, SELFPAY | PROVIDERS: PCP Family Medicine; Referring Provider Family Medicine; Visit Provider Physician Assistant | DX: Z95.810 Presence of automatic (implantable) cardiac defibrillator (principal); R55 Syncope and collapse; I45.10 Unspecified right bundle-branch block | CPT/HCPCS: 93005; 93280 ==

== ENCOUNTER 2024-02-06 00:45 | Outpatient (CLI) | payer MEDICARE, SELFPAY ==
--- NOTE | 2024-02-06 07:00 | DI.NM_ITS ---
APPROVED REPORT Exam: Pharmacologic Patient Location: Out-Patient Room/Bed: Stress Nurse: Siobhan Viera RN Ordering Provider:CHRIS GUO, Contact Number: [phone] BMI: 28.03 Baseline Rhythm: Paced Indications: SALAZAR, chest pain Medical History Medical History: Diabetes, SALAZAR, pacemaker, RBBB, Mobitz type I block, syncope, nonischemic cardiomyop athy, GERD, HLD, mitral regurgitation, systolic dysfunction Cardiac Medications: Pravastatin, trazodone, aspirin Allergies: Sulfa, morphine, tetracycline, lisinopril Cardiac Risk Factors: Family hx, diabetes, HLD Previous Cardiac Procedures: Pacemaker placement, cardiac cath Pretest Chest Pain Characteristics: None Exercise History: Sedentary Physical Disabilities: Hx Falls Lung Sounds: fine crackles LLB Heart Sounds: Regular Stress Test Details Test: Pharmacologic stress testing performed using 0.4 mg of regadenoson per 5 mL given IV over 10 s econds. Reason for pharmacologic stress test: Pacemaker, hx falls . Nuclear Acquisition: Rest Tc-99m/Stress Tc-99m 1 day Rest Isotope: Tc-99m Sestamibi. Dose: 10.0 Date: 02/06/2024 Injection Time: 0900 Stress Isotope: Tc-99m Sestamibi. Dose: 31.0 Date: 02/06/2024 Injection Time: 1038 HR Resting HR Supine: 60 bpm Max Heart Rate (APMHR): 142.044578 bpm Target HR (85% APMHR): 120.682961 bpm Max HR Achieved: 86 bpm % of APMHR: 60.56 Recovery HR: 68 bpm BP Resting BP Supine: 158/78 mmHg Max BP: 162/78 mmHg Recovery BP: 148/68 mmHg ECG Resting ECG: Paced Rhythm Stress ECG: Paced Rhythm ST Change: Nondiagnostic low heart rate Recovery ECG: Paced Rhythm Recovery ST Change: Nondiagnostic low heart rate Clinical Stress Symptoms: 4/10 chest tightness Angina Score: Non-Limiting Rate Pressure Product: [id number] Stress ECG Conclusion 1. EKG showed atrial and ventricular pacing 2. Patient underwent testing using pharmacologic stress with regadenoson 3. Peak heart rate achieved was 61% of maximal predicted for age 4. The electrocardiographic portion of the test was nondiagnostic 5. See MPI report Stress Test Summary STAGE HR BP SpO2 Symptoms NOTES Supine 60 158/78 96% 1 min post Lexiscan injection 63 162/78 97% 3 min post Lexiscan injection 80 142/70 98% 4/10 chest tightness 6 min post Lexiscan injection 68 148/68 98% 3/10 chest tightness 9 min post Lexiscan injection 66 98% All symptoms resolved Patient noted to have fine crackles to LLB. Ok to proceed with lexiscan injection per Dr. Polanco. Nuzhat nt proceeded to imaging post pharmacological test , ambulatory in no apparent distress. MPI Conclusion Myocardial perfusion is normal. There is no ischemia or evidence of prior infarction Calculated EF is 38%. Visually it appears higher, closer to 50% Radiologist Interpretation Radiologist agrees with Senior C Developer's Interpretation. Radiologist Interpretation by: Herbert Cordero MD Interpretation Date/Time: 02/06/2024 19:26:18
[2024-02-06] MEDS: Regadenoson 0.4 MG/5 ML SYR IVP (11:10)
== END 2024-02-06 01:05 ==
LOC: DI 00:46
PROVIDERS: PCP Family Medicine; Visit Provider Family Medicine
DX: I48.0 Paroxysmal atrial fibrillation (principal)
CPT/HCPCS: 78452; 93016; 93018; 93017; J2785

== ENCOUNTER → 2024-05-03 12:47 | Outpatient (BNVA) | payer MEDICARE, SELFPAY | PROVIDERS: PCP Family Medicine; Referring Provider Family Medicine; Visit Provider Internal Medicine Cardiovascular Disease | DX: I42.8 Other cardiomyopathies (principal); Z95.0 Presence of cardiac pacemaker | CPT/HCPCS: 99213 ==

== ENCOUNTER 2024-08-03 14:09 | Outpatient (REF) | payer MEDICARE, SELFPAY ==
[2024-08-03 21:59] LABS: Bilirubin Negative (Negative); Blood Negative (Negative); Clarity Clear (Clear); Glucose Negative (Negative); Ketones Negative (Negative); Leukocyte Esterase Negative (Negative); Nitrite Negative (Negative); Urobilinogen 0.2 mg/dL (Up to 0.2)
== END 2024-08-03 14:10 | disposition home or self-care (01) ==
LOC: LBN 14:09
PROVIDERS: PCP Family Medicine; Visit Provider Physician Assistant
DX: R30.0 Dysuria (principal)
CPT/HCPCS: 81003

== ENCOUNTER → 2024-10-03 08:18 | Outpatient (BNVA) | payer MEDICARE, SELFPAY | PROVIDERS: PCP Family Medicine; Referring Provider Family Medicine; Visit Provider Student in an Organized Health Care Education/Training Program | DX: R55 Syncope and collapse (principal); Z45.018 Encounter for adjustment and management of other part of cardiac pacemaker; E11.9 Type 2 diabetes mellitus without complications | CPT/HCPCS: 93280 ==

== ENCOUNTER 2024-10-13 09:42 | Outpatient (CLI) | payer MEDICARE, SELFPAY ==
--- NOTE | 2024-10-13 09:30 | RT.EKG_ITS ---
APPROVED REPORT Exam: Resting ECG Reason for Exam: chest pain Patient Location: O HR:73 bpm ECG Measurements Heart Rate 73 AXIS UT 224 P 41 QRSd 156 QRS -57 QT 436 T 120 QTc 481 Conclusion Atrial-sensed ventricular-paced complexes...other complexes also detected No further analysis attempted due to paced rhythm
== END 2024-10-13 09:43 | disposition home or self-care (01) ==
LOC: DI.CM 09:44
PROVIDERS: PCP Family Medicine; Visit Provider Physician Assistant
DX: R07.9 Chest pain, unspecified (principal)
CPT/HCPCS: 93010

== ENCOUNTER 2024-10-17 02:26 | Outpatient (CLI) | payer MEDICARE, SELFPAY ==
--- NOTE | 2024-10-17 07:19 | DI.RAD_ITS ---
Exam(s) XR CERVICAL SPINE COMP 4-5V EXAM: XR CERVICAL SPINE COMP 4-5V CLINICAL HISTORY: Right sided neck pain and bilateral stiffness M54.2 CERVICALGIA. TECHNIQUE: 2D digital imaging was performed. Five views were performed. COMPARISON: No exams were available for comparison FINDINGS: BONES: No fracture or destructive lesion. Vertebral bodies are unremarkable. There are advanced facet degenerative changes throughout. Findings appear greater on the left. The right neural foramen are suboptimally profiled. There is narrowing of the neural foramen on the left at C3-4 and C4-5. DISKS: Intervertebral disc spaces are maintained. ALIGNMENT: Cervical spinal alignment is within normal limits. The odontoid and atlantoaxial articulations are normal. SOFT TISSUE: Normal. The lung apices are clear. IMPRESSION: Prominent facet joint degenerative changes which appear greater on the left which cause neural foraminal narrowing at C3-4 and C4-5. DATA REPOSITORY: RADIATION DOSE DELIVERED:
== END 2024-10-17 02:46 ==
LOC: DI 02:26
PROVIDERS: PCP Family Medicine; Visit Provider Physician Assistant
DX: M54.2 Cervicalgia (principal)
CPT/HCPCS: 72050